=== PATIENT | female | born 1945 | race Caucasian/White ===

== ENCOUNTER → 2016-06-22 | Outpatient (CLI) | payer OTHER ==
[~2016-06-22] MED LIST: AMIT10TA6 PO; ASPCH81X PO; DICY10CA12 PO; FAMO40TA6 PO; GABA1CAP PO; GARL10007 PO; GLUT1POW PO; MISCCAP80 PO
--- NOTE | 2016-06-22 12:32 | DIAGNOSTIC IMAGING REPORT ---
VIDEO SWALLOW STUDY CLINICAL HISTORY: Dysphagia. COMPARISON STUDY: Barium esophagram dated 07/27/2013. Fluoroscopy time: 1.9 minutes. FINDINGS: Fluoroscopic guidance was provided to the Department of speech pathology in performing a video swallow study. The patient consumed barium impregnated pudding, cracker with paste, nectar thick liquid, and thin barium while the swallowing mechanism was observed in real-time. No penetration or aspiration was seen with any of the sampled textures. No significant dysmotility was identified. IMPRESSION: No penetration or aspiration was identified with any of the sampled textures. See dedicated speech pathology report for detailed findings and recommendations. Dictated: 06/22/2016 12:10 PM Transcribed: 06/22/2016 12:32 PM LONNIE_Dieudonne Electronically signed by: Harpreet Bender M.D. 06/22/2016 12:36 PM Dictated Date/Time: 06/22/2016 12:10 PM
--- NOTE | 2016-06-22 15:20 | SWALLOWING EVALUATION ---
HISTORY: This 71 year-old female was referred for a VFSS at [facility] in order to address c/o solid food dysphagia. The patient has a PMH significant for EGD completed in April 2016 that revealed Mckeon's esophagus and a small hiatal hernia. Other PMH: arthritis, asthma, high cholesterol and hypertension. Currently the patient's diet level is regular, but she avoids certain foods (e.g., carrots, chicken). PROCEDURE: The patient was seen in the Radiology Department of [facility] for the VFSS. Cursory examination of the oral cavity revealed adequate dentition. Movement of the articulators was WNL. The patient was seated on a stool and was viewed in both the Anterior-Posterior (A-P) and Lateral planes. Volitional phonation exercises completed in the A-P plane revealed bilateral vocal fold movement and vocal intensity within functional limits, but a hoarse vocal quality. In the lateral plane, the patient was given the following boluses: 1 tsp. thin liquid barium x 2, single swallow thin liquid barium self-presented from a cup, sequential swallows of thin liquid barium self-presented from a cup, 1 tsp. nectar-thick liquid barium, single swallow nectar-thick liquid barium self-presented from a cup, 1 tsp. barium pudding, and 1 club cracker with barium pudding. The patient was then repositioned into the A-P plane and given 1 tsp. barium pudding. RESULTS: Oral Stage: Lip closure, lingual control, bolus preparation, bolus transport were all WNL. No oral residue after the swallow. Initiation of the pharyngeal swallow occurred when the bolus head was at the posterior angle of the ramus. No oral-stage dysphagia. Pharyngeal Stage: Soft palate elevation, laryngeal elevation, anterior hyoid excursion, epiglottic inversion, laryngeal vestibular closure were all completed WNL. Pharyngeal stripping wave, pharyngeal contraction (AP plane), PES opening distention and duration, and tongue base contraction were complete. There were no pharyngeal residuals after the swallow. No penetration or aspiration during this study. Pharyngeal stage of the swallow was WNL. Pt was hesitant to swallow the masticated cracker bolus, but when she swallowed the bolus transitioned to the esophagus as a cohesive unit WNL. Esophageal Stage: Esophageal coating as bolus transited the esophagus, but no bolus retention. SUMMARY/RECOMMENDATIONS: This patient presents with normal oral-pharyngeal swallowing function and no s/s esophageal dysfunction. The following is recommended: 1. Diet as tolerated 2. Compensatory strategies: can alternate solids and liquids during meals if more comfortable for the patient to do so 3. Consideration of f/u with ENT services re: hoarse voice. May also need outpatient TELEHEALTH COORDINATOR treatment for dysphonia. A summary of the results and recommendations was discussed with the patient immediately following the study. She is anticipating f/u with the referring physician. Thank you for referral of this patient. Please contact me at if any additional information is needed.
== END | disposition home or self-care (01) ==
LOC: C.RAD 11:14
PROVIDERS: ATTEND Family Medicine
DX: R13.10 Dysphagia, unspecified (principal)

== ENCOUNTER → 2016-07-06 | Outpatient (CLI) | payer OTHER ==
--- NOTE | 2016-07-06 13:53 | DIAGNOSTIC IMAGING REPORT ---
L-SPINE FLEX/EXT BENDING MIN 6 CLINICAL HISTORY: LOW BACK PAIN pain COMPARISON STUDY: None FINDINGS: Vertebral body stature is normal throughout. Mild degenerative intervertebral disc changes throughout. Minimal degenerative change vertebral endplates. No evidence for compression deformity. IMPRESSION: Mild degenerative change. No acute process. No evidence for subluxation with the patient in flexion or extension Electronically signed by: Jamil Matson M.D. 07/06/2016 1:52 PM Dictated Date/Time: 07/06/2016 1:51 PM
== END | disposition home or self-care (01) ==
LOC: C.RAD 12:52
PROVIDERS: ATTEND Family Medicine
DX: M54.5 Low back pain (principal)

== ENCOUNTER → 2016-07-24 | Outpatient (CLI) | payer OTHER ==
--- NOTE | 2016-07-26 08:05 | PULMONARY FUNCTION TEST ---
INTERPRETATION: The spirometry reveals mild obstruction with no change in the airflow with the use of albuterol. The diffusion capacity when corrected for alveolar volume is slightly increased.
== END | disposition home or self-care (01) ==
LOC: C.RC 12:17
PROVIDERS: ATTEND Family Medicine
DX: R06.02 Shortness of breath (principal); R05 Cough; J45.909 Unspecified asthma, uncomplicated

== ENCOUNTER → 2016-09-25 | Outpatient (CLI) | payer OTHER ==
--- NOTE | 2016-09-25 16:18 | MAMMOGRAPHY REPORT ---
BILATERAL DIGITAL SCREENING MAMMOGRAM WITH CAD: 09/25/2016 CLINICAL HISTORY: Routine screening. Patient has no complaints. TECHNIQUE: Bilateral CC and MLO views were obtained. Current study was also evaluated with a Comput er Aided Detection (CAD) system. COMPARISON: Comparison is made to exams dated: 09/23/2015 mammogram, 09/21/2014 mammogram, 08/12/2013 m ammogram, 08/11/2012 mammogram, 08/09/2011 mammogram, and 08/07/2010 mammogram - [facility]. BREAST COMPOSITION: There are scattered areas of fibroglandular density in both breasts. FINDINGS: There is a 4 mm focal asymmetry in the anterior subareolar left breast, for which additio nal spot compression tomosynthesis views and possibly ultrasound are recommended. No other suspicious mass, architectural distortion or cluster of microcalcifications is seen bilater ally. IMPRESSION: ACR BI-RADS CATEGORY 0: INCOMPLETE EVALUATION: NEED ADDITIONAL IMAGING EVALUATION The 4 mm focal asymmetry in the left subareolar breast needs additional evaluation. The patient will be called to schedule an appointment. Approximately 10% of breast cancers are not detected with mammography. A negative mammographic repor t should not delay biopsy if a clinically suggestive mass is present. Sonia Newsome M.D. ay/:09/25/2016 15:56:25 Assembler Corncob Pipes: Constance [place], [facility] letter sent: Addl Imaging 0 BI-RADS Code: ACR BI-RADS Category 0: Incomplete Evaluation: Need Additional Imaging Evaluation
== END | disposition home or self-care (01) ==
LOC: C.MAMM 13:52
PROVIDERS: ATTEND Family Medicine
DX: Z12.31 Encounter for screening mammogram for malignant neoplasm of breast (principal); R92.8 Other abnormal and inconclusive findings on diagnostic imaging of breast

== ENCOUNTER → 2016-10-01 | Outpatient (CLI) | payer OTHER ==
--- NOTE | 2016-10-02 07:56 | MAMMOGRAPHY REPORT ---
UNILATERAL LEFT DIGITAL DIAGNOSTIC MAMMOGRAM TOMOSYNTHESIS AND TARGETED LEFT ULTRASOUND: 10/01/2016 CLINICAL HISTORY: 71-year-old woman called back from screening mammography for a faint 4 mm focal as ymmetry in the anterior upper inner subareolar left breast. TECHNIQUE: Spot compression left CC and MLO to the digital and tomosynthesis images of the anterior breast were obtained. COMPARISON: Comparison is made to exams dated: 09/25/2016 mammogram, 09/23/2015 mammogram, 09/21/2014 mammogram, 08/12/2013 mammogram, 08/11/2012 mammogram, and 08/09/2011 mammogram - [facility] enter. BREAST COMPOSITION: There are scattered areas of fibroglandular density in the left breast. FINDINGS: There is effacement of the 4 mm nodular focal asymmetry in the anterior upper inner subare olar left breast with the additional supplemental mammographic views including tomosynthesis images. There are 2 benign-appearing calcifications. No suspicious mass, architectural distortion or clus ter of microcalcifications is seen. Targeted ultrasound was performed in the superior, medial and periareolar/retroareolar left breast. In the 2:00 left breast, 1 cm from the nipple, there is a round, circumscribed anechoic benign simp le cyst measuring 3.6 x 2.6 x 3.1 mm. No other suspicious solid or cystic mass is identified in the left breast on ultrasound. IMPRESSION: ACR BI-RADS CATEGORY 2: BENIGN, TARGETED ULTRASOUND ACR BI-RADS CATEGORY 2: BENIGN Effacement of the left breast nodular focal asymmetry, and no suspicious sonographic correlate. A b enign simple cyst was identified in the 2:00 left breast on ultrasound, not definitely the location to correlate with the mammographic asymmetry. Overall, these findings are benign, there is no mammo graphic or targeted sonographic evidence of malignancy, and recommend follow-up at time of next girish al screening mammogram. These results and recommendations were discussed with the patient at the time of the exam. Approximately 10% of breast cancers are not detected with mammography. A negative mammographic repor t should not delay biopsy if a clinically suggestive mass is present. Sonia Newsome M.D. ay/:10/01/2016 14:03:16 Chiropractor Sole Practitioner: Chyna KOENIG(Nithin)([place]), [facility] letter sent: Normal 05/14 BI-RADS Code: ACR BI-RADS Category 2: Benign Ultrasound BI-RADS: ACR BI-RADS Category 2: Benign
== END | disposition home or self-care (01) ==
LOC: C.MAMM 13:21
PROVIDERS: ATTEND Family Medicine
DX: N60.02 Solitary cyst of left breast (principal); R92.8 Other abnormal and inconclusive findings on diagnostic imaging of breast

== ENCOUNTER → 2017-01-29 | Outpatient (CLI) | payer OTHER ==
[2017-01-29 09:29] LABS: BASO % 0.4 %; BASO ABS # 0.02 K/uL (0-0.2); COMPLETE YES; EOS % 7.1 %; HEMATOCRIT 40.2 % (37-47); IG% 0.2 %; LYMPH % 38.5 %; LYMPH ABS # 2.07 K/uL (1.2-3.4); MEAN CELL VOLUME 85.2 fL (80-100); MEAN CORPUSCULAR HEMOGLOBIN 29.9 pg (25-34); MEAN CORPUSCULAR HGB CONC 35.1 g/dl (32-36); MEAN PLATELET VOLUME 10.7 fL (7.4-10.4); MONO % 9.1 %; NEUT % 44.7 %; PLATELET COUNT 228 K/uL (130-400); RED BLOOD COUNT 4.72 M/uL (4.2-5.4); WHITE BLOOD COUNT 5.37 K/uL (4.8-10.8)
[2017-01-29 09:59] LABS: ALT/SGPT 31 U/L (12-78); BLOOD UREA NITROGEN 21 mg/dl (7-18); BUN/CREATININE RATIO 23.1 (10-20); CALCIUM 9.2 mg/dl (8.5-10.1); CARBON DIOXIDE 30 mmol/L (21-32); CHLORIDE 105 mmol/L (98-107); CHOLESTEROL 253 mg/dl (0-200); CREATININE 0.91 mg/dl (0.60-1.20); GLUCOSE 105 mg/dl (70-99); POTASSIUM 3.9 mmol/L (3.5-5.1); SODIUM 140 mmol/L (136-145); TRIGLYCERIDES 176 mg/dl (0-150); VERY LOW DENSITY LIPOPROT CALC 35 mg/dl
[2017-01-29 10:07] LABS: ESTIMATED AVERAGE GLUCOSE 131 mg/dl; HA1C FLAG Normal (Normal)
[2017-01-29 10:09] LABS: ALKALINE PHOSPHATASE 78 U/L (45-117); AST/SGOT 24 U/L (15-37); CHOLESTEROL/HDL RATIO 4.1; HDL CHOLESTEROL 62 mg/dl; LDL CHOLESTEROL CALCULATED 156 mg/dl; TOTAL IRON BINDING CAPACITY 304 mcg/dl (250-450); URIC ACID 5.5 mg/dl (2.6-7.2)
== END | disposition home or self-care (01) ==
LOC: C.LAB 07:50
PROVIDERS: ATTEND Family Medicine
DX: R73.09 Other abnormal glucose (principal); E55.9 Vitamin D deficiency, unspecified; D51.9 Vitamin B12 deficiency anemia, unspecified; E78.9 Disorder of lipoprotein metabolism, unspecified; R53.83 Other fatigue

== ENCOUNTER → 2017-09-26 | Outpatient (CLI) | payer OTHER ==
[~2017-09-26] MED LIST changes: +GABA100C13 PO; -GABA1CAP PO
--- NOTE | 2017-09-26 15:32 | MAMMOGRAPHY REPORT ---
BILATERAL DIGITAL SCREENING MAMMOGRAM TOMOSYNTHESIS WITH CAD: 09/26/2017 CLINICAL HISTORY: Routine screening. Patient has no complaints. TECHNIQUE: Breast tomosynthesis in addition to standard 2D mammography was performed. Current study was also evaluated with a Computer Aided Detection (CAD) system. COMPARISON: Comparison is made to exams dated: 09/25/2016 mammogram, 09/23/2015 mammogram, 09/21/2014 m ammogram, 08/12/2013 mammogram, 08/11/2012 mammogram, and 08/05/2009 mammogram - [facility]. BREAST COMPOSITION: There are scattered areas of fibroglandular density in both breasts. FINDINGS: No suspicious masses, calcifications, or areas of architectural distortion are noted in ei ther breast. There has been no significant interval change compared to prior exams. IMPRESSION: ACR BI-RADS CATEGORY 1: NEGATIVE There is no mammographic evidence of malignancy. A 1 year screening mammogram is recommended. The pa tient will receive written notification of the results. Approximately 10% of breast cancers are not detected with mammography. A negative mammographic report should not delay biopsy if a clinically suggestive mass is present. Cindy Fox M.D. ah/:09/26/2017 13:35:48 Button Tacker: Ashlee KOENIG(Nithin)([place]), [facility] letter sent: Normal 1/2 BI-RADS Code: ACR BI-RADS Category 1: Negative
== END | disposition home or self-care (01) ==
LOC: C.MAMM 12:55
PROVIDERS: ATTEND Family Medicine
DX: Z12.31 Encounter for screening mammogram for malignant neoplasm of breast (principal)

== ENCOUNTER 2018-05-23 01:59 | Observation (INO) ==
[2018-05-23] MEDS ORDERED: diazePAM INJ 5 MG/ML 2 ML CARP IV STA ×2 (02:24→04:53)
[2018-05-23] MEDS ORDERED: ONDANSETRON INJ 2 MG/ML 2 ML VIAL IV STA ×3 (02:24→08:55)
[2018-05-23] MEDS ORDERED: SODIUM CHLORIDE 0.9% 1000ML 1,000 ML IV ONE (02:24)
[2018-05-23 02:41] LABS: Basophils # (auto) 0.03 K/uL (0-0.2); Basophils % (auto) 0.3 %; Eosinophils # (auto) 0.36 K/uL (0-0.5); Eosinophils % (auto) 3.9 %; Hematocrit (blood only) 41.2 % (37-47); Hemoglobin 14.4 g/dL (12.0-16.0); Immature Granulocytes # (auto) 0.01 K/uL (0.00-0.02); Immature Granulocytes % (auto) 0.1 %; Lymphocytes # (auto) 1.78 K/uL (1.2-3.4); Lymphocytes % (auto) 19.1 %; Mean Corpuscular Volume 86.2 fL (80-100); Mean Platelet Volume 10.2 fL (7.4-10.4); Monocytes # (auto) 0.62 K/uL (0.11-0.59); Monocytes % (auto) 6.7 %; Neutrophils # (auto) 6.51 K/uL (1.4-6.5); Neutrophils % (auto) 69.9 %; Platelet Count 229 K/uL (130-400); RDW Coefficient of Variation 12.3 % (11.5-14.5); Red Blood Count 4.78 M/uL (4.2-5.4); White Blood Count 9.31 K/uL (4.8-10.8)
[2018-05-23] MEDS ORDERED: DIAZEPAM 5 MG/ML INJ 10ML VIAL ONE ×2 (02:58→05:15)
[2018-05-23 03:06] LABS: Alanine Aminotransferase 31 U/L (12-78); Albumin Level 3.8 gm/dl (3.4-5.0); Aspartate Aminotransferase 24 U/L (15-37); BUN Creatinine Ratio 20.8 (10-20); Blood Urea Nitrogen 21 mg/dl (7-18); Calcium 9.1 mg/dl (8.5-10.1); Carbon Dioxide 28 mmol/L (21-32); Chloride 105 mmol/L (98-107); Creatinine Clr Calc Pharmacy 49.2 ml/min; Est GFR (African American) 65.6; Est GFR (Non-African American) 56.6; Glucose 122 mg/dl (70-99); Potassium 3.9 mmol/L (3.5-5.1); Sodium 137 mmol/L (136-145)
[2018-05-23 03:28] LABS: Albumin Globulin Ratio 0.9 (0.9-2); Alkaline Phosphatase 85 U/L (45-117); Bilirubin,Total 0.4 mg/dl (0.2-1); Globulin 4.2 gm/dl (2.5-4.0); Troponin I < 0.015 ng/ml (0-0.045)
[2018-05-23] MEDS ORDERED: IOVERSOL 100ml IV PRN (03:51)
[2018-05-23 03:55] LABS: Appearance Urine Clear (Clear); Bilirubin Urine Negative (Negative); Color Urine Yellow; Glucose Urine UA Negative (Negative); Ketones Urine Negative (Negative); Leukocyte Esterase Urine Negative (Negative); Nitrite Urine Negative (Negative); Protein Urine Negative (Negative); Specific Gravity Urine 1.014 (1.000-1.030); Urobilinogen Urine Negative (Negative); pH Urine 7.5 (4.5-7.5)
[2018-05-23] MEDS ORDERED: LABETALOL HCL IV 5 MG/ML 20ML IV STA ×2 (04:02→04:54)
[2018-05-23] MEDS ORDERED: SODIUM CHLORIDE 0.9% 1000ML 1,000 ML IV SCH ×2 (05:00→09:57)
[2018-05-23] MEDS ORDERED: GADOBUTROL 65ML VIAL IV PRN (06:47)
--- NOTE | 2018-05-23 06:56 | CT Scan Report ---
CT angio neck with con HISTORY: Mental status change dizziness, tobin, neck pain TECHNIQUE: Multiaxial CT angiography of the neck was performed IV contrast: 100 cc All measure ments were calculated based on NASCET criteria. Maximum intensity projection images were also obtain ed. A dose lowering technique was utilized adhering to the principles of ALARA. COMPARISON STUDY: 10/12/2011 FINDINGS: The aortic arch and proximal great vessels are widely patent. Complete occlusion origin le ft vertebral artery. Collateral reconstitution although flow appears to be diminished at its mid to d istal aspect. Carotid system shows no significant stenotic process. There is moderate atherosclerotic narrowing of the extracranial carotid arteries bilaterally. Mild plaque formation is noted at the ca rotid bifurcations bilaterally. IMPRESSION: 1. Occlusion origin left vertebral artery with collateral reconstitution at its mid to distal aspect. Flow is diminished. 2. Moderate osteophytic narrowing left external carotid artery. 3. Minimal plaque formation right bifurcation. 4. No significant stenotic process of the carotid systems. The above report was generated using voice recognition software. It may contain grammatical, syntax or spelling errors. Electronically signed by: Jamil Matson M.D. 05/23/2018 6:55 AM
--- NOTE | 2018-05-23 06:57 | CT Scan Report ---
CT OF THE HEAD WITHOUT CONTRAST CLINICAL HISTORY: Headache. Dizziness. COMPARISON STUDY: No previous studies for comparison. TECHNIQUE: Helical axial images of the head were obtained without IV contrast. Automated exposure con trol was utilized for the study. A dose lowering technique was utilized adhering to the principles o f ALARA. FINDINGS: No acute intracranial hemorrhage, midline shift or mass effect is present. Ventricular syst em is normal. Basilar cisterns are patent. There are no extra-axial collections. Resendiz-white different iation is maintained. There are no findings to suggest acute dural sinus thrombosis or acute territor ial infarct. There are no significant calvarial abnormalities. IMPRESSION: No acute intracranial findings. Electronically signed by: Roshan Rashid M.D. 05/23/2018 6:56 AM
--- NOTE | 2018-05-23 07:00 | Magnetic Resonance Report ---
MRI OF THE BRAIN WITHOUT AND WITH IV CONTRAST CLINICAL HISTORY: Dizziness. Vertebral artery occlusion, ?cerebellar infarct COMPARISON STUDY: Head CT and CTA of the head performed earlier today. TECHNIQUE: Utilizing a 1.5 Veronique magnet and dedicated coil, multiplanar, multiecho imaging of the br ain was performed pre and postcontrast administration. IV administration of 6.8 mL of Gadavist contr ast was uneventful. FINDINGS: There are no foci of restricted diffusion to suggest acute infarct. No acute intracranial h emorrhage, midline shift or mass effect is present. Ventricular system is normal. Basilar cisterns ar e patent. There are no extra-axial collections. Flow-voids for the major intracranial vessels are pre sent. No intracranial mass or pathologic enhancement is identified. A few small white matter T2 hyper intense foci suggest minimal small vessel disease. Calvarial signal is maintained. Orbits are unremar kable. IMPRESSION: 1. No acute intracranial findings. 2. No intracranial mass or pathologic enhancement. 3. Minimal small vessel disease. Electronically signed by: Roshan Rashid M.D. 05/23/2018 6:59 AM
--- NOTE | 2018-05-23 07:04 | CT Scan Report ---
CT angio head w con CLINICAL HISTORY: 73 years-old Female with dizziness, tobin. Acute headache with dizziness COMPARISON STUDY: MRI brain of same day, CT head of same day TECHNIQUE: Following the IV administration of 93 cc of Optiray 320, CT angiogram of the brain was per formed from the skull base to the vertex. Images are reviewed in the axial, sagittal, and coronal nata salvatore. 3-D MIPS images are created and assessed. IV contrast was administered without complication. Al l measurements were obtained according to NASCET criteria. A dose lowering technique was utilized adh ering to the principles of ALARA. FINDINGS: CT ANGIOGRAM OF THE BRAIN: The imaged bilateral internal carotid arteries are patent. Mild calcified plaque about the cavernous segments of the ICAs. The bilateral anterior and middle cerebral arteries are also patent. Diminutive left A1 segment, likely developmental. The vertebrobasilar system and posterior cerebral arteries ar e widely patent. There is no aneurysm, high-grade stenosis, or proximal branch occlusion identified. Dural sinuses appear patent. IMPRESSION: Unremarkable CTA of the head without aneurysm, dissection, high-grade stenosis or proxima l branch occlusion. The above report was generated using voice recognition software. It may contain grammatical, syntax o r spelling errors. Electronically signed by: Theo Fontanez M.D. 05/23/2018 7:03 AM
[2018-05-23] MEDS ORDERED: MECLIZINE HCL 25 MG TAB PO ONE (08:57)
[2018-05-23] MEDS ORDERED: MECLIZINE 12.5 MG TAB PO SCH (09:00)
--- NOTE | 2018-05-23 09:07 | History & Physical Report ---
Date of Service May 23, 2018 Assessment & Plan (1) Acute severe vertigo: Patient presenting with the acute onset of severe vertigo with nausea/ emesis starting at midnight tonight. Had transient vertigo in 2018 as well. By history and on exam she has no ataxia, visual field cuts, etc. MRI brain is negative for stroke. I suspect her vertigo is peripheral in origin, perhaps from the right ear. Will place on scheduled antivert q6h. Zofran prn for nausea. Could consider ativan or scopalamine patch, if necessary, for refractory symptoms. PT vestibular evaluation. I have asked Dr. Major from neurology to consult in light of the occluded vertebral artery. However, the artery has collateralization which would suggest it is chronic and probably unrelated to her presentation. Give NS hydration. 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 [id number] will ask neurology to comment on this finding. Check lipids in the AM. Present on Admission?: Yes (3) Asthma: not in exacerbation at this time. albuterol prn. (4) Elevated BP without diagnosis of hypertension: During my visit with her she did not report a personal history of essential HTN. She does not take medication for such. Her BPs have improved during her ER stay but she did receive IV labetalol. I suspect her elevated BPs were due to her feeling very uncomfortable at time of ER presentation. Anxiety could have played a role as well. Plan to simply trend the BPs; hold off on standing medication at this time. (5) Prediabetes: Glucose on BMP in the low 100s. No Rx at this time. (6) Dyspepsia: This is a chronic issue for which she takes H2 bia and intermittent PPI. I suspect she has underlying GERD. (7) DVT prophylaxis: lovenox. admit to observation status. time - 70 minutes. History of Present Illness Chief Complaint: vertigo Primary Care Provider: Charles Chen 73yo female with history of asthma and GERD who presents with the acute onset of vertigo beginning at midnight early this am. She was sleeping and the vertigo woke her from her sleep. The vertigo was initially constant, and now is intermittent, occurring in waves/ attacks. Vertigo is precipitated by sudden movements especially of the head. The episodes now last <1 minute in duration. She has had severe nausea which led to multiple episodes of vomiting in the ER. She was driven to the ER by her and was able to walk into the ER without ataxia. She denies any diplopia, visual field cuts, motor weakness, or paresthesias. No hearing changes or tinnitus. Denies any recent URI or illness. In October 2017 she also had transient vertigo and this was attributed to taking a proton pump inhibitor. When she d/c the medication her vertigo apparently improved. She voices concern that her OTC nexium that she started 2 weeks ago is the culprit for her current symptoms. In addition to the above she reports being diagnosed with migraines (ocular migraines?) by her chemical preparer in the last year. She also reports about 1 year of intermittent right ear pain that would radiate towards the orthodox and the right eye. Saw ENT, Dr. Lopez, and had normal hearing test, normal scope of the sinuses, etc. The pain in this location only occurs seldomly now. She has also had treatment for TMJ syndrome. She reports a considerable amount of stress. Her 47yo son had a stroke in the setting of a cardiomyopathy and he is recovering from such. In the ER she received valium, labetalol, and zofran for her symptoms as well as elevated BP. She felt better with these measures. Allergies Allergy/AdvReac Type Severity Reaction Status Date / Time codeine Allergy Severe TROUBLE Verified 05/23/18 03:19 BREATHING Home Medications Home Medications Medication Instructions Recorded Confirmed Type Ashwagandha 1 tab PO BID 05/23/18 History Estace Cream 0.625 mg VAGINAL DIRECTED 05/23/18 History Magnesium Threonate 500 mg PO HS 05/23/18 History Prelief 1 dose PO DIRECTED 05/23/18 History acetaminophen [Tylenol] 650 mg PO DIRECTED PRN 05/23/18 05/23/18 History albuterol sulfate 2 puff INHALATION BID PRN 05/23/18 05/23/18 History aspirin 81 mg PO DAILY 05/23/18 05/23/18 History cholecalciferol (vitamin D3) 1,000 unit PO DAILY 05/23/18 05/23/18 History [Vitamin D3] dicyclomine 10 mg PO QID PRN 05/23/18 05/23/18 History docusate sodium [Stool Softener] 1 - 2 tab PO DAILY 05/23/18 05/23/18 History esomeprazole magnesium [Nexium] 20 mg PO DAILY 05/23/18 05/23/18 History famotidine 40 mg PO BID 05/23/18 05/23/18 History garlic 1,000 mg PO DAILY 05/23/18 05/23/18 History glutamic acid (bulk) [L-Glutamic 0.5 tsp DIRECTED 05/23/18 05/23/18 History Acid] lactobacillus combination no.4 1 tab PO DIRECTED 05/23/18 05/23/18 History [Probiotic] loratadine [Claritin] 10 mg PO HS PRN 05/23/18 05/23/18 History menthol [Biofreeze (menthol)] 1 applic TOPICAL DIRECTED PRN 05/23/18 History propylene glycol [Systane Balance] 1 - 2 drp OPHTHALMIC (EYE) DAILY 05/23/1803/31 History PRN sodium chloride [Nasal 1 - 2 spray INTRANASAL DAILY PRN 05/23/18 05/23/18 History Moisturizing] zolpidem [Ambien] 5 mg PO HS PRN 05/23/18 05/23/18 History Past Med/Surg History Medical History Asthma (Chronic) HTN (hypertension) Hx of endoscopy Hx of hysterectomy Prediabetes Surgical History History of oophorectomy, unilateral History of total abdominal hysterectomy and additional unilateral oophorectomy Family History Father , age 73 Heart attack Diabetes Mother , 46 Scleroderma Son Heart disease cardiomyopathy Stroke Sister Ovarian cancer Other Cancer Gallbladder disease HTN (hypertension) Social History marital status: Current Living Situation: Spouse Current Living Situation Comment: Carlos Manuel Hyman current occupational status: retired 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 Feels Safe at Home: Yes Safety Concerns: Feels Safe At This Time Smoking Status: Never smoker Do You Dip or Chew Tobacco: No Second Hand Exposure: No Tobacco Cessation Education Requested by Patient: No Hx Alcohol Use: No Hx Substance Use: No Beliefs That Will Affect Care: None Preferred Language: Uzbek Communication Ability: Effective Designer And Patternmaker Required: No Review of Systems Constitutional: + weight loss (10 pounds - due to stress); no fever and no chills Eyes: no blind spots, no diplopia, no loss of peripheral vision and no worsening vision Ear, Nose, Mouth, Throat: + ear pain; no tinnitus, no hearing loss and no nasal congestion Respiratory: no cough and no dyspnea Cardiovascular: no chest pain Gastrointestinal: + nausea, + vomiting and + constipation; no abdominal pain Genitourinary (Female): no dysuria Musculoskeletal: + back pain Integumentary: no rash Neurologic: + unsteadiness and + dizziness; no gait abnormality, no generalized weakness, no paralysis, no numbness, no paresthesia, no lack of coordination, no radiating pain, no tremor(s), no syncope, no headache(s) and no abnormal speech Psychiatric: + anxiety Endocrine: no fatigue Hematologic / Lymphatic: no easy bleeding Physical Exam 2 Vital Signs (Past 24 Hours): Last Vital Signs Temp 36.3 C L 05/23/18 02:03 Pulse 72 05/23/18 06:01 Resp 14 05/23/18 06:01 BP 111/86 05/23/18 06:01 Pulse Ox 98 05/23/18 06:01 Constitutional: well developed, well nourished and average body habitus; no acute distress Eyes: normal visual mendez by confrontation, PERRL and normal accommodation; no eyelid abnormality, no conjunctival abnormality and no scleral abnormality mild horizontal nystagmus towards the right ENMT: external ear and nose normal, oropharynx normal Ears: no EAC abnormality and no TM abnormality Mouth: no oral mucosal abnormality and no tongue abnormality Neck: trachea midline, no thyromegaly Respiratory: normal respiratory effort, lungs clear to auscultation Cardiovascular: RRR, no murmur, no edema Heart Sounds: normal S1 and normal S2 Vessels: posterior tibial pulses present and dorsalis pedis pulses present; no JVD Gastrointestinal (Abdomen): normal bowel sounds, soft, nontender, no hepatosplenomegaly Musculoskeletal: no cyanosis or clubbing, extremities motor strength 5/5 Skin: no rashes, warm and dry Neurologic: patellar DTR's 2+ bilat, sensation intact and PERRL, EOMI, accommodation nl, no face palsy, no dysarthria no focal motor deficits Speech / Cognition: normal speech [id number] maneuver w/o dysmetria; gait not tested due to vertigo Psychiatric: A+Ox3, euthymic affect Lymphatic: no cervical lymphadenopathy Results & Data Laboratory Results Laboratory Results - last 24 hr 05/23/18 05/23/18 05/23/18 02:30 02:30 03:45 WBC 9.31 RBC 4.78 Hgb 14.4 Hct 41.2 MCV 86.2 MCH 30.1 MCHC 35.0 RDW Std Deviation 39.0 RDW Coeff of Marie 12.3 Plt Count 229 MPV 10.2 Immature Gran % (Auto) 0.1 Neut % (Auto) 69.9 Lymph % (Auto) 19.1 Morrow % (Auto) 6.7 Eos % (Auto) 3.9 Baso % (Auto) 0.3 Immature Gran # (Auto) 0.01 Neut # (Auto) 6.51 H Lymph # (Auto) 1.78 Morrow # (Auto) 0.62 H Eos # (Auto) 0.36 Baso # (Auto) 0.03 Sodium 137 Potassium 3.9 Chloride 105 Carbon Dioxide 28 Anion Gap 4.0 BUN 21 H Creatinine 1.00 Est Cr Clr Drug Dosing 49.2 Est GFR ( Amer) 65.6 Est GFR (Non-Af Amer) 56.6 BUN/Creatinine Ratio 20.8 H Glucose 122 H Calcium 9.1 Total Bilirubin 0.4 AST 24 ALT 31 Alkaline Phosphatase 85 Troponin I < 0.015 Total Protein 8.0 Albumin 3.8 Globulin 4.2 H Albumin/Globulin Ratio 0.9 TSH 2.280 Specimen Hemolysis Urine Color Yellow Urine Appearance Clear Urine pH 7.5 Ur Specific Pinson 1.014 Urine Protein Negative Urine Glucose (UA) Negative Urine Ketones Negative Urine Blood Negative Urine Nitrite Negative Urine Bilirubin Negative Urine Urobilinogen Negative Ur Leukocyte Esterase Negative Diagnostic Findings 1. MRI brain negative for acute stroke. 2. CTA head negative for occlusion, aneurysm, etc. 3. CTA neck - IMPRESSION: 1. Occlusion origin left vertebral artery with collateral reconstitution at its mid to distal aspect. Flow is diminished. 2. Moderate osteophytic narrowing left external carotid artery. 3. Minimal plaque formation right bifurcation. 4. No significant stenotic process of the carotid systems. 4. EKG - NSR, no ST changes. Code Status & VTE Plan Code Status level 1 full code VTE Prophylaxis Plan VTE Prophylaxis will be ordered: Yes _ (1) Asthma Asthma severity: mild Asthma persistence: intermittent Asthma complication type: uncomplicated Qualified Code(s): J45.20 - Mild intermittent asthma, uncomplicated
[2018-05-23] MEDS ORDERED: LORATADINE 10 MG TAB PO PRN (09:57)
[2018-05-23] MEDS ORDERED: DICYCLOMINE HCL 10 MG CAP PO PRN (09:57)
[2018-05-23] MEDS ORDERED: ACETAMINOPHEN 325 MG TAB PO PRN (09:57)
[2018-05-23] MEDS ORDERED: ALBUTEROL HFA 8 GM INHALER INH PRN (09:57)
[2018-05-23] MEDS ORDERED: ZOLPIDEM TARTRATE 5 MG TAB PO PRN (09:57)
[2018-05-23] MEDS ORDERED: ONDANSETRON INJ 2 MG/ML 2 ML VIAL IV PRN (09:57)
[2018-05-23 10:49] LABS: Partial Thromboplastin Time 26.3 Seconds (21.0-31.0); Prothrombin Time 10.1 Seconds (9.0-12.0)
[2018-05-23] MEDS: ASPIRIN 81 MG ECTAB PO SCH (11:00)
[2018-05-23] MEDS: CHOLECALCIFEROL 1,000 UNITS TAB PO SCH (11:00)
[2018-05-23] MEDS: FAMOTIDINE 20 MG TAB PO SCH ×2 (11:00→19:58)
[2018-05-23] MEDS: LACTOBACILLUS ACIDOPHILUS (FLORANEX) TAB PO SCH ×2 (11:52→16:53)
--- NOTE | 2018-05-23 11:58 | Neurology Consultation ---
Date of Consultation May 23, 2018 Assessment & Plan (1) Acute severe vertigo: This is a 73-year-old female who presents with acute severe vertigo. No concern for central vertigo and examination is supportive of peripheral vertigo coming from the right ear. Occlusion at the origin of the left vertebral I think is incidental and not giving her any symptoms. No further investigation or intervention is needed for this occlusion. In addition the patient does have some signs of consistent with TMJ of the right jaw (popping, clicking, referred pain to the right ear). Recommendations: No additional neurological investigations needed. Treat symptomatically with medications as you are doing and physical therapy as needed. Thank you for allowing me to participate in this patient's care. If there is any questions or concerns, feel free to call/page me. (2) Occlusion of left vertebral artery: History of Present Illness Reason for Consultation: Acute vertigo and vertebral artery occlusion Attending Physician: Quincy Clinton History of Present Illness This is a 73-year-old female who presents with acute onset of severe vertigo. Reports that she has had a similar but more mild case in October 2017 for about 5 days. Reports that it feels like everything is spinning around her. Appears movement makes it worse. No focal neurological symptoms. No weakness or numbness. No loss of vision. No trouble with speech or swallowing. No chest pain or shortness of breath. No heart palpitations. Patient does have some associated nonspecific headaches since vertigo started which is likely tension headaches. In addition for the last year has had sharp pain intermittently in her ear with a normal ENT examination. She does report intermittent popping and clicking of her right jaw as well as pain in the right cheek. Appears to be consistent with TMJ with referred pain to the ear. MRI of the brain report and images were reviewed by myself and normal. No signs of recent or past strokes. CTA of the head and neck was reviewed and noted to have an occlusion at the origin of the left vertebral with what appears to be good collaterals and reconstitution distally. Past medical history significant for asthma, hypertension, and prediabetes Allergies Allergy/AdvReac Type Severity Reaction Status Date / Time codeine Allergy Severe TROUBLE Verified 05/23/18 03:19 BREATHING Home Medications Home Medications Medication Instructions Recorded Confirmed Type Ashwagandha 1 tab PO BID 05/23/18 History Estace Cream 0.625 mg VAGINAL DIRECTED 05/23/18 History Magnesium Threonate 500 mg PO HS 05/23/18 History Prelief 1 dose PO DIRECTED 05/23/18 History acetaminophen [Tylenol] 650 mg PO DIRECTED PRN 05/23/18 05/23/18 History albuterol sulfate 2 puff INHALATION BID PRN 05/23/18 05/23/18 History aspirin 81 mg PO DAILY 05/23/18 05/23/18 History cholecalciferol (vitamin D3) 1,000 unit PO DAILY 05/23/18 05/23/18 History [Vitamin D3] dicyclomine 10 mg PO QID PRN 05/23/18 05/23/18 History docusate sodium [Stool Softener] 1 - 2 tab PO DAILY 05/23/18 05/23/18 History esomeprazole magnesium [Nexium] 20 mg PO DAILY 05/23/18 05/23/18 History famotidine 40 mg PO BID 05/23/18 05/23/18 History garlic 1,000 mg PO DAILY 05/23/18 05/23/18 History glutamic acid (bulk) [L-Glutamic 0.5 tsp DIRECTED 05/23/18 05/23/18 History Acid] lactobacillus combination no.4 1 tab PO DIRECTED 05/23/18 05/23/18 History [Probiotic] loratadine [Claritin] 10 mg PO HS PRN 05/23/18 05/23/18 History menthol [Biofreeze (menthol)] 1 applic TOPICAL DIRECTED PRN 05/23/18 History propylene glycol [Systane Balance] 1 - 2 drp OPHTHALMIC (EYE) DAILY 05/23/1803/31 History PRN sodium chloride [Nasal 1 - 2 spray INTRANASAL DAILY PRN 05/23/18 05/23/18 History Moisturizing] zolpidem [Ambien] 5 mg PO HS PRN 05/23/18 05/23/18 History Patient History Medical History Asthma (Chronic) HTN (hypertension) Hx of endoscopy Hx of hysterectomy Prediabetes Surgical History History of oophorectomy, unilateral History of total abdominal hysterectomy and additional unilateral oophorectomy Family History Father , age 73 Heart attack Diabetes Mother , 46 Scleroderma Son Heart disease cardiomyopathy Stroke Sister Ovarian cancer Other Cancer Gallbladder disease HTN (hypertension) Social History marital status: Current Living Situation: Spouse Current Living Situation Comment: Carlos Manuel Hyman current occupational status: retired 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 Information That 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 Feels Safe at Home: Yes Safety Concerns: Feels Safe At This Time Smoking Status: Never smoker Do You Dip or Chew Tobacco: No Second Hand Exposure: No Tobacco Cessation Education Requested by Patient: No Hx Alcohol Use: No Hx Substance Use: No Beliefs That Will Affect Care: None Preferred Language: Hebrew Communication Ability: Effective 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 Able to give his own history. Attention concentration normal for the situation. Remote and recent memory intact Speech is fluent without any dysarthria or aphasia noted Cranial nerves: Visual mendez intact. Funduscopic examination was unremarkable with no signs of papilledema. Pupils equally round and reactive to light. Extraocular muscles intact. There is notable nystagmus when looking to the right which would extinguish in about 5 seconds. No facial asymmetry noted. Facial sensation intact. Tongue midline. Good palatal elevation. Good shoulder shrug bilaterally. Hearing grossly intact voice. Strength: 5/5 both proximal and distal in all extremities .Tone is normal. Sensation: Grossly intact to light touch in all extremities Deep tendon reflexes: +1 in bilateral biceps and patellar. Toes are downgoing to plantar stimulation bilaterally Coordination: Patient has good finger to nose without dysmetria. Station within the bed is normal.
[2018-05-23] MEDS ORDERED: ENOXAPARIN INJ 40 MG/0.4 ML SYR SQ SCH (14:00)
[2018-05-23] MEDS: MECLIZINE 12.5 MG TAB PO SCH ×2 (15:01→19:58)
[2018-05-24] MEDS: MECLIZINE 12.5 MG TAB PO SCH ×3 (01:18→14:32)
[2018-05-24 04:56] LABS: Chol HDL Ratio 4; Cholesterol 195 mg/dl (0-200); HDL Cholesterol 50 mg/dl; LDL Cholesterol Calculated 112 mg/dl; Triglycerides 165 mg/dl (0-150); VLDL Cholesterol 33 mg/dl
[2018-05-24] MEDS: CHOLECALCIFEROL 1,000 UNITS TAB PO SCH (08:15)
[2018-05-24] MEDS: LACTOBACILLUS ACIDOPHILUS (FLORANEX) TAB PO SCH ×2 (08:15→11:44)
[2018-05-24] MEDS: ASPIRIN 81 MG ECTAB PO SCH (08:15)
[2018-05-24] MEDS: FAMOTIDINE 20 MG TAB PO SCH (08:15)
[2018-05-24 09:16] LABS: Calcium 8.8 mg/dl (8.5-10.1); Creatinine Clr Calc Pharmacy 45.1 ml/min; Est GFR (African American) 60.5; Est GFR (Non-African American) 52.2; Potassium 3.4 mmol/L (3.5-5.1)
[2018-05-24] MEDS ORDERED: POTASSIUM CHLORIDE 10 MEQ TABCR PO STA (09:53)
--- NOTE | 2018-05-25 22:56 | Emergency Department Note ---
Entered by Migdalia Campbell acting as a scribe for Kirsten Schultz DO History of Present Illness General Chief complaint: Dizziness Stated complaint: DIZZY,NAUSEA Time Seen by Provider: 05/23/18 02:11 Source: patient History of Present Illness Onset (ago): day(s) (yesterday) Location: head Pain Consistency: + constant Maximum Pain Intensity: 3 Quality: + other (dizziness) Relieved By: + movement (of head) and + other (lying flat) Associated symptoms: + denies other symptoms (tinnitus, blurry vision, double vision, palpitations), + fever/chills (Positive chills. Negative fever.), + headaches, + nausea/vomiting (Positive nausea. Negative vomiting. ) and + other (neck pain, increased bowel movements); no chest pain The patient is a 73 year old female who presents to the Emergency Room with complaints of constant dizziness starting yesterday. The patient states that this is the first time she has had dizziness like this. She states that she has had dizziness in the past with a headache, but it was more like she was going to pass out. She states that it was found to be a side effect of her medication she was on and it has since stopped. The patient states that this dizziness feels like she is on a [id number]. She states that it feels like the ceiling is falling on top of her. She reports that it is worse when lying flat and when she moves her head. The patient states that along with the dizziness she is having nausea. She states that she believes it is from a medications as she is on her 15th day of Nexium and has started an increased dose of Premarin. The patient complains of a headache and chills. She notes that she has neck pain and increased bowel movements, but they have been going on for some time. The patient denies tinnitus, blurry vision, double vision, chest pain, palpitations, fever, and vomiting. No recent URI or cold like symptoms. No SOB. Home Medications Home Medications Medication Instructions Recorded Confirmed Type Ashwagandha 1 tab PO BID 05/23/18 History Estace Cream 0.625 mg VAGINAL DIRECTED 05/23/18 History Magnesium Threonate 500 mg PO HS 05/23/18 History Prelief 1 dose PO DIRECTED 05/23/18 History acetaminophen [Tylenol] 650 mg PO DIRECTED PRN 05/23/18 05/23/18 History albuterol sulfate 2 puff INHALATION BID PRN 05/23/18 05/23/18 History aspirin 81 mg PO DAILY 05/23/18 05/23/18 History cholecalciferol (vitamin D3) 1,000 unit PO DAILY 05/23/18 05/23/18 History [Vitamin D3] dicyclomine 10 mg PO QID PRN 05/23/18 05/23/18 History docusate sodium [Stool Softener] 1 - 2 tab PO DAILY 05/23/18 05/23/18 History esomeprazole magnesium [Nexium] 20 mg PO DAILY 05/23/18 05/23/18 History famotidine 40 mg PO BID 05/23/18 05/23/18 History garlic 1,000 mg PO DAILY 05/23/18 05/23/18 History glutamic acid (bulk) [L-Glutamic 0.5 tsp DIRECTED 05/23/18 05/23/18 History Acid] lactobacillus combination no.4 1 tab PO DIRECTED 05/23/18 05/23/18 History [Probiotic] loratadine [Claritin] 10 mg PO HS PRN 05/23/18 05/23/18 History menthol [Biofreeze (menthol)] 1 applic TOPICAL DIRECTED PRN 05/23/18 History propylene glycol [Systane Balance] 1 - 2 drp OPHTHALMIC (EYE) DAILY 05/23/1803/31 History PRN sodium chloride [Nasal 1 - 2 spray INTRANASAL DAILY PRN 05/23/18 05/23/18 History Moisturizing] zolpidem [Ambien] 5 mg PO HS PRN 05/23/18 05/23/18 History meclizine 12.5 mg PO Q6H PRN #30 tab 05/24/18 Rx ondansetron 8 mg PO Q8H PRN #10 tab 05/24/18 Rx Allergies Allergy/AdvReac Type Severity Reaction Status Date / Time codeine Allergy Severe TROUBLE Verified 05/23/18 03:19 BREATHING Past Med/Surg History Medical History Asthma (Chronic) HTN (hypertension) Hx of endoscopy Hx of hysterectomy Prediabetes Surgical History History of oophorectomy, unilateral History of total abdominal hysterectomy and additional unilateral oophorectomy Family History Father , age 73 Heart attack Diabetes Mother , 46 Scleroderma Son Heart disease cardiomyopathy Stroke Sister Ovarian cancer Other Cancer Gallbladder disease HTN (hypertension) Social History marital status: Current Living Situation: Spouse Current Living Situation Comment: Carlos Manuel Hyman current occupational status: retired 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 and A total of 10 systems reviewed and were otherwise negative Physical Exam Vital Signs Vital Signs - 24 hr 05/23/18 02:03 05/23/18 02:27 05/23/18 03:06 Temperature 36.3 C L Temperature Source Oral Sepsis Recent Fever Within 48 Hours No Sepsis New/Unexplained Change in Mental Status No Sepsis Action Taken by Nursing No Action Required Pulse Rate 76 77 73 Pulse Rate [Apical] Pulse Rhythm Regular Pulse Strength Normal Respiratory Rate 20 18 14 Respiratory Effort / Characteristics Non-Labored Spontaneous Respiratory Depth Normal Respiratory Pattern Regular Blood Pressure 200/71 H 221/70 H 194/85 H Blood Pressure [Left Arm] Blood Pressure Mean 114 120 121 Blood Pressure Mean [Left Arm] Blood Pressure Position Sitting Pulse Oximetry 100 97 97 Oxygen Delivery Method Room Air 05/23/18 04:23 05/23/18 04:31 05/23/18 05:01 Temperature Temperature Source Sepsis Recent Fever Within 48 Hours Sepsis New/Unexplained Change in Mental Status Sepsis Action Taken by Nursing Pulse Rate 93 H 74 Pulse Rate [Apical] 70 Pulse Rhythm Pulse Strength Respiratory Rate 14 26 H 17 Respiratory Effort / Characteristics Respiratory Depth Respiratory Pattern Blood Pressure 174/117 H 198/68 H Blood Pressure [Left Arm] 187/88 H Blood Pressure Mean 136 111 Blood Pressure Mean [Left Arm] 121 Blood Pressure Position Pulse Oximetry 99 99 98 Oxygen Delivery Method Room Air 05/23/18 05:16 05/23/18 05:29 05/23/18 05:31 Temperature Temperature Source Sepsis Recent Fever Within 48 Hours Sepsis New/Unexplained Change in Mental Status Sepsis Action Taken by Nursing Pulse Rate 79 75 73 Pulse Rate [Apical] Pulse Rhythm Pulse Strength Respiratory Rate 14 20 14 Respiratory Effort / Characteristics Respiratory Depth Respiratory Pattern Blood Pressure 179/117 H 188/91 H 194/78 H Blood Pressure [Left Arm] Blood Pressure Mean 137 123 116 Blood Pressure Mean [Left Arm] Blood Pressure Position Pulse Oximetry 98 Oxygen Delivery Method 05/23/18 05:46 05/23/18 06:01 Temperature Temperature Source Sepsis Recent Fever Within 48 Hours Sepsis New/Unexplained Change in Mental Status Sepsis Action Taken by Nursing Pulse Rate 72 72 Pulse Rate [Apical] Pulse Rhythm Pulse Strength Respiratory Rate 14 14 Respiratory Effort / Characteristics Respiratory Depth Respiratory Pattern Blood Pressure 151/80 H 111/86 Blood Pressure [Left Arm] Blood Pressure Mean 103 94 Blood Pressure Mean [Left Arm] Blood Pressure Position Pulse Oximetry 96 98 Oxygen Delivery Method Room Air GENERAL: alert, well appearing, well nourished, no distress, non-toxic EYE EXAM: normal conjunctiva, PERRL and EOM's grossly intact, positive horizontal nystagmus with looking to the right. OROPHARYNX: no exudate, no erythema, lips, buccal mucosa, and tongue normal and mucous membranes are moist NECK: supple, no nuchal rigidity, no adenopathy, non-tender LUNGS: Clear to auscultation. Normal chest wall mechanics, no w/r/r HEART: no murmurs, S1 normal and S2 normal ABDOMEN: abdomen soft, non-tender, normo-active bowel sounds, no masses, no rebound or guarding. BACK: Back is symmetrical on inspection and there is no deformity, no midline tenderness, no CVA tenderness. SKIN: no rashes and no bruising UPPER EXTREMITIES: upper extremities are grossly normal. LOWER EXTREMITIES: No pitting edema. NEURO EXAM: Normal sensorium, cranial nerves II-XII intact, normal speech, no weakness of arms, no weakness of legs. No drift. Finger to nose intact. Gross sensation intact. Attempted to complete a HINTS exam. Patient is unable to tolerate head turning due to dizziness and worsening nausea. Course 0213: Past medical records reviewed. The patient was evaluated in room B9, and a complete history and physical examination were performed. 0405: I reevaluated the patient and she is still dizzy. She states that the dizziness was a little better, but she is still nauseated. 0425: I received a call from [facility] at this time. They recommend a MRI of the brain and MRA of the head and neck. 0432: I reevaluated the patient and she is currently vomiting. She is still dizzy. I updated her on her test results at this time. 0501: I discussed the patient's case with Dr. Bobby Eastman. He states that there are no required endovascular interventions necessary at this time. He recommends an MRI and the patient be admitted. 0505: I reevaluated the patient and updated her on the treatment plan. She verbally agrees and understands. 0520: I reviewed the patient's case with Dr. Emilia Silva. He will come see the patient. 0544: I spoke to Dr. Emilia Silva. He would like me consult neurovascular at [facility]. 0616: I discussed the patient's case with Dr. Prasad- Neurovascular Surgeon. He states that there is no indication for neuroendovascular intervention. 0629: I reviewed the patient's case with Dr. Malcolm Silva. He will evaluate the patient for further management. Consultations Consultation #1: I received a call from [facility] at this time. They recommend a MRI of the brain and MRA of the head and neck. Time: 04:25 Consultation #2: I discussed the patient's case with Dr. Bobby Eastman. He states that there are no required endovascular interventions necessary at this time. He recommends an MRI and the patient be admitted. Time: 05:01 Consultation #3: I reviewed the patient's case with Dr. Emilia Silva. He will come see the patient. Time: 05:20 Additional Consultation(s): 0544: I spoke to Dr. Emilia Silva. He would like me consult neurovascular at [facility]. 0616: I discussed the patient's case with Dr. Prasad- Neurovascular Surgeon. He states that there is no indication for neuroendovascular intervention. 0629: I reviewed the patient's case with Dr. Estrada- [facility] He will evaluate the patient for further management. Administered Medications Discontinued Medications Aspirin (Ecotrin Ectab) 81 mg PO DAILY [facility] Stop: 06/22/18 09:56 Last Admin: 05/24/18 08:15 Dose: 81 mg Admin: 05/23/18 11:00 Dose: 81 mg Diazepam (Valium) 2 mg IV NOW STA Stop: 05/23/18 02:25 Last Admin: 05/23/18 03:00 Dose: Not Given Diazepam (Valium) Confirm Administered Dose 5 mg .ROUTE .STK-MED ONE Stop: 05/23/18 02:59 Last Admin: 05/23/18 03:00 Dose: 2 mg Diazepam (Valium) 2 mg IV NOW STA Stop: 05/23/18 04:54 Last Admin: 05/23/18 05:30 Dose: Not Given Diazepam (Valium) Confirm Administered Dose 5 mg .ROUTE .STK-MED ONE Stop: 05/23/18 05:16 Last Admin: 05/23/18 05:29 Dose: 2 mg Enoxaparin Sodium (Lovenox) 40 mg SQ Q24H [facility]IS Stop: 06/22/18 13:59 Last Admin: 05/23/18 15:01 Dose: 40 mg Famotidine (Pepcid) 40 mg PO BID [facility]IS Stop: 06/22/18 09:56 Last Admin: 05/24/18 08:15 Dose: 40 mg Admin: 05/23/18 19:58 Dose: 40 mg Admin: 05/23/18 11:00 Dose: 40 mg Gadobutrol (Gadavist 65ml) 6.8 ml IV ONCE PRN PRN Reason: Interaction Checking Stop: 05/27/18 06:46 Last Admin: 05/23/18 06:37 Dose: 6.8 ml Sodium Chloride (Nss 1000ml) 1,000 mls @ 999 mls/hr IV .Q1H1M ONE Stop: 05/23/18 03:24 Last Infusion: 05/23/18 03:53 Dose: 0 mls/hr Admin: 05/23/18 02:55 Dose: 999 mls/hr Sodium Chloride (Nss 1000ml) 1,000 mls @ 125 mls/hr IV .Q8H [facility]IS Stop: 06/22/18 04:59 Last Infusion: 05/23/18 19:27 Dose: 0 mls/hr Infusion: 05/23/18 17:07 Dose: 0 mls/hr Infusion: 05/23/18 06:32 Dose: 0 mls/hr Admin: 05/23/18 05:30 Dose: 125 mls/hr Sodium Chloride (Nss 1000ml) 1,000 mls @ 100 mls/hr IV .Q10H [facility]ARRIS Stop: 05/23/18 19:56 Last Infusion: 05/23/18 19:21 Dose: 100 mls/hr Admin: 05/23/18 10:22 Dose: 100 mls/hr Ioversol (Optiray 320 100ml) 100 ml IV ONCE PRN PRN Reason: Interaction Checking Stop: 05/27/18 03:50 Last Admin: 05/23/18 03:51 Dose: 93 ml Labetalol HCl (Normodyne) 10 mg IV NOW STA Stop: 05/23/18 04:03 Last Admin: 05/23/18 04:12 Dose: 10 mg Labetalol HCl (Normodyne) 10 mg IV NOW STA Stop: 05/23/18 04:55 Last Admin: 05/23/18 05:29 Dose: 10 mg Lactobacillus Acidophilus (Floranex) 4 tab PO TIDM HARRIS Stop: 06/22/18 11:59 Last Admin: 05/24/18 11:44 Dose: 4 tab Admin: 05/24/18 08:15 Dose: 4 tab Admin: 05/23/18 16:53 Dose: 4 tab Admin: 05/23/18 11:52 Dose: 4 tab Meclizine HCl (Antivert) 12.5 mg PO Q6H HARRIS Stop: 06/22/18 08:59 Last Admin: 05/23/18 09:02 Dose: Not Given Meclizine HCl (Antivert) Confirm Administered Dose 25 mg PO .STK-MED ONE Stop: 05/23/18 08:58 Last Admin: 05/23/18 09:02 Dose: 12.5 mg Meclizine HCl (Antivert) 12.5 mg PO Q6H [facility]IS Stop: 06/22/18 13:59 Last Admin: 05/24/18 14:32 Dose: 12.5 mg Admin: 05/24/18 08:14 Dose: 12.5 mg Admin: 05/24/18 01:18 Dose: 12.5 mg Admin: 05/23/18 19:58 Dose: 12.5 mg Admin: 05/23/18 15:01 Dose: 12.5 mg Ondansetron HCl (Zofran) 4 mg IV NOW STA Stop: 05/23/18 02:25 Last Admin: 05/23/18 02:55 Dose: 4 mg Ondansetron HCl (Zofran) 4 mg IV NOW STA Stop: 05/23/18 04:03 Last Admin: 05/23/18 04:12 Dose: 4 mg Ondansetron HCl (Zofran) 4 mg IV NOW STA Stop: 05/23/18 08:56 Last Admin: 05/23/18 09:02 Dose: 4 mg Potassium Chloride (Klor-Con M10) 30 meq PO NOW STA Stop: 05/24/18 09:54 Last Admin: 05/24/18 11:44 Dose: 30 meq Vitamin D (Vitamin D3) 1,000 units PO DAILY [facility] Stop: 06/22/18 09:56 Last Admin: 05/24/18 08:15 Dose: 1,000 units Admin: 05/23/18 11:00 Dose: 1,000 units Medical Decision Making Differential Diagnosis Differential diagnosis: Etiologies such as benign positional vertigo, labrynthitis, dehydration, hypovolemia, anemia, tumor, infection, hypoglycemia, electrolyte abnormalities, cardiac sources, toxicological sources, central neurologic process, as well as others were entertained. Medical Records Attestation: I reviewed the patient's medical records. Home Medications Current Medication List: was personally reviewed by me Laboratory Data Attestation: I reviewed the patient's lab results. Result diagrams: 05/23/18 02:30 05/24/18 08:32 Lab Results 05/23/18 05/23/18 05/23/18 Range/Units 02:30 02:30 03:45 WBC 9.31 (4.8-10.8) K/uL RBC 4.78 (4.2-5.4) M/uL Hgb 14.4 (12.0-16.0) g/dL Hct 41.2 (37-47) % MCV 86.2 (80-100) fL MCH 30.1 (25-34) pg MCHC 35.0 (32-36) g/dL RDW Std Deviation 39.0 (36.4-46.3) fL RDW Coeff of Marie 12.3 (11.5-14.5) % Plt Count 229 (130-400) K/uL MPV 10.2 (7.4-10.4) fL Immature Gran % (Auto) 0.1 % Neut % (Auto) 69.9 % Lymph % (Auto) 19.1 % [place] % (Auto) 6.7 % Eos % (Auto) 3.9 % Baso % (Auto) 0.3 % Immature Gran # (Auto) 0.01 (0.00-0.02) K/uL Neut # (Auto) 6.51 H (1.4-6.5) K/uL Lymph # (Auto) 1.78 (1.2-3.4) K/uL [place] # (Auto) 0.62 H (0.11-0.59) K/uL Eos # (Auto) 0.36 (0-0.5) K/uL Baso # (Auto) 0.03 (0-0.2) K/uL PT (9.0-12.0) Seconds INR (0.9-1.1) APTT (21.0-31.0) Seconds PTT Ratio Sodium 137 (136-145) mmol/L Potassium 3.9 (3.5-5.1) mmol/L Chloride 105 (98-107) mmol/L Carbon Dioxide 28 (21-32) mmol/L Anion Gap 4.0 (3-11) BUN 21 H (7-18) mg/dl Creatinine 1.00 (0.6-1.2) mg/dl Est Cr Clr Drug Dosing 49.2 ml/min Est GFR ( Amer) 65.6 Est GFR (Non-Af Amer) 56.6 BUN/Creatinine Ratio 20.8 H (10-20) Glucose 122 H (70-99) mg/dl Calcium 9.1 (8.5-10.1) mg/dl Total Bilirubin 0.4 (0.2-1) mg/dl AST 24 (15-37) U/L ALT 31 (12-78) U/L Alkaline Phosphatase 85 (45-117) U/L Troponin I < 0.015 (0-0.045) ng/ml Total Protein 8.0 (6.4-8.2) gm/dl Albumin 3.8 (3.4-5.0) gm/dl Globulin 4.2 H (2.5-4.0) gm/dl Albumin/Globulin Ratio 0.9 (0.9-2) Triglycerides (0-150) mg/dl Cholesterol (0-200) mg/dl LDL Cholesterol, Calc mg/dl VLDL Cholesterol, Calc mg/dl HDL Cholesterol mg/dl Cholesterol/HDL Ratio TSH 2.280 (0.300-4.500) uIu/ml Specimen Hemolysis Urine Color Yellow Urine Appearance Clear (Clear) Urine pH 7.5 (4.5-7.5) Ur Specific [place] 1.014 (1.000-1.030) Urine Protein Negative (Negative) Urine Glucose (UA) Negative (Negative) Urine Ketones Negative (Negative) Urine Blood Negative (Negative) Urine Nitrite Negative (Negative) Urine Bilirubin Negative (Negative) Urine Urobilinogen Negative (Negative) Ur Leukocyte Esterase Negative (Negative) Nasal Screen MRSA (PCR) (Negative) 05/23/18 05/23/18 05/24/18 Range/Units 10:00 10:23 04:10 WBC (4.8-10.8) K/uL RBC (4.2-5.4) M/uL Hgb (12.0-16.0) g/dL Hct (37-47) % MCV (80-100) fL MCH (25-34) pg MCHC (32-36) g/dL RDW Std Deviation (36.4-46.3) fL RDW Coeff of Marie (11.5-14.5) % Plt Count (130-400) K/uL MPV (7.4-10.4) fL Immature Gran % (Auto) % Neut % (Auto) % Lymph % (Auto) % [place] % (Auto) % Eos % (Auto) % Baso % (Auto) % Immature Gran # (Auto) (0.00-0.02) K/uL Neut # (Auto) (1.4-6.5) K/uL Lymph # (Auto) (1.2-3.4) K/uL [place] # (Auto) (0.11-0.59) K/uL Eos # (Auto) (0-0.5) K/uL Baso # (Auto) (0-0.2) K/uL PT 10.1 (9.0-12.0) Seconds INR 1.0 (0.9-1.1) APTT 26.3 (21.0-31.0) Seconds PTT Ratio 1.0 Sodium (136-145) mmol/L Potassium (3.5-5.1) mmol/L Chloride (98-107) mmol/L Carbon Dioxide (21-32) mmol/L Anion Gap (3-11) BUN (7-18) mg/dl Creatinine (0.6-1.2) mg/dl Est Cr Clr Drug Dosing ml/min Est GFR ( Amer) Est GFR (Non-Af Amer) BUN/Creatinine Ratio (10-20) Glucose (70-99) mg/dl Calcium (8.5-10.1) mg/dl Total Bilirubin (0.2-1) mg/dl AST (15-37) U/L ALT (12-78) U/L Alkaline Phosphatase (45-117) U/L Troponin I (0-0.045) ng/ml Total Protein (6.4-8.2) gm/dl Albumin (3.4-5.0) gm/dl Globulin (2.5-4.0) gm/dl Albumin/Globulin Ratio (0.9-2) Triglycerides 165 H (0-150) mg/dl Cholesterol 195 (0-200) mg/dl LDL Cholesterol, Calc 112 mg/dl VLDL Cholesterol, Calc 33 mg/dl HDL Cholesterol 50 mg/dl Cholesterol/HDL Ratio 4 TSH (0.300-4.500) uIu/ml Specimen Hemolysis Urine Color Urine Appearance (Clear) Urine pH (4.5-7.5) Ur Specific [place] (1.000-1.030) Urine Protein (Negative) Urine Glucose (UA) (Negative) Urine Ketones (Negative) Urine Blood (Negative) Urine Nitrite (Negative) Urine Bilirubin (Negative) Urine Urobilinogen (Negative) Ur Leukocyte Esterase (Negative) Nasal Screen MRSA (PCR) Negative (Negative) 05/24/18 Range/Units 08:32 WBC (4.8-10.8) K/uL RBC (4.2-5.4) M/uL Hgb (12.0-16.0) g/dL Hct (37-47) % MCV (80-100) fL MCH (25-34) pg MCHC (32-36) g/dL RDW Std Deviation (36.4-46.3) fL RDW Coeff of Marie (11.5-14.5) % Plt Count (130-400) K/uL MPV (7.4-10.4) fL Immature Gran % (Auto) % Neut % (Auto) % Lymph % (Auto) % [place] % (Auto) % Eos % (Auto) % Baso % (Auto) % Immature Gran # (Auto) (0.00-0.02) K/uL Neut # (Auto) (1.4-6.5) K/uL Lymph # (Auto) (1.2-3.4) K/uL [place] # (Auto) (0.11-0.59) K/uL Eos # (Auto) (0-0.5) K/uL Baso # (Auto) (0-0.2) K/uL PT (9.0-12.0) Seconds INR (0.9-1.1) APTT (21.0-31.0) Seconds PTT Ratio Sodium 142 (136-145) mmol/L Potassium 3.4 L (3.5-5.1) mmol/L Chloride 109 H (98-107) mmol/L Carbon Dioxide 24 (21-32) mmol/L Anion Gap 9.0 (3-11) BUN 14 (7-18) mg/dl Creatinine 1.07 (0.6-1.2) mg/dl Est Cr Clr Drug Dosing 45.1 ml/min Est GFR ( Amer) 60.5 Est GFR (Non-Af Amer) 52.2 BUN/Creatinine Ratio 13.0 (10-20) Glucose 162 H (70-99) mg/dl Calcium 8.8 (8.5-10.1) mg/dl Total Bilirubin (0.2-1) mg/dl AST (15-37) U/L ALT (12-78) U/L Alkaline Phosphatase (45-117) U/L Troponin I (0-0.045) ng/ml Total Protein (6.4-8.2) gm/dl Albumin (3.4-5.0) gm/dl Globulin (2.5-4.0) gm/dl Albumin/Globulin Ratio (0.9-2) Triglycerides (0-150) mg/dl Cholesterol (0-200) mg/dl LDL Cholesterol, Calc mg/dl VLDL Cholesterol, Calc mg/dl HDL Cholesterol mg/dl Cholesterol/HDL Ratio TSH (0.300-4.500) uIu/ml Specimen Hemolysis Urine Color Urine Appearance (Clear) Urine pH (4.5-7.5) Ur Specific [place] (1.000-1.030) Urine Protein (Negative) Urine Glucose (UA) (Negative) Urine Ketones (Negative) Urine Blood (Negative) Urine Nitrite (Negative) Urine Bilirubin (Negative) Urine Urobilinogen (Negative) Ur Leukocyte Esterase (Negative) Nasal Screen MRSA (PCR) (Negative) Imaging Data Radiologist's Impression: Radiology results as stated below per my review and the radiologist's interpretation: CT HEAD: No acute intracranial hemorrhage, midline shift, mass effect, hydrocephalus, or infarct. Bony structures and soft tissues are unremarkable. Radiologist: Penny Dumas MD Study ready at 03:46 and initial results are transmitted at 04:16. CTA HEAD: No evidence of stenosis/occlusion or aneurysm of the intracranial vessels. Radiologist: Penny Dumas MD Study ready at 03:51 and initial results transmitted at 04:24. CTA NECK: There is a short segment of complete occlusion involving the proximal left vertebral artery. The remainder of the vertebral artery is diminutive and decreased in density through the transverse foramen and may be secondary to retrograde collateral flow. The right vertebral artery is patent without stenosis/occlusion or dissection. The bilateral carotid arteries are patent without dissection or stenosis or occlusion. Radiologist: Penny Dumas MD Study ready at 03:47 and initial results transmitted at 04:22. MRI OF THE BRAIN WITHOUT AND WITH IV CONTRAST CLINICAL HISTORY: Dizziness. Vertebral artery occlusion, ?cerebellar infarct COMPARISON STUDY: Head CT and CTA of the head performed earlier today. TECHNIQUE: Utilizing a 1.5 Veronique magnet and dedicated coil, multiplanar, multiecho imaging of the brain was performed pre and postcontrast administration. IV administration of 6.8 mL of Gadavist contrast was uneventful. FINDINGS: There are no foci of restricted diffusion to suggest acute infarct. No acute intracranial hemorrhage, midline shift or mass effect is present. Ventricular system is normal. Basilar cisterns are patent. There are no extra- axial collections. Flow-voids for the major intracranial vessels are present. No intracranial mass or pathologic enhancement is identified. A few small white matter T2 hyperintense foci suggest minimal small vessel disease. Calvarial signal is maintained. Orbits are unremarkable. IMPRESSION: 1. No acute intracranial findings. 2. No intracranial mass or pathologic enhancement. 3. Minimal small vessel disease. Electronically signed by: Roshan Rashid M.D. 05/23/2018 6:59 AM ECG Data Attestation: I personally reviewed and interpreted this ECG as follows: Indication: other (dizziness) Rate (beats per minute): 74 Rhythm: sinus rhythm Findings: + other (normal axis, normal intervals); no PAC, no PVC, no ST depression and no ST elevation Blood Pressure Blood Pressure Findings: Elevated blood pressure Blood Pressure Disposition: further management by hospitalist MDM Narrative Pt presented with vertiginous symptoms worse than prior episodes. Due to being unable to r/o central causes with HINTS exam as pt unable to tolerate it due to symptoms, pt sent for neuroimaging. Given finding on CTA neck, I discussed the case with Dr Thompson. He stated pt should be admitted, have MRI w/wo of the brain, but that there was no indication for neuroendovascular intervention at this time and thus no need for transfer. Case discussed with hospitalist who requested I discuss the case with a neuroendovascular specialist at a tertiary care facility which I did, who stated there was no indication for any neuroendovascular intervention. Agreed with admission for additional evaluation and symptomatic control, however did not feel pt should be urgently transferred but stated he would be happy to provide support for our team here taking care of her if there were any additional questions. Pt was made aware of all results. Pt's BP high and this was felt most likely secondary to her symptoms, but given findings, I did begin giving the pt IV labetolol to help better control this. Pt does already take asa 81 mg daily. No hyperlipidemia she is aware of. Pt was in agreement with the plan and was kept updated. Impression & Plan Dizziness, Vomiting, Occlusion of left vertebral artery, HTN (hypertension) Discharge Plan Visit Data *Final* Discharge Date/Time: 05/23/18 09:29 Chief Complaint: Dizziness Stated Complaint: DIZZY,NAUSEA ED Provider: Kirsten Schultz Discharge Problem: Dizziness, Vomiting, Occlusion of left vertebral artery, HTN (hypertension) Patient Disposition: Admitted As Inpatient Discharge Instructions Interventions: ED Discharge Assessment Last Done: 05/23/18 09:29 The scribe's documentation has been prepared under my direction and personally reviewed by me in its entirety. I confirm that the note above accurately reflects all work, treatment, procedures, and medical decision making performed by me.
--- NOTE | 2018-05-29 23:27 | Discharge Summary ---
Date of Service date of admission - May 23, 2018 date of discharge - May 24, 2018 Admission HPI Per Admitting Provider 73yo female with history of asthma and GERD who presents with the acute onset of vertigo beginning at midnight early this am. She was sleeping and the vertigo woke her from her sleep. The vertigo was initially constant, and now is intermittent, occurring in waves/ attacks. Vertigo is precipitated by sudden movements especially of the head. The episodes now last <1 minute in duration. She has had severe nausea which led to multiple episodes of vomiting in the ER. She was driven to the ER by her and was able to walk into the ER without ataxia. She denies any diplopia, visual field cuts, motor weakness, or paresthesias. No hearing changes or tinnitus. Denies any recent URI or illness. In October 2017 she also had transient vertigo and this was attributed to taking a proton pump inhibitor. When she d/c the medication her vertigo apparently improved. She voices concern that her OTC nexium that she started 2 weeks ago is the culprit for her current symptoms. 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 She also reports about 1 year of intermittent right ear pain that would radiate towards the buddhism and the right eye. Saw ENT, Dr. Lopez, and had normal hearing test, normal scope of the sinuses, etc. The pain in this location only occurs seldomly now. She has also had treatment for TMJ syndrome. She reports a considerable amount of stress. Her 47yo son had a stroke in the setting of a cardiomyopathy and he is recovering from such. In the ER she received valium, labetalol, and zofran for her symptoms as well as elevated BP. She felt better with these measures. Principal Diagnosis acute peripheral vertigo - likely BPV Discharge Exam Constitutional well developed, well nourished and average body habitus; no acute distress Eyes PERRL and normal accommodation; no eyelid abnormality, no conjunctival abnormality and no scleral abnormality ENMT external ear and nose normal, oropharynx normal Mouth: no oral mucosal abnormality and no tongue abnormality Neck trachea midline, no thyromegaly Respiratory normal respiratory effort, lungs clear to auscultation Cardiovascular RRR, no murmur, no edema Heart Sounds: normal S1 and normal S2 Vessels: posterior tibial pulses present and dorsalis pedis pulses present; no JVD Gastrointestinal (Abdomen) normal bowel sounds, soft, nontender, no hepatosplenomegaly Musculoskeletal no cyanosis or clubbing, extremities motor strength 5/5 Skin no rashes, warm and dry Neurologic PERRL, EOMI, accommodation nl, no face palsy, no dysarthria Speech / Cognition: normal speech Psychiatric A+Ox3, euthymic affect Discharge Data Allergies Allergy/AdvReac Type Severity Reaction Status Date / Time codeine Allergy Severe TROUBLE Verified 05/23/18 03:19 BREATHING Consultations neurology PT Ordered Studies 1. CT head - normal, no acute findings. 2. MRI brain - no acute stroke. 3. CTA head - normal, no aneurysm/occlusion/dissection. 4. CTA neck - IMPRESSION: 1. Occlusion origin left vertebral artery with collateral reconstitution at its mid to distal aspect. Flow is diminished. 2. Moderate osteophytic narrowing left external carotid artery. 3. Minimal plaque formation right bifurcation. 4. No significant stenotic process of the carotid systems. Hospital Course (1) Acute severe vertigo: History and exam along with normal MRI brain was highly suggestive of acute peripheral vertigo. It was suspected she had BPV, likely from the right inner ear. She was treated with scheduled antivert and other supportive care measures. Her symptoms improved within 6-12 hours of admission. She was seen in consult by neurology as well as physical therapy. Neurology felt that the left vertebral artery occlusion was an incidental finding and unrelated to her presenting vertigo. When she was seen by physical therapy she underwent a vestibular evaluation. Marjorie maneuver was instructed to the patient in the event of recurrent symptoms at home. She will continue on antivert at home following discharge. Follow-up with her PCP was advised to ensure ongoing improvement. 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 Neurology felt it was unrelated to her presenting vertigo. Lipids were checked and LDL was found to be about 110. Attempts at dietary control of her mildly elevated lipids was recommended. Daily aspirin, however, was advised (81mg daily). (3) Asthma: not in exacerbation during this visit. albuterol prn. (4) Elevated BP without diagnosis of hypertension: The patient had markedly elevated BP at time of ER presentation with systolic BP of 200+. She received IV labetalol in our ER but did not have any additional treatment for the remainder of her 24 hour stay. A review of previous visits to [facility] demonstrated mildly elevated BPs. She could have white coat HTN. I elected NOT to place her on standing BP medication. SBP just prior to discharge was in the 130s. She was counseled to try and check her BPs at home and report these to her PCP. (5) Prediabetes: Controlled during her stay. (6) Dyspepsia: This is a chronic issue for which she takes H2 bia and intermittent PPI. I suspect she has underlying GERD. Total Time Total Time Spent Total Time Spent (In Minutes): 35 Total Time Includes: Examination of the Patient, Discharge Planning, Medication Reconciliation and Communication With Other Providers Discharge Plan Discharge Items Patient Disposition: Home - Self-Care Reason For Visit: ACUTE VERTIGO Discharge Diagnosis: vertigo, likely due to "BPV" (benign positional vertigo) from your right ear Discharge Goals: Diagnostic testing and Therapeutic intervention Activity: As commented below Activity Comment: no strenuous activities/heavy lifting until vertigo is completely resolved Driving/Machine Use Comment: no driving until vertigo is resolved & you are not taking meclizine Non-emergency contact: Primary Care Provider Call non-emergency contact if: you have any medication questions and your symptoms worsen Follow-up/Referrals: Charles Chen [Primary Care Provider] - (within 1 week ) Diet: Regular Addtl Provider Instructions: From Quincy Clinton - Hospitalist: You were admitted for severe, acute vertigo. Your MRI of the brain did NOT show a stroke as the cause of your symptoms. It was felt that your vertigo was coming from your right inner ear. You likely have a condition called "BPV" (benign positional vertigo). Another possibility is that you had a viral infection of the inner ear. Either way the treatment is a medication called meclizine. The meclizine will help the vertigo as well as the nausea. You can also perform the "marjorie maneuver" at home to break the a cycle of vertigo, if necessary. At this time you please do the following - 1. take meclizine 12.5mg every 6 hours scheduled for the next 24 hours. Then, just use the meclizine as needed thereafter. 2. take ondansetron 8mg every 8 hours as needed for nausea. 3. marjorie maneuver as needed. With respect to the blocked artery at the back of the neck --- there is nothing to do for this at this time. This was an incidental finding and not a contributor to your vertigo. Please continue your aspirin as previous. Consider taking a fiber supplement for your cholesterol. Your LDL (Bad cholesterol) was 110. Follow-up - See Dr. Chen within 1 week. Return to [facility] if - * your vertigo returns and it is not responding to the meclizine or the marjorie maneuver * you have uncontrolled vomiting * you have weakness or numbness in any limb * you have difficulty with speech or swallowing * any other concerns Prescriptions: New meclizine 12.5 mg Tablet 12.5 mg PO Q6H PRN (Reason: Vertigo) Qty: 30 RF: 0 ondansetron 8 mg tablet,disintegrating 8 mg PO Q8H PRN (Reason: nausea and vomiting) Qty: 10 RF: 0 Continue famotidine 40 mg Tablet 40 mg PO BID RF: 0 Ashwagandha 1 tab PO BID RF: 0 albuterol sulfate 90 mcg/actuation Hfa Aerosol Inhaler 2 puff INHALATION BID PRN (Reason: sob) RF: 0 glutamic acid (bulk) [L-Glutamic Acid] Powder 0.5 tsp DIRECTED RF: 0 garlic 500 mg Tablet 1,000 mg PO DAILY RF: 0 lactobacillus combination no.4 [Probiotic] 3 billion cell Capsule 1 tab PO DIRECTED RF: 0 aspirin 81 mg Tablet,Delayed Release (Dr/Ec) 81 mg PO DAILY RF: 0 dicyclomine 10 mg Capsule 10 mg PO QID PRN (Reason: Pain) RF: 0 cholecalciferol (vitamin D3) [Vitamin D3] 1,000 unit Capsule 1,000 unit PO DAILY RF: 0 Magnesium Threonate 500 mg PO HS RF: 0 Estace Cream 0.625 mg Vaginal DIRECTED RF: 0 docusate sodium [Stool Softener] 100 mg Capsule 1 - 2 tab PO DAILY RF: 0 Prelief 1 dose PO DIRECTED RF: 0 loratadine [Claritin] 10 mg Tablet 10 mg PO HS PRN (Reason: allergies) RF: 0 menthol [Biofreeze (menthol)] 4 % Gel 1 applic topical DIRECTED PRN (Reason: Pain) RF: 0 acetaminophen [Tylenol] 325 mg Tablet 650 mg PO DIRECTED PRN (Reason: pain/fever) RF: 0 propylene glycol [Systane Balance] 0.6 % Drops 1 - 2 drp OPHTHALMIC (EYE) DAILY PRN (Reason: Dry Eyes) RF: 0 sodium chloride [Nasal Moisturizing] 0.65 % Aerosol,[place] 1 - 2 spray INTRANASAL DAILY PRN (Reason: dryness) RF: 0 zolpidem [Ambien] 5 mg Tablet 5 mg PO HS PRN (Reason: Sleep) RF: 0 esomeprazole magnesium [Nexium] 20 mg Capsule,Delayed Release(Dr/Ec) 20 mg PO DAILY RF: 0 Stand-Alone Forms: [facility] Discharge Orders: Discharge Order (Routine); Ordered 05/24/18 Ordered By: Quincy Clinton Admission Data Admit Date/Time: 05/23/18 08:49 Attending Provider: Quincy Clinton Admit Provider: Quincy Clinton Primary Care Provider: Charles Chen Other Providers: Houston Das ; S[facility] Major Service: Telemetry Other Interventions: Discharge Summary Assessment (RN) Last Done: 05/24/18 14:39 Pending Studies at Discharge: No DC Date/Time DO NOT enter until pt leaves facility: 05/24/18 15:16
== END 2018-05-24 15:16 | disposition home or self-care (01) ==
LOC: ED 01:59 → 1E 01:59

== ENCOUNTER 2021-03-06 16:03 | Inpatient (IN) ==
--- NOTE | 2021-03-06 17:21 | XRay Report ---
XR chest 1V portable CLINICAL HISTORY: Atypical chest pain. COMPARISON STUDY: Chest CT November 19, 2019. Chest radiograph November 18, 2019. FINDINGS: Lung volumes are normal. Lungs are clear. There is no pneumothorax or pleural effusion. Car diac size is normal. Mediastinal contours are normal. There is no evidence for pulmonary edema. IMPRESSION: No acute cardiopulmonary findings. ACT 112: Negative or not required by law. Electronically signed by: Roshan Rashid M.D. 03/06/2021 5:19 PM
[2021-03-06 17:37] LABS: Basophils # (auto) 0.01 K/uL (0-0.2); Basophils % (auto) 0.1 %; Eosinophils # (auto) 0.13 K/uL (0-0.5); Eosinophils % (auto) 1.8 %; Hematocrit (blood only) 40.9 % (37-47); Hemoglobin 14.2 g/dL (12.0-16.0); Immature Granulocytes # (auto) 0.01 K/uL (0.00-0.02); Immature Granulocytes % (auto) 0.1 %; Lymphocytes # (auto) 2.16 K/uL (1.2-3.4); Lymphocytes % (auto) 30.5 %; Mean Corpuscular Hemoglobin 29.8 pg (25-34); Mean Corpuscular Hgb Conc 34.7 g/dL (32-36); Mean Corpuscular Volume 85.7 fL (80-100); Mean Platelet Volume 10.8 fL (7.4-10.4); Monocytes # (auto) 0.65 K/uL (0.11-0.59); Monocytes % (auto) 9.2 %; Neutrophils # (auto) 4.13 K/uL (1.4-6.5); Neutrophils % (auto) 58.3 %; Platelet Count 229 K/uL (130-400); RDW Coefficient of Variation 12.8 % (11.5-14.5); RDW Standard Deviation 40.6 fL (36.4-46.3); Red Blood Count 4.77 M/uL (4.2-5.4); White Blood Count 7.09 K/uL (4.8-10.8)
[2021-03-06 17:55] LABS: D Dimer 580 ug/L FEU (0-500)
[2021-03-06 17:56] LABS: Alanine Aminotransferase 50 U/L (12-78); Albumin Level 3.8 gm/dl (3.4-5.0); Aspartate Aminotransferase 31 U/L (15-37); BUN Creatinine Ratio 17.9 (10-20); Blood Urea Nitrogen 16 mg/dl (7-18); Calcium 9.4 mg/dl (8.5-10.1); Carbon Dioxide 27 mmol/L (21-32); Chloride 106 mmol/L (98-107); Est GFR (African American) 76.6 ml/min; Est GFR (Non-African American) 66.1 ml/min; Glucose 98 mg/dl (70-99); Lipase 102 U/L (73-393); Sodium 139 mmol/L (136-145)
[2021-03-06 18:00] LABS: Albumin Globulin Ratio 0.9 (0.9-2); Alkaline Phosphatase 85 U/L (45-117); Bilirubin,Total 0.3 mg/dl (0.2-1); Total Protein 7.8 gm/dl (6.4-8.2); Troponin I < 0.015 ng/ml (0-0.045)
--- NOTE | 2021-03-06 18:21 | Emergency Department Note ---
Impression & Plan Chest pain, exertional, Exertional shortness of breath ED Provider Note NAME: NICOLAS HEAD AGE: 75 SEX: F : 1945 ARRIVES VIA: Walk-In INFORMANT: Patient ED PROVIDER(S): Daron Ram DO CHIEF COMPLAINT: Shortness of breath and chest pain with exertion HPI: Patient is a 75-year-old female who presents to the ER for chest pain and shortness of breath. The symptoms have been worsening since early to mid January. She has really noticed it in February. Now if she spends 1 minutes on the bike she starts getting short of breath and having chest pain. Chest pain is a burning pain throughout her entire chest. No arm or jaw pain. No belly pain, nausea, vomiting, or diarrhea. She saw Dr. Kessler office who obtained blood work as well as a D-dimer and referred her in here. Denies any dysuria, urgency, or frequency. No other exacerbating or remitting factors. She admits that she has no cardiac history but was recently diagnosed with hypertension as well as diabetes and placed on Metformin. Patient did have exertional chest pain prior to presenting to the PCPs office today as well. ROS: See above HPI for pertinent positives & negatives. A total of 10 systems reviewed and were otherwise negative. PAST MEDICAL HISTORY:See Below PAST SURGICAL HISTORY:See Below FAMILY HISTORY:See Below SOCIAL HISTORY:See Below HOME MEDICATIONS:See Below ALLERGIES:See Below VITALS:See Below PHYSICAL EXAMINATION: GENERAL: Sitting up in bed, alert, well appearing, well nourished, no distress, non-toxic EYE EXAM: normal conjunctiva. OROPHARYNX: no exudate, no erythema, lips, buccal mucosa, and tongue normal and mucous membranes are moist NECK: supple, no nuchal rigidity, no adenopathy, non-tender LUNGS: Clear to auscultation. Normal chest wall mechanics HEART: no murmurs, S1 normal and S2 normal ABDOMEN: abdomen soft, non-tender, normo-active bowel sounds, no masses, no rebound or guarding. UPPER EXTREMITIES: upper extremities are grossly normal. LOWER EXTREMITIES: No pitting edema. Calves are equal bilateral NEURO EXAM: Normal sensorium, cranial nerves II-XII grossly intact, normal speech, no gross weakness of arms, no gross weakness of legs. MEDICAL DECISION MAKING: Patient is a 75-year-old female who presents ER for exertional chest pain shortness of breath which has been present for the past month getting significantly worse. IV was established blood was obtained. Labs show no significant leukocytosis or anemia. D-dimer was slightly elevated and consequently CT angio was obtained which was clean. BMP along with LFTs bilirubin and lipase is unremarkable. Troponin was negative. EKG was non diagnostic. Chest x-ray was unremarkable. Patient was updated bedside. Patient was given aspirin. Discussed the hospitalist for further evaluation due to the exertional symptoms with a negative D-dimer. Triage Nursing notes reviewed. Limited review of prior medical records performed Vital Signs: reviewed and remarkable for HTN Differential diagnosis: Differential diagnoses includes but is not limited to acute coronary syndrome, myocardial infarction, pericarditis, pulmonary embolus, aortic dissection, pneumonia, pneumothorax, musculoskeletal, shingles, esophageal. ER treatment provided: See below Diagnostics interpreted by me: ECG: Sinus rhythm rate of 74 Normal axis No PVCs QTC 450 Cardiac Monitoring: An order was placed for continuous cardiac monitoring. The monitor shows a rate of 70 with sinus rhythm. Laboratory studies: As stated above and show below. Imaging studies: CT angio of the chest shows no PEs Consultation(s): Discussed with hospitalist for further evaluation Procedures: none Critical Care: None Past Med/Surg History Medical History (Updated 03/06/21 @ 22:37 by Daron Ram DO) Acute severe vertigo Chronic back pain Chronic pelvic pain in female Dizziness Lower esophageal ring Occlusion of left vertebral artery Vomiting Surgical History History of colonoscopy History of dilatation and curettage x2 History of esophagogastroduodenoscopy (EGD) (04/2016) History of oophorectomy, unilateral History of root canal procedure History of total abdominal hysterectomy and additional unilateral oophorectomy History of wisdom tooth extraction Family History Father , age 73 Family history of diabetes mellitus Myocardial infarction Mother , 46 Scleroderma Son Heart disease cardiomyopathy Stroke Family history of diabetes mellitus Sister Ovarian cancer Family history of diabetes mellitus Brother Family history of diabetes mellitus Other No family history of adverse response to anesthesia Social History Smoking Status: Never smoker Second Hand Exposure: Yes (father smoked); Hx Alcohol Use: Yes Alcohol type: wine Hx Substance Use: No Preferred Language: Kiswahili Communication Ability: Effective Pl Sql Programmer Required: No Beliefs That Will Affect Care: None marital status: Current Living Situation: Spouse Current Living Situation Comment: Carlos Manuel Hyman 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 Feels Safe at Home: Yes Assistive Devices: Glasses Allergies Allergies Allergy/AdvReac Type Severity Reaction Status Date / Time codeine Allergy Severe TROUBLE Verified 03/06/21 19:19 BREATHING Home Meds Home Medications Medication Instructions Recorded Confirmed albuterol sulfate 90 mcg/actuation 2 puff INHALATION BID PRN 05/23/18 03/06/21 aerosol inhaler aspirin 81 mg tablet,delayed 81 mg PO QDD 05/23/18 03/06/21 release cholecalciferol (vitamin D3) 25 1,000 unit PO QDD 05/23/18 03/06/21 mcg (1,000 unit) capsule (Vitamin D3) docusate sodium 100 mg capsule 1 tab PO QDD 05/23/18 03/06/21 (Stool Softener) loratadine 10 mg tablet (Claritin) 10 mg PO QAM 05/23/18 03/06/21 propylene glycol 0.6 % eye drops 1 - 2 drp OPHTHALMIC (EYE) BID 05/23/18 03/06/21 (Systane Balance) sodium chloride 0.65 % nasal spray 1 - 2 spray INTRANASAL DAILY PRN 05/23/18 03/06/21 aerosol (Nasal Moisturizing) conjugated estrogens 0.625 mg/gram 0.625 mg PV HS gm 01/20/19 03/06/21 vaginal cream trolamine salicylate 10 % topical 1 applic TOPICAL BID PRN 03/23/19 03/06/21 cream (Arthricream) vitamin K2 40 mcg tablet 100 mcg PO QDD tab 04/21/19 03/06/21 famotidine 20 mg tablet (Acid 20 mg PO QAM 11/10/19 03/06/21 Dinkey Motor Operator (famotidine)) Lactobacillus rhamnosus GG 10 1 cap PO QDD 11/19/19 03/06/21 billion cell capsule (Culturelle) acetaminophen 650 mg 650 mg PO Q12H PRN 11/19/19 03/06/21 tablet,extended release (Tylenol Arthritis Pain) melatonin 5 mg tablet 5 mg PO HS PRN 11/19/19 03/06/21 cyanocobalamin (vitamin B-12) 0 mcg PO DAILY 03/06/21 03/06/21 1,000 mcg tablet (Vitamin B-12) omeprazole 40 mg capsule,delayed 40 mg PO HS 03/06/21 03/06/21 release Results & Data (ED) Vital Signs Vital Signs - 24 hr 03/06/21 16:35 03/06/21 20:37 03/06/21 20:38 Temperature 36.5 C Temperature Source Oral Pulse Rate 81 82 Pulse Rate [Radial] 82 Pulse Rate from SpO2 Sensor Respiratory Rate 20 18 18 Blood Pressure 202/77 H Blood Pressure [Left Arm] 200/93 H Blood Pressure Mean 118 Blood Pressure Mean [Left Arm] 128 Blood Pressure Position Sitting Pulse Oximetry 99 100 99 Oxygen Delivery Method Room Air Room Air Sepsis Recent Fever Within 48 Hours No Sepsis New/Unexplained Change in Mental Status N/A Sepsis Action Taken by Nursing No Action Required 03/06/21 21:00 03/06/21 21:15 03/06/21 21:30 Temperature Temperature Source Pulse Rate 82 80 76 Pulse Rate [Radial] Pulse Rate from SpO2 Sensor 84 76 Respiratory Rate 18 20 20 Blood Pressure 186/89 H 186/76 H 163/74 H Blood Pressure [Left Arm] Blood Pressure Mean 121 112 103 Blood Pressure Mean [Left Arm] Blood Pressure Position Pulse Oximetry 99 99 97 Oxygen Delivery Method Room Air Room Air Room Air Sepsis Recent Fever Within 48 Hours Sepsis New/Unexplained Change in Mental Status Sepsis Action Taken by Nursing 03/06/21 22:00 03/06/21 22:30 Temperature Temperature Source Pulse Rate 71 72 Pulse Rate [Radial] Pulse Rate from SpO2 Sensor 71 74 Respiratory Rate 17 17 Blood Pressure 154/65 H 155/62 H Blood Pressure [Left Arm] Blood Pressure Mean 94 93 Blood Pressure Mean [Left Arm] Blood Pressure Position Pulse Oximetry 96 95 Oxygen Delivery Method Room Air Room Air Sepsis Recent Fever Within 48 Hours Sepsis New/Unexplained Change in Mental Status Sepsis Action Taken by Nursing Laboratory Data Result diagrams: 03/06/21 17:20 03/06/21 17:35 Lab Results 03/06/21 03/06/21 03/06/21 Range/Units 17:20 17:20 17:35 WBC 7.09 (4.8-10.8) K/uL RBC 4.77 (4.2-5.4) M/uL Hgb 14.2 (12.0-16.0) g/dL Hct 40.9 (37-47) % MCV 85.7 (80-100) fL MCH 29.8 (25-34) pg MCHC 34.7 (32-36) g/dL RDW Std Deviation 40.6 (36.4-46.3) fL RDW Coeff of Marie 12.8 (11.5-14.5) % Plt Count 229 (130-400) K/uL MPV 10.8 H (7.4-10.4) fL Immature Gran % (Auto) 0.1 % Neut % (Auto) 58.3 % Lymph % (Auto) 30.5 % Pepin % (Auto) 9.2 % Eos % (Auto) 1.8 % Baso % (Auto) 0.1 % Neut # (Auto) 4.13 (1.4-6.5) K/uL Lymph # (Auto) 2.16 (1.2-3.4) K/uL Pepin # (Auto) 0.65 H (0.11-0.59) K/uL Eos # (Auto) 0.13 (0-0.5) K/uL Baso # (Auto) 0.01 (0-0.2) K/uL Immature Gran # (Auto) 0.01 (0.00-0.02) K/uL D-Dimer 580 H* (0-500) ug/L FEU Sodium 139 (136-145) mmol/L Potassium 4.0 (3.5-5.1) mmol/L Chloride 106 (98-107) mmol/L Carbon Dioxide 27 (21-32) mmol/L Anion Gap 6.0 (3-11) BUN 16 (7-18) mg/dl Creatinine 0.87 (0.6-1.2) mg/dl Est Cr Clr Drug Dosing 54.0 ml/min Est GFR ( Amer) 76.6 ml/min Est GFR (Non-Af Amer) 66.1 ml/min BUN/Creatinine Ratio 17.9 (10-20) Glucose 98 (70-99) mg/dl Calcium 9.4 (8.5-10.1) mg/dl Total Bilirubin 0.3 (0.2-1) mg/dl AST 31 (15-37) U/L ALT 50 (12-78) U/L Alkaline Phosphatase 85 (45-117) U/L Troponin I < 0.015 (0-0.045) ng/ml Total Protein 7.8 (6.4-8.2) gm/dl Albumin 3.8 (3.4-5.0) gm/dl Globulin 4.0 (2.5-4.0) gm/dl Albumin/Globulin Ratio 0.9 (0.9-2) Lipase 102 (73-393) U/L Specimen Hemolysis COVID-19 Eval Order SARS-CoV-2 (PCR) (Negative) 03/06/21 03/06/21 Range/Units 20:33 20:33 WBC (4.8-10.8) K/uL RBC (4.2-5.4) M/uL Hgb (12.0-16.0) g/dL Hct (37-47) % MCV (80-100) fL MCH (25-34) pg MCHC (32-36) g/dL RDW Std Deviation (36.4-46.3) fL RDW Coeff of Marie (11.5-14.5) % Plt Count (130-400) K/uL MPV (7.4-10.4) fL Immature Gran % (Auto) % Neut % (Auto) % Lymph % (Auto) % Pepin % (Auto) % Eos % (Auto) % Baso % (Auto) % Neut # (Auto) (1.4-6.5) K/uL Lymph # (Auto) (1.2-3.4) K/uL Pepin # (Auto) (0.11-0.59) K/uL Eos # (Auto) (0-0.5) K/uL Baso # (Auto) (0-0.2) K/uL Immature Gran # (Auto) (0.00-0.02) K/uL D-Dimer (0-500) ug/L FEU Sodium (136-145) mmol/L Potassium (3.5-5.1) mmol/L Chloride (98-107) mmol/L Carbon Dioxide (21-32) mmol/L Anion Gap (3-11) BUN (7-18) mg/dl Creatinine (0.6-1.2) mg/dl Est Cr Clr Drug Dosing ml/min Est GFR ( Amer) ml/min Est GFR (Non-Af Amer) ml/min BUN/Creatinine Ratio (10-20) Glucose (70-99) mg/dl Calcium (8.5-10.1) mg/dl Total Bilirubin (0.2-1) mg/dl AST (15-37) U/L ALT (12-78) U/L Alkaline Phosphatase (45-117) U/L Troponin I (0-0.045) ng/ml Total Protein (6.4-8.2) gm/dl Albumin (3.4-5.0) gm/dl Globulin (2.5-4.0) gm/dl Albumin/Globulin Ratio (0.9-2) Lipase (73-393) U/L Specimen Hemolysis COVID-19 Eval Order Covid19 at [facility] SARS-CoV-2 (PCR) NEGATIVE (Negative) Administered Medications Discontinued Medications Al Hydrox/Mg Hydrox/Simethicone (Aluminum/Magnesium Susp 30 Ml Udc) 15 ml PO NO W STA Stop: 03/06/21 22:14 Last Admin: 03/06/21 22:32 Dose: 15 ml Documented by: [id number] Ioversol (Optiray 320 125ml) 120 ml IV ONCE ONE Stop: 03/06/21 18:54 Last Admin: 03/06/21 18:54 Dose: 120 ml Documented by: [id number] Labetalol HCl (Labetalol Hcl Iv 5 Mg/Ml 20ml) 10 mg IV NOW STA Stop: 03/06/21 20:47 Last Admin: 03/06/21 21:00 Dose: 10 mg Documented by: [id number] Cosigned by: [id number] Lidocaine HCl (Lidocaine Viscous 2% 15 Ml Udc) 15 ml MT NOW STA Stop: 03/06/21 22:19 Last Admin: 03/06/21 22:32 Dose: 15 ml Documented by: [id number] Imaging Data Radiologist's Impression: Chest X-Ray 03/06/21 16:40 XR chest 1V portable CLINICAL HISTORY: Atypical chest pain. COMPARISON STUDY: Chest CT November 19, 2019. Chest radiograph November 18, 2019. FINDINGS: Lung volumes are normal. Lungs are clear. There is no pneumothorax or pleural effusion. Cardiac size is normal. Mediastinal contours are normal. There is no evidence for pulmonary edema. IMPRESSION: No acute cardiopulmonary findings. ACT 112: Negative or not required by law. Electronically signed by: Roshan Rashid M.D. 03/06/2021 5:19 PM Chest CTA 03/06/21 18:10 CT ANGIOGRAPHY OF THE CHEST, PULMONARY EMBOLUS PROTOCOL CLINICAL HISTORY: Shortness of breath, chest pain and elevated d-dimer. Evaluate for pulmonary embolus. COMPARISON STUDY: Chest CT November 19, 2019. Chest radiograph performed earlier today. TECHNIQUE: Following IV administration of 120 mL of Optiray, helical axial images of the chest were obtained utilizing the pulmonary embolus protocol. Maximal intensity projections and sagittal and coronal reformats were viewed on an independent 3D workstation. IV contrast was administered without complication. Automated exposure control was utilized for the study. A dose lowering technique was utilized adhering to the principles of ALARA. CT DOSE: 292.74 mGy.cm FINDINGS: No pulmonary emboli are identified. There is no thoracic aortic dissection. The size of the heart is normal. No enlarged axillary, mediastinal or hilar lymph nodes are present. Central airways are patent. No consolidation to suggest pneumonia. A 3 mm subpleural right lower lobe nodule on image 73 of [address] of November 19, 2019. This is benign. There are no new nodules. There is no pneumothorax or pleural effusion. The central airways are patent. A few calcified granulomas are present. No acute fracture or suspicious lesion is identified within visualized portions of the bony thorax. An 8 mm right hepatic lobe cyst is unchanged. IMPRESSION: 1. No pulmonary emboli identified. 2. No acute process within the chest. ACT 112: Negative or not required by law. Electronically signed by: Roshan Rashid M.D. 03/06/2021 7:11 PM Discharge Plan Visit Data Chief Complaint: Referred by Doctor Stated Complaint: blood clot in lungs, sent by dr malave ED Provider: Daron Ram Discharge Problem: Chest pain, exertional, Exertional shortness of breath Forms Stand Alone Forms: [employer] Prescriptions Prescriptions: No Action conjugated estrogens 0.625 mg/gram cream 0.625 mg PV HS RF: 0 famotidine [Acid Dinkey Motor Operator (famotidine)] 20 mg tablet 20 mg PO QAM RF: 0 albuterol sulfate 90 mcg/actuation Hfa Aerosol Inhaler 2 puff INHALATION BID PRN (Reason: sob) RF: 0 aspirin 81 mg Tablet,Delayed Release (Dr/Ec) 81 mg PO QDD RF: 0 cholecalciferol (vitamin D3) [Vitamin D3] 1,000 unit Capsule 1,000 unit PO QDD RF: 0 docusate sodium [Stool Softener] 100 mg Capsule 1 tab PO QDD RF: 0 loratadine [Claritin] 10 mg Tablet 10 mg PO QAM RF: 0 Systane Balance 0.6 % Drops 1 - 2 drp OPHTHALMIC (EYE) BID RF: 0 sodium chloride [Nasal Moisturizing] 0.65 % Aerosol,Kimberly 1 - 2 spray INTRANASAL DAILY PRN (Reason: dryness) RF: 0 trolamine salicylate [Arthricream] 10 % Cream 1 applic TOPICAL BID PRN (Reason: Pain) RF: 0 vitamin K2 40 mcg tablet 100 mcg PO QDD RF: 0 acetaminophen [Tylenol Arthritis Pain] 650 mg Tablet Extended Release 650 mg PO Q12H PRN (Reason: Pain) RF: 0 Culturelle 10 billion cell Capsule 1 cap PO QDD RF: 0 melatonin 5 mg Tablet 5 mg PO HS PRN (Reason: Sleep) RF: 0 cyanocobalamin (vitamin B-12) [Vitamin B-12] 1,000 mcg Tablet 0 mcg PO DAILY RF: 0 omeprazole 40 mg capsule,delayed release(DR/EC) 40 mg PO HS RF: 0 Referrals Referrals: Charles Malave MD [Primary Care Provider] -
[2021-03-06] MEDS ORDERED: OPTIRAY 320 125ml IV ONE (18:53)
--- NOTE | 2021-03-06 19:12 | CT Scan Report ---
CT ANGIOGRAPHY OF THE CHEST, PULMONARY EMBOLUS PROTOCOL CLINICAL HISTORY: Shortness of breath, chest pain and elevated d-dimer. Evaluate for pulmonary embolu s. COMPARISON STUDY: Chest CT November 19, 2019. Chest radiograph performed earlier today. TECHNIQUE: Following IV administration of 120 mL of Optiray, helical axial images of the chest were o btained utilizing the pulmonary embolus protocol. Maximal intensity projections and sagittal and cor onal reformats were viewed on an independent 3D workstation. IV contrast was administered without co mplication. Automated exposure control was utilized for the study. A dose lowering technique was ut ilized adhering to the principles of ALARA. CT DOSE: 292.74 mGy.cm FINDINGS: No pulmonary emboli are identified. There is no thoracic aortic dissection. The size of th e heart is normal. No enlarged axillary, mediastinal or hilar lymph nodes are present. Central airway s are patent. No consolidation to suggest pneumonia. A 3 mm subpleural right lower lobe nodule on petey ge 73 of [address] of November 19, 2019. This is benign. There are no new nodules. There i s no pneumothorax or pleural effusion. The central airways are patent. A few calcified granulomas are present. No acute fracture or suspicious lesion is identified within visualized portions of the bony thorax. An 8 mm right hepatic lobe cyst is unchanged. IMPRESSION: 1. No pulmonary emboli identified. 2. No acute process within the chest. ACT 112: Negative or not required by law. Electronically signed by: Roshan Rashid M.D. 03/06/2021 7:11 PM
[2021-03-06] MEDS ORDERED: LABETALOL HCL IV 5 MG/ML 20ML IV STA (20:46)
--- NOTE | 2021-03-06 21:01 | History & Physical Report ---
Date of Service March 06, 2021 Assessment & Plan (1) Burning chest pain: Plan: 75 y/o F w/ GERD, IBS, Mejia's esophagus, and hiatal hernia who presents w/ a month of bilateral upper chest burning discomfort exacerbated by eating and exertion. Stable Patient's main symptom complaint appears to be GI related. Considered PUD vs gastritis given chronic nsaid + famotidine use in combination. Considered but lower suspicion for asthma exacerbation and angina as she does not have cardiac hx/risk factors and her respiratory status is at baseline. Lower suspicion for myocarditis (had Anaplasma that was treated last year). After HPI clarification, patient's symptoms are less less consistent w/ dyspnea on exertion. CTA neg for PE. - GI cocktail; Maalox and viscous lidocaine ordered - outpatient ecg (placed in chart to be scanned) looks markedly different from e cg obtained in ED. Outpatient ecg (03/06/21) has QRS axis of -101 w/ multiple ST-T abnormalities; suspect lead misplacement. ECG at [facility] (03/06/21) showing NSR w/ QRS axis of [address]-T changes. Repeat ecg in AM - trop neg x2; trend 3rd troponin - consider echo. consider outpatient treadmill stress test to complete cardiac workup (2) GERD (gastroesophageal reflux disease): Plan: - w/ hx of mejia's. - chronic PPI use - outpatient GI f/u (3) Asthma: Plan: - satting well on room air, no resp distress; lungs clear - albuterol neb PRN only (4) HTN (hypertension): Plan: Patient not on PO antihypertensives as outpt, though her PCP is considering starting one. - defer additional antihypertensive given current BPs 150s-160s systolic while I was in room - update: BP 178/82, amlodipine 5mg PO ordered, reassess in AM (5) Diabetes mellitus: Plan: - PCP precently prescribed metformin for outpatient A1C of 6.7 on 02/22/21, previously was not on medication - defer medication at this time. check glucometer qhs (6) Hiatal hernia: Plan: - chronic, may be contributing to GERD (7) Irritable bowel syndrome with diarrhea: Plan: - chronic, stable (8) Mejia's esophagus determined by endoscopy: Plan: - chronic Plan: FEN/GI: DM2 diet. No IVF. ppx: Lovenox SQ code: full dispo: med/surg History of Present Illness Chief Complaint: burning sensation of chest Primary Care Provider: Charles Chen MD Aleja Avina is a 75 y/o female w/ PMHx of SIBO, GERD, hiatal hernia, allergic rhinitis, Mejia's esophagus, IBS, HTN, DM, asthma, seasonal allergies who presents w/ a month of upper chest burning sensation. It seems to be brought on w/ eating and w/ exertion. There is a pressure sensation that builds up from her abdomen that goes up her chest. She feels that her symptoms are not consistent with dyspnea. She was sent to ED by PCP today for elevated D dimer and concerning ecg. No prior cardiac history. She has been fairly active and going to gym+exercise classes; denies decrease in activity level / metabolic equivalents. She feels that her lungs have burning sensation similar when she hiked up a steep mountain in past. The chest pressure sensation is relieved w/ belching. The chest burning is worse after eating. No weird taste in mouth. Severity of burning sensation unchanged past month. The belching only occurs after eating or after the chest burning sensation. Denies diaphoresis, fevers, chills, wt loss. No melena or hematemesis, hemoptysis, or bloody stool. Never smoker. No etoh or illicit substances. No risk factors for vte other than topical estrogen. Normal home BPs 140s-150s. Denies regular/prolonged nsaid use.Immunized against influenza and covid (Pfizer x2) ED course: labetalol 10 mg IV x 1 for BP of 202/77.CTA neg for PE.CXR w/o acute findings. Ecg NSR w/o ST-T changes. Allergies Allergy/AdvReac Type Severity Reaction Status Date / Time codeine Allergy Severe TROUBLE Verified 03/06/21 19:19 BREATHING Home Medications Medication Instructions Recorded Confirmed Type albuterol sulfate 90 mcg/actuation 2 puff INHALATION BID PRN 05/23/18 03/06/21 History aerosol inhaler aspirin 81 mg tablet,delayed 81 mg PO QDD 05/23/18 03/06/21 History release cholecalciferol (vitamin D3) 25 1,000 unit PO QDD 05/23/18 03/06/21 History mcg (1,000 unit) capsule (Vitamin D3) docusate sodium 100 mg capsule 1 tab PO QDD 05/23/18 03/06/21 History (Stool Softener) loratadine 10 mg tablet (Claritin) 10 mg PO QAM 05/23/18 03/06/21 History propylene glycol 0.6 % eye drops 1 - 2 drp OPHTHALMIC (EYE) BID 05/23/18 03/06/21 History (Systane Balance) sodium chloride 0.65 % nasal spray 1 - 2 spray INTRANASAL DAILY PRN 05/23/18 03/06/21 History aerosol (Nasal Moisturizing) conjugated estrogens 0.625 mg/gram 0.625 mg PV HS gm 01/20/19 03/06/21 History vaginal cream trolamine salicylate 10 % topical 1 applic TOPICAL BID PRN 03/23/19 03/06/21 History cream (Arthricream) vitamin K2 40 mcg tablet 100 mcg PO QDD tab 04/21/19 03/06/21 History famotidine 20 mg tablet (Acid 20 mg PO QAM 11/10/19 03/06/21 History Clean Room Assembler (famotidine)) Lactobacillus rhamnosus GG 10 1 cap PO QDD 11/19/19 03/06/21 History billion cell capsule (Culturelle) acetaminophen 650 mg 650 mg PO Q12H PRN 11/19/19 03/06/21 History tablet,extended release (Tylenol Arthritis Pain) melatonin 5 mg tablet 5 mg PO HS PRN 11/19/19 03/06/21 History cyanocobalamin (vitamin B-12) 0 mcg PO DAILY 03/06/21 03/06/21 History 1,000 mcg tablet (Vitamin B-12) omeprazole 40 mg capsule,delayed 40 mg PO HS 03/06/21 03/06/21 History release Past Med/Surg History Medical History Acute severe vertigo Mejia's esophagus determined by endoscopy Chronic back pain Chronic pelvic pain in female Dyslipidemia GERD (gastroesophageal reflux disease) HTN (hypertension) Lower esophageal ring Occlusion of left vertebral artery Prediabetes Surgical History History of colonoscopy History of dilatation and curettage x2 History of esophagogastroduodenoscopy (EGD) (04/2016) History of oophorectomy, unilateral History of root canal procedure History of total abdominal hysterectomy and additional unilateral oophorectomy History of wisdom tooth extraction Family History Father , age 73 Family history of diabetes mellitus Myocardial infarction Mother , 46 Scleroderma Son Heart disease cardiomyopathy Stroke Family history of diabetes mellitus Sister Ovarian cancer Family history of diabetes mellitus Brother Family history of diabetes mellitus Other No family history of adverse response to anesthesia Social History Smoking Status: Never smoker Second Hand Exposure: Yes (father smoked); Hx Alcohol Use: Yes Alcohol type: wine Hx Substance Use: No Preferred Language: Dutch Communication Ability: Effective [employer] Salesperson Required: No Beliefs That Will Affect Care: None marital status: Current Living Situation: Spouse Current Living Situation Comment: Carlos Manuel Hyman 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 She has had some upper airway congestion and able to to bring up white/clear mucus. Gastrointestinal: Denies abdominal pain, nausea, vomiting, constipation. Intermittent loose stools. Genitourinary: Denies dysuria. Urgency not new, followed by urology. Musculoskeletal: Denies weakness. + upper chest burning sensation intermittently, none currently Neurological: Denies headache, numbness, tingling, focal weakness Psych: + increased life stressors in past year. Physical Exam Physical Exam: General: Grossly A&O. NAD. Cooperative. HEENT: Atraumatic, normocephalic. EOMI Pulm: CTAB. -wheezes, -rales, -rhonchi. No respiratory distress. Cardiac: RRR, -mrg. Radial pulses intact and symmetrical. No LE edema. Abdominal: Nontender, nondistended, soft. No epigastric TTP. Msk: No spinal or paraspinal ttp. No reproducible chest wall tenderness. Neuro: CN II-XII intact. Normal strength and sensation of extremities. Results & Data Results & Data ([facility]) Vital Signs (Past 12 Hours) Vital Signs Temp Pulse Pulse Resp BP BP Pulse Ox 03/06/21 20:38 82 18 200/93 H 99 03/06/21 20:37 82 18 100 03/06/21 16:35 36.5 C 81 20 202/77 H 99 Laboratory Results No leukocytosis. hb stable 14.2 Sevier elev 0.65. d dimer 580. Electrolytes wnl. Cr stable 0.87. 02/22/21 a1c 6.7. liver panel wnl. trop neg x2. 02/22/21 TG 165 chol 235. lipase 102. TSH 1.73 02/22/21. 03/06/21 17:20 03/06/21 17:35 Cardiac Enzymes 03/06/21 Range/Units 17:35 AST 31 (15-37) U/L Troponin I < 0.015 (0-0.045) ng/ml CBC 03/06/21 Range/Units 17:20 WBC 7.09 (4.8-10.8) K/uL RBC 4.77 (4.2-5.4) M/uL Hgb 14.2 (12.0-16.0) g/dL Hct 40.9 (37-47) % Plt Count 229 (130-400) K/uL Neut # (Auto) 4.13 (1.4-6.5) K/uL Lymph # (Auto) 2.16 (1.2-3.4) K/uL Sevier # (Auto) 0.65 H (0.11-0.59) K/uL Eos # (Auto) 0.13 (0-0.5) K/uL Baso # (Auto) 0.01 (0-0.2) K/uL Comprehensive Metabolic Panel 03/06/21 Range/Units 17:35 Sodium 139 (136-145) mmol/L Potassium 4.0 (3.5-5.1) mmol/L Chloride 106 (98-107) mmol/L Carbon Dioxide 27 (21-32) mmol/L BUN 16 (7-18) mg/dl Creatinine 0.87 (0.6-1.2) mg/dl Glucose 98 (70-99) mg/dl Calcium 9.4 (8.5-10.1) mg/dl AST 31 (15-37) U/L ALT 50 (12-78) U/L Alkaline Phosphatase 85 (45-117) U/L Total Protein 7.8 (6.4-8.2) gm/dl Albumin 3.8 (3.4-5.0) gm/dl Intake and Output 03/06/21 03/06/21 03/07/21 14:59 22:59 06:59 Other: Weight 66.4 kg Weight Measurement Method Chair Scale Patient Weight 03/07/21 06:59 Weight 66.4 kg Diagnostic Findings Chest X-Ray 03/06/21 16:40 XR chest 1V portable CLINICAL HISTORY: Atypical chest pain. COMPARISON STUDY: Chest CT November 19, 2019. Chest radiograph November 18, 2019. FINDINGS: Lung volumes are normal. Lungs are clear. There is no pneumothorax or pleural effusion. Cardiac size is normal. Mediastinal contours are normal. There is no evidence for pulmonary edema. IMPRESSION: No acute cardiopulmonary findings. ACT 112: Negative or not required by law. Electronically signed by: Roshan Rashid M.D. 03/06/2021 5:19 PM Chest CTA 03/06/21 18:10 CT ANGIOGRAPHY OF THE CHEST, PULMONARY EMBOLUS PROTOCOL CLINICAL HISTORY: Shortness of breath, chest pain and elevated d-dimer. Evaluate for pulmonary embolus. COMPARISON STUDY: Chest CT November 19, 2019. Chest radiograph performed earlier today. TECHNIQUE: Following IV administration of 120 mL of Optiray, helical axial images of the chest were obtained utilizing the pulmonary embolus protocol. Max imal intensity projections and sagittal and coronal reformats were viewed on an independent 3D workstation. IV contrast was administered without complication. Automated exposure control was utilized for the study. A dose lowering technique was utilized adhering to the principles of ALARA. CT DOSE: 292.74 mGy.cm FINDINGS: No pulmonary emboli are identified. There is no thoracic aortic d issection. The size of the heart is normal. No enlarged axillary, mediastinal or hilar lymph nodes are present. Central airways are patent. No consolidation to suggest pneumonia. A 3 mm subpleural right lower lobe nodule on image 73 of [address] of November 19, 2019. This is benign. There are no new nodules. There is no pneumothorax or pleural effusion. The central airways are patent. A few calcified granulomas are present. No acute fracture or suspicious lesion is identified within visualized portions of the bony thorax. An 8 mm right hepatic lobe cyst is unchanged. IMPRESSION: 1. No pulmonary emboli identified. 2. No acute process within the chest. ACT 112: Negative or not required by law. Electronically signed by: Roshan Rashid M.D. 03/06/2021 7:11 PM ECG Additional Comments: Interpreted by me> NSR 74. No st-t changes. Normal axis and intervals. Code Status & VTE Plan Code Status full VTE Prophylaxis Plan VTE Prophylaxis will be ordered: Yes Supervising Physician Co-Signing Physician Notes Attending addendum: I have physically seen this patient, have supervised the medical residents activities, and agree with the H&P unless as otherwise noted. Assessment and Plan: Chest pain- The patient will be admitted to telemetry for serial cardiac enzymes, serial E KG's, cardiac rhythm monitoring and a 2-D echocardiogram with Dopplers. Outpatient EKG likely with lead placement issues GERD/Mejia's/hiatal hernia- Continue pantoprazole Hypertension- Starting amlodipine as noted Diabetes mellitus- Hold Metformin while in hospital Placed on Accu-Cheks before meals and at bedtime with NovoLog coverage Remaining orders and notations as noted Resident Activity Tracking Resident Involvement: Resident Care Provided Care Provided: Adult Hospital Medicine (1) HTN (hypertension) Hypertension type: unspecified Qualified Code(s): I10 - Essential (primary) hypertension (2) Asthma Asthma complication type: uncomplicated Asthma persistence: intermittent Asthma severity: mild Qualified Code(s): J45.20 - Mild intermittent asthma, uncomplicated
[2021-03-06] MEDS ORDERED: ALUMINUM/MAGNESIUM SUSP 30 ML UDC PO STA (22:13)
[2021-03-06] MEDS ORDERED: LIDOCAINE VISCOUS 2% 15 ML UDC MT STA (22:18)
[2021-03-06] MEDS ORDERED: ASPIRIN CHEW 324 MG PO STA (22:38)
[2021-03-06] MEDS ORDERED: POLYETHYLENE (MIRALAX) 17 GM PACK PO PRN (23:23)
[2021-03-06] MEDS ORDERED: ALBUT/IPRATROP 3MG/0.5MG NEB 3 ML VIAL NEB PRN (23:23)
[2021-03-06] MEDS ORDERED: ALUMINUM/MAGNESIUM SUSP 30 ML UDC PO PRN (23:23)
[2021-03-06] MEDS ORDERED: ONDANSETRON INJ 2 MG/ML 2 ML VIAL IV PRN (23:23)
[2021-03-07] MEDS ORDERED: amLODIPine BESYLATE 5 MG TAB PO STA (00:01)
[2021-03-07 05:41] LABS: Basophils # (auto) 0.01 K/uL (0-0.2); Basophils % (auto) 0.2 %; Eosinophils # (auto) 0.14 K/uL (0-0.5); Eosinophils % (auto) 2.1 %; Hematocrit (blood only) 39.2 % (37-47); Hemoglobin 13.4 g/dL (12.0-16.0); Immature Granulocytes # (auto) 0.01 K/uL (0.00-0.02); Immature Granulocytes % (auto) 0.2 %; Lymphocytes # (auto) 2.36 K/uL (1.2-3.4); Lymphocytes % (auto) 35.7 %; Mean Corpuscular Hemoglobin 28.9 pg (25-34); Mean Corpuscular Hgb Conc 34.2 g/dL (32-36); Mean Corpuscular Volume 84.5 fL (80-100); Mean Platelet Volume 10.8 fL (7.4-10.4); Monocytes % (auto) 10.6 %; Neutrophils # (auto) 3.39 K/uL (1.4-6.5); Neutrophils % (auto) 51.2 %; Platelet Count 253 K/uL (130-400); RDW Coefficient of Variation 13.2 % (11.5-14.5); RDW Standard Deviation 40.2 fL (36.4-46.3); Red Blood Count 4.64 M/uL (4.2-5.4); White Blood Count 6.61 K/uL (4.8-10.8)
[2021-03-07 06:01] LABS: Albumin Level 3.2 gm/dl (3.4-5.0); BUN Creatinine Ratio 16.1 (10-20); Calcium 8.8 mg/dl (8.5-10.1); Creatinine Clr Calc Pharmacy 47.9 ml/min; Est GFR (African American) 66.3 ml/min; Est GFR (Non-African American) 57.2 ml/min; Potassium 3.8 mmol/L (3.5-5.1)
[2021-03-07 06:04] LABS: Albumin Globulin Ratio 0.8 (0.9-2); Bilirubin,Total 0.6 mg/dl (0.2-1); Globulin 3.8 gm/dl (2.5-4.0)
[2021-03-07] MEDS: ENOXAPARIN INJ 40 MG/0.4 ML SYR SQ SCH (09:29)
[2021-03-07] MEDS ORDERED: NITROGLYCERIN SL 0.4 MG/TAB TAB SL PRN (11:08)
[2021-03-07] MEDS ORDERED: NITROGLYCERIN/D5W 100MCG/ML 20ML SYR ONE (13:22)
[2021-03-07] MEDS ORDERED: niCARdipine HCL INJ 2.5 MG/ML 10 ML AMP ONE (13:22)
[2021-03-07] MEDS ORDERED: HEPARIN (PORCINE) 1000 UNIT/ML 10 ML (CATH LAB USE ONLY) ONE (13:22)
[2021-03-07] MEDS ORDERED: fentaNYL citrate 100 MCG/2 ML VIAL ONE (13:22)
[2021-03-07] MEDS ORDERED: MIDAZOLAM HCL 1 MG/ML 2ML VIAL ONE ×2 (13:22→13:58)
--- NOTE | 2021-03-07 13:39 | Pre Anesthesia Assessment ---
Date of Service March 07, 2021 Pre Sedation Assessment Vital Signs Temp Pulse Pulse Pulse Resp BP BP 03/07/21 10:30 36.7 C 80 18 126/72 03/06/21 23:23 36.6 C 74 18 178/82 H 03/06/21 22:30 72 17 155/62 H 03/06/21 22:00 71 17 154/65 H 03/06/21 21:30 76 20 163/74 H 03/06/21 21:15 80 20 186/76 H 03/06/21 21:00 82 18 186/89 H 03/06/21 20:38 82 18 200/93 H 03/06/21 20:37 82 18 03/06/21 16:35 36.5 C 81 20 202/77 H Pulse Ox 03/07/21 10:30 98 03/06/21 23:23 97 03/06/21 22:30 95 03/06/21 22:00 96 03/06/21 21:30 97 03/06/21 21:15 99 03/06/21 21:00 99 03/06/21 20:38 99 03/06/21 20:37 100 03/06/21 16:35 99 Cardiovascular RRR, no murmur, no edema Respiratory normal respiratory effort, lungs clear to auscultation Pre-Sedation Airway Assessment Smoking Status: Never smoker Mallampati Class: III ASA: ASA3 NPO Status Date of Last Intake of Fluids: 03/07/21 Time of Last Intake of Fluids: 08:00 Date of Last Intake of Solid Food: 03/07/21 Time of Last Intake of Solid Foods: 08:00 Procedure Planning Contraindications for Sedation: none Current Medications Reviewed: Yes Notes The planned sedation has been discussed with the patient. Informed Consent was obtained. I have identified the patient, determined the appropriateness of sedation and have assessed the patient immediately prior to the procedure. All medicine(s) and interventions are by my order.
[2021-03-07] MEDS ORDERED: CLOPIDOGREL BISULFATE 300 MG TAB ONE (14:35)
[2021-03-07] MEDS ORDERED: ASPIRIN 81 MG CHEW ONE (14:37)
--- NOTE | 2021-03-07 14:52 | Cardiac Catheterization ---
[facility] Data: Screen Tender Cardiac Status Clinical evaluation leading to the procedure CAD Presenation: Positive Stress Test and Stable angina Anginal Classification: CCS III Heart Failure: No Cardiogenic Shock within 24 Hours: No Cardiac Arrest within 24 Hours: No Imaging Studies Past 6 Months: Yes Stress Studies Past 6 Months: Yes Standard Exercise Test: Yes - Indeterminant Stress Echocardiogram: Yes - Positive and Risk/Extent of Ischemia (Intermediate) Stress Testing w/SPECT MPI: No Cardiac CTA: No Coronary Anatomy Dominant: Right Diagnostic Physicians Name: Rachid Roque MD Status: Elective Closure Device Percutaneous Entry Location: Radial Closure Device: Radial Band Recommendations: PCI without planned CABG Cardiac Cath Procedure Full Procedure Date March 07, 2021 Pre-Procedure Diagnosis Pre-Procedure Diagnosis: Angina and Positive Stress Test AUC Score AUC Score: 8 Post-Procedure Diagnosis Post-Procedure Diagnosis: Severe CAD and Normal Intracardiac Pressures Procedure(s) Performed Procedure(s) Performed: Coronary Angiography, Left Heart Cath and Ultrasound Guided Vascular Access Larriman Helper Rachid Roque MD Computer Clerk(s) Ophelia Estimated Blood Loss Estimated Blood Loss: < 25 ml Medication(s) Medication(s): Fentanyl, Lidocaine 1%, Nicardipine and Versed Summary of Findings Procedures: 1. Coronary angiography 2. Left heart catheterization 3. Moderate sedation 4. Ultrasound for arterial guidance Indication: 75-year-old female with multiple risk factors for CAD who presented with exertional anginal symptoms and abnormal stress echo suggesting LAD territory ischemia. Coronary angiography: 1. Left main: No significant CAD. 2. Left anterior descending: Ostial LAD 30%. Mid LAD 95 to 98%. Distal LAD 20% smooth narrowing. NASEEM II flow. Diagonal without significant CAD. 3. Circumflex: No significant CAD within the circumflex. Large OM1 with proximal 20% stenosis. 4. Right coronary artery: Large and dominant. Mid RCA diffuse 10 to 20%. PDA and PL without significant CAD. Left heart catheterization: 1. Left ventriculography was not performed. 2. No aortic stenosis. 3. Normal LVEDP; 8 mmHg. Ultrasound guidance: 1. Ultrasound was used for right femoral arterial access. The needle was passed into the right femoral artery without complication, on the first stick. Moderate sedation: 1. Sedation start time: 1:51 PM 2. Sedation end time: 2:35 PM Procedural notes: 1. Initially, right radial artery was accessed and wire was easily advanced however 5 [place] JR4 diagnostic catheter was unable to be sufficiently advanced due to suspected spasm. Nicardipine and sublingual nitroglycerin was administered. After waiting several minutes, J-wire was unable to be advanced, once again due to suspected spasm. A Glidewire was advanced but a 4 [place] JR4 diagnostic catheter was unable to be advanced into the central circulation. The decision was made to perform diagnostic angiography via the right femoral artery. Impression: 1. Severe mid LAD CAD. 2. Otherwise nonobstructive CAD. 3. Normal left-sided filling pressure. 4. No aortic stenosis. Plan: 1. Dr. Wise, cable installation manager, was asked to review images for consideration of LAD PCI. He plans on performing PCI of the LAD. 2. Risk factor modification. Hemodynamics Rest Ao:: 96/50 Final Ao: 113/55 LV: 119/1/8 Recommendations Recommendations: PCI without planned CABG Specimens Specimens: None Radiation Exposure (mGy) 379 mGy. Fluoro time 7.5 min. Contrast (mls) 20 ml Procedural Complication(s) None Disposition remains in medical laboratory technicians for PCI I attest to the content of the Intraoperative Record and any orders documented therein. Any exceptions are noted below. [id number] Card Cath Procedure Codes Cardiac Catheterization Procedure 1: Cardiovascular Cath Procedures: 24569 Coronaries and LHC (+/-LV) Therapeutic Services & Ancillary Proc Procedure 1: Cardiovascular Tx and Anc Procedures: 59160 Ultrasonic Guidance Vascular Access Moderate Sedation Procedure 1: Sedation/Anesthesia: 21780 Mod Sedation by the same physician;Init15 Min Child Age 5 & Up Procedure 2: Sedation/Anesthesia: 92561 Mod Sedation by the same physician; Ea [id number] Minutes Procedure 3: Sedation/Anesthesia: 20826 Mod Sedation by the same physician; Ea [id number] Minutes PG Care Time/CCT Total # of Minutes Spent Total Time Spent with Patient: Total time spent is greater than 50% in coordination of care (as documented) at patient's floor/unit and/or counseling patient:
--- NOTE | 2021-03-07 14:58 | Cardiac Catheterization ---
[facility] Data: Statistician Cardiac Status Clinical evaluation leading to the procedure CAD Presenation: Positive Stress Test and Unstable angina Anginal Classification: CCS IV Imaging Studies Past 6 Months: Yes Coronary Anatomy LAD (% Stenosis): Mid (90) Diagnostic Physicians Name: Puma Wise MD Closure Device Recommendations: PCI without planned CABG Lesion Culprit Artery: Yes Stenosis Prior to Rx (%): 90 reduced to 0 with 3.0x18 MIGDALIA Pre-Procedure NASEEM Flow: 3 Previously Treated Lesion: No Lesion Complexity: Non-High/Non-C Lesion Length (mm): 12 Thrombus Present: No Bifurcation Lesion: No Guidewire Across Lesion: Yes Cardiac Cath Procedure Full Procedure Date March 07, 2021 Pre-Procedure Diagnosis Pre-Procedure Diagnosis: Acute Coronary Syndrome AUC Score AUC Score: 0.8 Post-Procedure Diagnosis Post-Procedure Diagnosis: Successful PCI Procedure(s) Performed Procedure(s) Performed: Drug Eluting Stent Ammonium Nitrate Crystallizer Puma Wise MD Estimated Blood Loss Estimated Blood Loss: None Summary of Findings Single vessel disease (90% mid LAD ) identified by diagnostic cath performed by Dr Roque Hemodynamics Rest Ao:: 100/60 Final Ao: 100/60 LV: 100/2 Recommendations Recommendations: PCI without planned CABG Radiation Exposure (mGy) 58.49 Contrast (mls) 30 Procedural Complication(s) None I attest to the content of the Intraoperative Record and any orders documented therein. Any exceptions are noted below. PG Care Time/CCT Total # of Minutes Spent Total Time Spent with Patient: Total time spent is greater than 50% in coordination of care (as documented) at patient's floor/unit and/or counseling patient:
--- NOTE | 2021-03-07 15:15 | Cardiology Consultation ---
Date of Consultation March 07, 2021 Assessment & Plan (1) Exertional angina: (2) Abnormal stress echo: (3) HTN (hypertension): (4) Dyslipidemia: ASSESSMENT/PLAN: 1. Exertional angina: Symptoms are consistent with crescendo angina. She has since been found to have abnormal stress echo. Results of stress echo discussed with her. Recommend cardiac catheterization. Risks and benefits were discussed with her in detail. She was made aware that CT surgery is not available at this facility. She has received full-dose aspirin. Consider beta-bia. 2. Abnormal stress Echo: Concerning for LAD ischemia. Cardiac catheterization as above. 3. Hypertension: Blood pressure has been elevated throughout most of her hospital stay. Recommend beta-bia given concern for CAD. Consider JULES- inhibitor as well. 4. Dyslipidemia: High-intensity statin therapy recommended. 5. Disposition: Cardiac catheterization was recommended and arranged. Her daughter was updated as per her request via telephone. Primary hospitalist service, Dipti Maza, was personally called and patient care was discussed. Addendum: Cardiac catheterization demonstrated severe mid LAD CAD. She underwent PCI with 3 x 18 mm MIGDALIA. Recommend aspirin 81 mg daily indefinitely. Recommend Plavix 75 mg daily for at least 6 months, but preferably a year or longer. Recommend that she remain hospitalized overnight as she underwent procedure via right femoral artery due to right radial arterial spasm. Highly complex medical issues. Thank you for allowing me to participate in the care of your patient. Please call for any other questions or concerns. Sincerely, Jerry Roque M.D. History of Present Illness Reason for Consultation: Angina and abnormal stress echo Requesting Physician: Bro Hernandez DO Attending Physician: Bro Hernandez DO History of Present Illness Mrs. Avina is a very pleasant 75-year-old female with a history significant for hypertension, dyslipidemia, pre diabetes, and strong family history of CAD. She was admitted on 03/06/2021 with exertional chest discomfort. Her troponins were negative. Presenting ECG was unremarkable. A stress echo was ordered by the primary hospitalist service and abnormal, suggesting LAD ischemia (distal inferior wall and apex). She described her chest discomfort is a burning sensation across her chest. It has been present for the past 1-2 months and has been worsening. It is taking less and less exertion to bring about her symptoms. She denies any rest symptoms. There is associated mild dyspnea but no diaphoresis or radiation of the pain. Her exercise tolerance has decreased. Her chest discomfort is not triggered by food, but she admits that she often would walk after eating and would experience the chest discomfort during her exertion. Symptoms improved with belching and rest, within minutes. She recently underwent evaluation by her PCP and was found to have heme-negative stool on screening. Following stress echo, cardiology consultation was requested. She was chest pain-free. She denies chest discomfort while walking on the treadmill. Exercise was terminated due to severe hypertension. Her resting EF was normal and there were no significant valvular abnormalities noted on preliminary review. She denies syncope, near-syncope, palpitations, edema, or bleeding. Review of systems: As above. Review of systems otherwise negative/unremarkable. Family history: Father at 73 with ND. Brother at 60 with ND. Sister had CABG near 65 years of age. Daughter has elevated lipids. Son with CHF with severe LV systolic dysfunction diagnosed at the age of 50. He also had strokes. Grandchild with cancer. Social history: She denies tobacco or drug abuse. Rare alcohol. She lives at home with her . Two children (son and daughter). She has grandchildren. She is retired. She was unaccompanied during today's visit but requested that discuss her care with her daughter, Fiorella Beckford, via telephone. Allergies Allergy/AdvReac Type Severity Reaction Status Date / Time codeine Allergy Severe TROUBLE Verified 03/06/21 19:19 BREATHING Home Medications Medication Instructions Recorded Confirmed Type albuterol sulfate 90 mcg/actuation 2 puff INHALATION BID PRN 05/23/18 03/06/21 History aerosol inhaler aspirin 81 mg tablet,delayed 81 mg PO QDD 05/23/18 03/06/21 History release cholecalciferol (vitamin D3) 25 1,000 unit PO QDD 05/23/18 03/06/21 History mcg (1,000 unit) capsule (Vitamin D3) docusate sodium 100 mg capsule 1 tab PO QDD 05/23/18 03/06/21 History (Stool Softener) loratadine 10 mg tablet (Claritin) 10 mg PO QAM 05/23/18 03/06/21 History propylene glycol 0.6 % eye drops 1 - 2 drp OPHTHALMIC (EYE) BID 05/23/18 03/06/21 History (Systane Balance) sodium chloride 0.65 % nasal spray 1 - 2 spray INTRANASAL DAILY PRN 05/23/18 03/06/21 History aerosol (Nasal Moisturizing) conjugated estrogens 0.625 mg/gram 0.625 mg PV HS gm 01/20/19 03/06/21 History vaginal cream trolamine salicylate 10 % topical 1 applic TOPICAL BID PRN 03/23/19 03/06/21 History cream (Arthricream) vitamin K2 40 mcg tablet 100 mcg PO QDD tab 04/21/19 03/06/21 History famotidine 20 mg tablet (Acid 20 mg PO QAM 11/10/19 03/06/21 History Tanning Drum Operator (famotidine)) Lactobacillus rhamnosus GG 10 1 cap PO QDD 11/19/19 03/06/21 History billion cell capsule (Culturelle) acetaminophen 650 mg 650 mg PO Q12H PRN 11/19/19 03/06/21 History tablet,extended release (Tylenol Arthritis Pain) melatonin 5 mg tablet 5 mg PO HS PRN 11/19/19 03/06/21 History cyanocobalamin (vitamin B-12) 0 mcg PO DAILY 03/06/21 03/06/21 History 1,000 mcg tablet (Vitamin B-12) omeprazole 40 mg capsule,delayed 40 mg PO HS 03/06/21 03/06/21 History release Patient History Medical History Acute severe vertigo Mckeon's esophagus determined by endoscopy Chronic back pain Chronic pelvic pain in female Dyslipidemia GERD (gastroesophageal reflux disease) HTN (hypertension) Lower esophageal ring Occlusion of left vertebral artery Prediabetes Surgical History History of colonoscopy History of dilatation and curettage x2 History of esophagogastroduodenoscopy (EGD) (04/2016) History of oophorectomy, unilateral History of root canal procedure History of total abdominal hysterectomy and additional unilateral oophorectomy History of wisdom tooth extraction Family History Father , age 73 Family history of diabetes mellitus Myocardial infarction Mother , 46 Scleroderma Son Heart disease cardiomyopathy Stroke Family history of diabetes mellitus Sister Ovarian cancer Family history of diabetes mellitus Brother Family history of diabetes mellitus Other No family history of adverse response to anesthesia Social History Smoking Status: Never smoker Second Hand Exposure: Yes (father smoked); Hx Alcohol Use: Yes Alcohol type: wine Hx Substance Use: No Preferred Language: Canadian Communication Ability: Effective Fur Machine Operator Required: No Beliefs That Will Affect Care: None marital status: Current Living Situation: Spouse Current Living Situation Comment: Carlos Manuel Hyman 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 Alert and oriented. HEENT: Anicteric sclera. Neck: No JVD. No bruits. Normal carotid upstrokes bilaterally. Cardiac: PMI was nondisplaced. No ventricular heave. Regular. Normal S1-S2. No murmurs, rubs, or gallops. Pulmonary: Clear to auscultation bilaterally without wheezes, rales, or rhonchi. Abdomen: Soft, nontender, nondistended, with normoactive bowel sounds. No bruits noted. Extremities: 2+ radial pulses bilaterally. 2+ posterior tibialis pulses bilaterally. No edema or cyanosis. Psychiatric: Affect appears appropriate. Results & Data ([facility]) Vital Signs (Past 12 Hours) Vital Signs Temp Pulse Resp BP Pulse Ox 03/07/21 10:30 36.7 C 80 18 126/72 98 03/06/21 23:23 36.6 C 74 18 178/82 H 97 Laboratory Results Laboratory Results - last 24 hr 03/06/21 03/06/21 03/06/21 17:20 17:20 17:35 WBC 7.09 RBC 4.77 Hgb 14.2 Hct 40.9 MCV 85.7 MCH 29.8 MCHC 34.7 RDW Std Deviation 40.6 RDW Coeff of Marie 12.8 Plt Count 229 MPV 10.8 H Immature Gran % (Auto) 0.1 Neut % (Auto) 58.3 Lymph % (Auto) 30.5 Edmunds % (Auto) 9.2 Eos % (Auto) 1.8 Baso % (Auto) 0.1 Neut # (Auto) 4.13 Lymph # (Auto) 2.16 Edmunds # (Auto) 0.65 H Eos # (Auto) 0.13 Baso # (Auto) 0.01 Immature Gran # (Auto) 0.01 Activ Coag Time Kaolin D-Dimer 580 H* Sodium 139 Potassium 4.0 Chloride 106 Carbon Dioxide 27 Anion Gap 6.0 BUN 16 Creatinine 0.87 Est Cr Clr Drug Dosing 54.0 Est GFR ( Amer) 76.6 Est GFR (Non-Af Amer) 66.1 BUN/Creatinine Ratio 17.9 Glucose 98 Calcium 9.4 Total Bilirubin 0.3 AST 31 ALT 50 Alkaline Phosphatase 85 Troponin I < 0.015 Total Protein 7.8 Albumin 3.8 Globulin 4.0 Albumin/Globulin Ratio 0.9 Lipase 102 Specimen Hemolysis COVID-19 Eval Order SARS-CoV-2 (PCR) 03/06/21 03/06/21 03/07/21 20:33 20:33 05:22 WBC 6.61 RBC 4.64 Hgb 13.4 Hct 39.2 MCV 84.5 MCH 28.9 MCHC 34.2 RDW Std Deviation 40.2 RDW Coeff of Marie 13.2 Plt Count 253 MPV 10.8 H Immature Gran % (Auto) 0.2 Neut % (Auto) 51.2 Lymph % (Auto) 35.7 Edmunds % (Auto) 10.6 Eos % (Auto) 2.1 Baso % (Auto) 0.2 Neut # (Auto) 3.39 Lymph # (Auto) 2.36 Edmunds # (Auto) 0.70 H Eos # (Auto) 0.14 Baso # (Auto) 0.01 Immature Gran # (Auto) 0.01 Activ Coag Time Kaolin D-Dimer Sodium Potassium Chloride Carbon Dioxide Anion Gap BUN Creatinine Est Cr Clr Drug Dosing Est GFR ( Amer) Est GFR (Non-Af Amer) BUN/Creatinine Ratio Glucose Calcium Total Bilirubin AST ALT Alkaline Phosphatase Troponin I Total Protein Albumin Globulin Albumin/Globulin Ratio Lipase Specimen Hemolysis COVID-19 Eval Order Covid19 at [facility] SARS-CoV-2 (PCR) NEGATIVE 03/07/21 03/07/21 03/07/21 05:22 05:22 14:48 WBC RBC Hgb Hct MCV MCH MCHC RDW Std Deviation RDW Coeff of Marie Plt Count MPV Immature Gran % (Auto) Neut % (Auto) Lymph % (Auto) Edmunds % (Auto) Eos % (Auto) Baso % (Auto) Neut # (Auto) Lymph # (Auto) Edmunds # (Auto) Eos # (Auto) Baso # (Auto) Immature Gran # (Auto) Activ Coag Time Kaolin 257 H D-Dimer Sodium 140 Potassium 3.8 Chloride 109 H Carbon Dioxide 28 Anion Gap 3.0 BUN 16 Creatinine 0.98 Est Cr Clr Drug Dosing 47.9 Est GFR ( Amer) 66.3 Est GFR (Non-Af Amer) 57.2 BUN/Creatinine Ratio 16.1 Glucose 114 H Calcium 8.8 Total Bilirubin 0.6 AST 24 ALT 42 Alkaline Phosphatase 77 Troponin I < 0.015 Total Protein 7.0 Albumin 3.2 L Globulin 3.8 Albumin/Globulin Ratio 0.8 L Lipase Specimen Hemolysis COVID-19 Eval Order SARS-CoV-2 (PCR) Diagnostic Findings Stress echo 03/07/2021 reviewed preliminarily as noted above in HPI. ECG 03/06/2021: Sinus rhythm 74 beats per minute. CTA chest 03/06/2021: No PE. No acute process per Radiology. Medications Administered Current Inpatient Medications Acetaminophen (Acetaminophen 325 Mg Tab) 650 mg PO Q4H PRN PRN Reason: pain/fever Stop: 04/05/21 23:22 Al Hydrox/Mg Hydrox/Simethicone (Aluminum/Magnesium Susp 30 Ml Udc) 30 ml PO Q6H PRN PRN Reason: Dyspepsia Stop: 04/05/21 23:22 Albuterol (Albut/Ipratrop 3mg/0.5mg Neb 3 Ml Vial) 3 ml NEB Q6H PRN PRN Reason: Dyspnea Stop: 04/05/21 23:22 Aspirin (Aspirin 81 Mg Ectab) 81 mg PO QAM [facility] Stop: 04/07/21 08:59 Atorvastatin Calcium (Atorvastatin 40 Mg Tab) 80 mg PO QAM [facility] Stop: 04/06/21 15:14 Clopidogrel Bisulfate (Clopidogrel [facility]ulfate 75 Mg Tab) [facility]: 04/07/21 08:59 Enoxaparin Sodium (Enoxaparin Inj 40 Mg/0.4 Ml Syr) 40 mg SQ Q24H [facility] Stop: 04/06/21 08:59 Last Admin: 03/07/21 09:29 Dose: Not Given Documented by: Nitroglycerin (Nitroglycerin Sl 0.4 Mg/Tab Tab) 0.4 mg SL UD PRN PRN Reason: Chest Pain Stop: 04/06/21 11:07 Ondansetron HCl (Ondansetron Inj 2 Mg/Ml 2 Ml Vial) 4 mg IV Q6H PRN PRN Reason: Nausea Stop: 04/05/21 23:22 Polyethylene Glycol (Polyethylene (Miralax) 17 Gm Pack) 17 gm PO DAILY PRN PRN Reason: Constipation Stop: 04/05/21 23:22 PG Care Time/CCT Total # of Minutes Spent Total Time Spent with Patient: Total time spent is greater than 50% in coordination of care (as documented) at patient's floor/unit and/or counseling patient: Coding Level of Care Code 72434 Initial Inpt Care Lvl 3 Diagnoses Exertional angina I20.8 Abnormal stress echo R94.39 HTN (hypertension) I10 Hypertension type: unspecified Dyslipidemia E78.5 (1) HTN (hypertension) Hypertension type: unspecified Qualified Code(s): I10 - Essential (primary) hypertension
[2021-03-07] MEDS: ACETAMINOPHEN 325 MG TAB PO PRN (15:44)
[2021-03-07] MEDS ORDERED: amLODIPine BESYLATE 5 MG TAB PO ONE (15:59)
[2021-03-07] MEDS ORDERED: METOPROLOL TARTRATE 25 MG TAB PO STA (15:59)
--- NOTE | 2021-03-07 16:25 | XCELERA ---
[id number]
[2021-03-07] MEDS ORDERED: Nursing to Pharmacy Communication SCH (16:45)
[2021-03-07] MEDS: ATORVASTATIN 40 MG TAB PO SCH (17:29)
--- NOTE | 2021-03-07 18:59 | Hospitalist Progress Note ---
Date of Service March 07, 2021 Assessment & Plan (1) CAD (coronary artery disease): Plan: - Pt presented with exertional angina; maybe a mixed picture with her GERD symptoms but given her limitations with activity it is concerning for angina as she is normally quite active - Troponins negative x 3 - Stress testing concerning for LAD ischemia and now is S/P PCI with stenting to LAD -- Access through R femoral artery due to R radial spasm - Continue ASA 81 mg daily and Plavix 75 mg x 6-12 months; will add Metoprolol 12.5 mg BID for BP control and heart protection in setting of CAD - Atorvastatin 80 mg daily - Nitro PRN - Cardiology following - discussed with Dr. Roque - plan as written above (2) HTN (hypertension): Plan: - Has had long standing issues with BP. States her PCP was planning for Amlodipine to initiate - Will utilize Metoprolol for BP control in favor of heart protection and BP control and could titrate up as needed; Could consider ACEI as well or add in the future pending BP control (3) Diabetes mellitus: Plan: - A1c 6.7 - States she was started on Metformin - can continue this as outpatient to help reduce further cardiac risk (4) GERD (gastroesophageal reflux disease): Plan: - Can continue her home regimen Plan: Monitor overnight given femoral access site for cath; likely can D/C tomorrow depending on assessment Admission and Anticipated Discharge Date Admission Date: March 07, 2021 Subjective Pt seen pre and post cath. Had no chest pain today. She did have an abnormal stress test and it was stopped due to hypertension. She did undergo heart catheterization and had stent placed in LAD. She is doing well post-cath, a bit tired but no pain. Did have to have femoral access due to R radial spasm. Review of Systems Review of Systems: REVIEW OF SYSTEMS General/Constitutional: Denies fever/chills ENT: sore throat, trouble swallowing Cardiovascular: Denies chest pain, palpitations, edema Respiratory: Denies cough, SOB, wheezing, orthopnea GI: Denies nausea, vomiting, abdominal pain, constipation, diarrhea : Denies dysuria Musculoskeletal: Denies joint/muscle aches Neurologic: Denies dizziness/lightheadedness Physical Exam Physical Exam: PHYSICAL EXAM General Appearance: WDWN in NAD who is A&O x 3 HEENT: Head is normocephalic/atraumatic; Hearing grossly intact; Mucous membranes moist Neck: Supple; Trachea midline; Neg JVD Heart: RRR with no M/G/R Lungs: CTA in all lung mendez bilaterally; Respirations unlabored; Neg accessory muscle use Abdomen: Soft, non-tender, non-distended; Positive BS x 4 quadrants Extremities: Neg cyanosis or edema Neurological: Speech clear; Gross motor/sensory function intact; Neg focal neurologic deficits Psychiatric: Appropriate mood/affect Skin: Normal Color; Warm/Dry Results & Data Results & Data ([facility]) Vital Signs (Past 12 Hours) Vital Signs Temp Pulse Resp BP Pulse Ox Pulse Ox 03/07/21 17:59 66 18 133/77 98 03/07/21 16:52 75 20 131/71 98 03/07/21 16:30 74 18 155/74 H 100 03/07/21 16:10 71 16 133/76 98 03/07/21 15:57 74 20 171/84 H 97 03/07/21 15:15 71 16 186/78 H 98 03/07/21 15:00 36.8 C 73 18 175/84 H 98 03/07/21 11:08 95 03/07/21 10:30 36.7 C 80 18 126/72 98 PG Care Time/CCT Total # of Minutes Spent Total Time Spent with Patient: Total time spent is greater than 50% in coordination of care (as documented) at patient's floor/unit and/or counseling patient: Coding Level of Care Code 42640 Subseq Hosp Care Lvl 3 Diagnoses CAD (coronary artery disease) I25.10 HTN (hypertension) I10 Hypertension type: unspecified Diabetes mellitus E11.9 GERD (gastroesophageal reflux disease) K21.9 (1) HTN (hypertension) Hypertension type: unspecified Qualified Code(s): I10 - Essential (primary) hypertension
[2021-03-07] MEDS ORDERED: MELATONIN 3 MG TAB PO PRN (19:11)
--- NOTE | 2021-03-07 19:35 | Billing Data ---
Date of Service March 07, 2021 Coding Level of Care Code 50281 Initial Inpt Care Lvl 3
--- NOTE | 2021-03-07 19:36 | Billing Data ---
Date of Service March 07, 2021 Coding Level of Care Code 23192 Initial Inpt Care Lvl 3
[2021-03-07] MEDS ORDERED: PANTOprazole 40 MG TAB PO SCH (21:00)
[2021-03-07] MEDS ORDERED: PREMARIN VAG CRM 14 APPLN/30 GM TUBE PV SCH (21:00)
[2021-03-08] MEDS: ACETAMINOPHEN 325 MG TAB PO PRN ×2 (02:57→09:56)
--- NOTE | 2021-03-08 04:46 | Electrocardiogram Report ---
Test Reason : Blood Pressure : / mmHG Vent. Rate : 074 BPM Atrial Rate : 074 BPM P-R Int : 146 ms QRS Dur : 076 ms QT Int : 406 ms P-R-T Axes : 069 038 029 degrees QTc Int : 450 ms Normal sinus rhythm Possible Left atrial enlargement Nonspecific ST abnormality When compared with ECG of 19-NOV-2019 11:23, No significant change was found Confirmed by Rachid Roque ([id number]) on 03/08/2021 4:46:38 AM Referred By: Charles Chen Confirmed By:Rachid Roque
--- NOTE | 2021-03-08 05:31 | Electrocardiogram Report ---
Test Reason : Blood Pressure : / mmHG Vent. Rate : 070 BPM Atrial Rate : 070 BPM P-R Int : 148 ms QRS Dur : 074 ms QT Int : 416 ms P-R-T Axes : 057 030 023 degrees QTc Int : 449 ms Normal sinus rhythm Possible Left atrial enlargement Possible Septal infarct , age undetermined Nonspecific ST abnormality Abnormal ECG When compared with ECG of 06-MAR-2021 17:15, No significant change was found Confirmed by Rachid Roque ([id number]) on 03/08/2021 5:30:27 AM Referred By: Charles Chen Confirmed By:Rachid Roque
[2021-03-08] MEDS: ATORVASTATIN 40 MG TAB PO SCH (07:53)
[2021-03-08 08:19] LABS: Hematocrit (blood only) 42.1 % (37-47); Hemoglobin 14.3 g/dL (12.0-16.0); Mean Corpuscular Hemoglobin 29.2 pg (25-34); Mean Corpuscular Volume 86.1 fL (80-100); Mean Platelet Volume 10.6 fL (7.4-10.4); Platelet Count 253 K/uL (130-400); RDW Coefficient of Variation 12.9 % (11.5-14.5); RDW Standard Deviation 41.2 fL (36.4-46.3); Red Blood Count 4.89 M/uL (4.2-5.4); White Blood Count 7.74 K/uL (4.8-10.8)
[2021-03-08 08:38] LABS: BUN Creatinine Ratio 19.8 (10-20); Calcium 9.2 mg/dl (8.5-10.1); Est GFR (African American) 63.2 ml/min; Est GFR (Non-African American) 54.5 ml/min; Potassium 3.9 mmol/L (3.5-5.1)
[2021-03-08] MEDS: ENOXAPARIN INJ 40 MG/0.4 ML SYR SQ SCH (08:49)
[2021-03-08] MEDS ORDERED: FAMOTIDINE 20 MG TAB PO SCH (09:00)
[2021-03-08] MEDS ORDERED: METOPROLOL TARTRATE 25 MG TAB PO SCH (09:00)
[2021-03-08] MEDS ORDERED: LORATADINE 10 MG TAB PO SCH (09:00)
[2021-03-08] MEDS ORDERED: CLOPIDOGREL BISULFATE 75 MG TAB PO SCH (09:00)
[2021-03-08] MEDS ORDERED: ASPIRIN 81 MG ECTAB PO SCH (09:00)
--- NOTE | 2021-03-08 12:59 | Cardiology Progress Note ---
Date of Service March 08, 2021 Assessment & Plan (1) CAD (coronary artery disease): (2) S/P coronary artery stent placement: (3) Exertional angina: (4) Abnormal stress echo: (5) HTN (hypertension): (6) Dyslipidemia: Plan: ASSESSMENT/PLAN: 1. CAD s/p LAD PCI: No further angina. Continue aspirin 81 mg daily indefinitely. Continue Plavix 75 mg for at least 6 months, preferably a year. Anti-platelet therapy was discussed with her. Continue beta-bia and high- intensity statin therapy. Recommend nitroglycerin p.r.n. on discharge. We discussed cardiac rehab and she will think it over. 2. Exertional angina: No further angina following PCI of her LAD. 3. Hypertension: Blood pressure better controlled today and currently normal. Continue beta-bia. 4. Dyslipidemia: Continue high-intensity statin therapy on discharge. 5. Disposition: Okay for discharge from a Cardiology perspective. Recommend follow-up in the office in approximately 1 week. Patient care communicated with the primary hospitalist service, Dipti Maza. Admission and Anticipated Discharge Date Admission Date: March 07, 2021 Subjective She denied angina, shortness of breath, syncope, near-syncope, palpitations, edema, or bleeding. She was able to ambulate in the hallway without angina or dyspnea. She has had some chest and back discomfort, different than her presenting angina. This occurred after eating and laying supine in bed. She was completely chest pain-free during our visit today. She was alone in her hospital room. Review of systems: As above. Physical Exam Physical Exam: Gen.: No acute distress. Alert and oriented. HEENT: Anicteric sclera. Neck: No JVD. Cardiac: No ventricular heave. Regular. Normal S1-S2. No murmurs, rubs, or gallops. Pulmonary: Clear to auscultation bilaterally without wheezes, rales, or rhonchi. Abdomen: Soft, nontender, nondistended, with normoactive bowel sounds. No bruits noted. Extremities: 2+ radial pulses bilaterally. Right radial cath site is clean, dry, and intact without erythema or discharge. Right femoral catheterization site was without hematoma. 2+ right femoral pulse. 2+ posterior tibialis pulses bilaterally. No edema or cyanosis. Psychiatric: Affect appears appropriate. Results & Data ([facility]) Vital Signs (Past 12 Hours) Vital Signs Temp Pulse Pulse Resp BP Pulse Ox 03/08/21 10:45 36.5 C 67 16 115/57 L 98 03/08/21 08:00 64 03/08/21 06:37 36.6 C 69 17 116/72 97 03/08/21 03:21 36.7 C 57 L 17 144/75 H 97 Laboratory Results Laboratory Results - last 24 hr 03/07/21 03/08/21 03/08/21 14:48 08:06 08:06 WBC 7.74 RBC 4.89 Hgb 14.3 Hct 42.1 MCV 86.1 MCH 29.2 MCHC 34.0 RDW Std Deviation 41.2 RDW Coeff of Marie 12.9 Plt Count 253 MPV 10.6 H Activ Coag Time Kaolin 257 H Sodium 138 Potassium 3.9 Chloride 109 H Carbon Dioxide 22 Anion Gap 7.0 BUN 20 H Creatinine 1.02 Est Cr Clr Drug Dosing 46.0 Est GFR ( Amer) 63.2 Est GFR (Non-Af Amer) 54.5 BUN/Creatinine Ratio 19.8 Glucose 195 H Calcium 9.2 Diagnostic Findings Telemetry personally reviewed: No arrhythmia. Medications Administered Current Inpatient Medications Acetaminophen (Acetaminophen 325 Mg Tab) 650 mg PO Q4H PRN PRN Reason: pain/fever Stop: 04/05/21 23:22 Last Admin: 03/08/21 09:56 Dose: 650 mg Documented by: Al Hydrox/Mg Hydrox/Simethicone (Aluminum/Magnesium Susp 30 Ml Udc) 30 ml PO Q6H PRN PRN Reason: Dyspepsia Stop: 04/05/21 23:22 Albuterol (Albut/Ipratrop 3mg/0.5mg Neb 3 Ml Vial) 3 ml NEB Q6H PRN PRN Reason: Dyspnea Stop: 04/05/21 23:22 Aspirin (Aspirin 81 Mg Ectab) 81 mg PO [facility] Stop: 04/07/21 08:59 Last Admin: 03/08/21 07:53 Dose: 81 mg Documented by: Atorvastatin Calcium (Atorvastatin 40 Mg Tab) 80 mg PO [facility] Stop: 04/06/21 15:14 Last Admin: 03/08/21 07:53 Dose: 80 mg Documented by: Clopidogrel Bisulfate (Clopidogrel Bisulfate 75 Mg Tab) 75 mg PO [facility] Stop: 04/07/21 08:59 Last Admin: 03/08/21 07:53 Dose: 75 mg Documented by: Enoxaparin Sodium (Enoxaparin Inj 40 Mg/0.4 Ml Syr) 40 mg SQ Q24H [facility] Stop: 04/06/21 08:59 Last Admin: 03/08/21 08:49 Dose: 40 mg Documented by: Estrogens Conjugated (Premarin Vag Crm 14 Appln/30 Gm Tube) 1 appln PV [facility] Stop: 04/06/21 20:59 Last Admin: 03/07/21 20:00 Dose: Not Given Documented by: Famotidine (Famotidine 20 Mg Tab) 20 mg PO [facility] Stop: 04/07/21 08:59 Last Admin: 03/08/21 07:53 Dose: 20 mg Documented by: Loratadine (Loratadine 10 Mg Tab) 10 mg PO [facility] Stop: 04/07/21 08:59 Last Admin: 03/08/21 07:53 Dose: 10 mg Documented by: Melatonin (Melatonin 3 Mg Tab) 6 mg PO HS PRN PRN Reason: Sleep Stop: 04/06/21 19:10 Metoprolol Tartrate (Metoprolol Tartrate 25 Mg Tab) 12.5 mg PO BID [facility] Stop: 04/07/21 08:59 Last Admin: 03/08/21 07:54 Dose: 12.5 mg Documented by: Nitroglycerin (Nitroglycerin Sl 0.4 Mg/Tab Tab) 0.4 mg SL UD PRN PRN Reason: Chest Pain Stop: 04/06/21 11:07 Ondansetron HCl (Ondansetron Inj 2 Mg/Ml 2 Ml Vial) 4 mg IV Q6H PRN PRN Reason: Nausea Stop: 04/05/21 23:22 Pantoprazole Sodium (Pantoprazole 40 Mg Tab) 40 mg PO [facility]; Protocol Stop: 04/06/21 20:59 Last Admin: 03/07/21 19:59 Dose: 40 mg Documented by: Polyethylene Glycol (Polyethylene (Miralax) 17 Gm Pack) 17 gm PO DAILY PRN PRN Reason: Constipation Stop: 04/05/21 23:22 PG Care Time/CCT Total # of Minutes Spent Total Time Spent with Patient: Total time spent is greater than 50% in coordination of care (as documented) at patient's floor/unit and/or counseling patient: Coding Level of Care Code 52385 Subseq Hosp Care Lvl 3 Diagnoses Exertional angina I20.8 Abnormal stress echo R94.39 HTN (hypertension) I10 Hypertension type: unspecified Dyslipidemia E78.5 CAD (coronary artery disease) I25.10 S/P coronary artery stent placement Z95.5 (1) HTN (hypertension) Hypertension type: unspecified Qualified Code(s): I10 - Essential (primary) hypertension
--- NOTE | 2021-03-08 15:06 | Discharge Summary ---
Date of Service March 08, 2021 Admission HPI Per Admitting Provider Aleja Avina is a 75 y/o female w/ PMHx of SIBO, GERD, hiatal hernia, allergic rhinitis, Mckeon's esophagus, IBS, HTN, DM, asthma, seasonal allergies who presents w/ a month of upper chest burning sensation. It seems to be brought on w/ eating and w/ exertion. There is a pressure sensation that builds up from her abdomen that goes up her chest. She feels that her symptoms are not consistent with dyspnea. She was sent to ED by PCP today for elevated D dimer and concerning ecg. No prior cardiac history. She has been fairly active and going to gym+exercise classes; denies decrease in activity level / metabolic equivalents. She feels that her lungs have burning sensation similar when she hiked up a steep mountain in past. The chest pressure sensation is relieved w/ belching. The chest burning is worse after eating. No weird taste in mouth. Severity of burning sensation unchanged past month. The belching only occurs after eating or after the chest burning sensation. Denies diaphoresis, fevers, chills, wt loss. No melena or hematemesis, hemoptysis, or bloody stool. Never smoker. No etoh or illicit substances. No risk factors for vte other than topical estrogen. Normal home BPs 140s-150s. Denies regular/prolonged nsaid use.Immunized against influenza and covid (Pfizer x2) ED course: labetalol 10 mg IV x 1 for BP of 202/77.CTA neg for PE.CXR w/o acute findings. Ecg NSR w/o ST-T changes. Principal Diagnosis Coronary Artery Disease with Stent Placement Discharge Exam PHYSICAL EXAM General Appearance: WDWN in NAD who is A&O x 3 HEENT: Head is normocephalic/atraumatic; Hearing grossly intact; Mucous membranes moist Neck: Supple; Trachea midline; Neg JVD Heart: RRR with no M/G/R Lungs: CTA in all lung mendez bilaterally; Respirations unlabored; Neg accessory muscle use Abdomen: Soft, non-tender, non-distended; Positive BS x 4 quadrants Extremities: Neg cyanosis or edema; R radial and R femoral puncture sites with dressings applied. No signs of bleeding Neurological: Speech clear; Gross motor/sensory function intact; Neg focal neurologic deficits Psychiatric: Appropriate mood/affect Skin: Normal Color; Warm/Dry Discharge Data Allergies Allergy/AdvReac Type Severity Reaction Status Date / Time codeine Allergy Severe TROUBLE Verified 03/06/21 19:19 BREATHING Consultations 03/06/21 20:20 ED Decision to Admit Stat 03/07/21 11:07 Consult Cardiology Routine 03/07/21 15:06 Consult Cardiac Rehabilitation Routine Procedures Performed Operation Date: 03/07/21 14:00 Actual Procedures p Drug Eluting Stent SGl Vessel - Puma Wise MD s Cineradiography w/Routine Exam - Rachid Roque MD s Ultrasound Vascular Access - Rachid Roque MD s Cath, Left with Cors and Vent - Rachid Roque MD Ordered Studies Chest X-Ray 03/06/21 16:40 XR chest 1V portable CLINICAL HISTORY: Atypical chest pain. COMPARISON STUDY: Chest CT November 19, 2019. Chest radiograph November 18, 2019. FINDINGS: Lung volumes are normal. Lungs are clear. There is no pneumothorax or pleural effusion. Cardiac size is normal. Mediastinal contours are normal. There is no evidence for pulmonary edema. IMPRESSION: No acute cardiopulmonary findings. ACT 112: Negative or not required by law. Electronically signed by: Roshan Rashid M.D. 03/06/2021 5:19 PM Chest CTA 03/06/21 18:10 CT ANGIOGRAPHY OF THE CHEST, PULMONARY EMBOLUS PROTOCOL CLINICAL HISTORY: Shortness of breath, chest pain and elevated d-dimer. Evaluate for pulmonary embolus. COMPARISON STUDY: Chest CT November 19, 2019. Chest radiograph performed earlier today. TECHNIQUE: Following IV administration of 120 mL of Optiray, helical axial images of the chest were obtained utilizing the pulmonary embolus protocol. Maximal intensity projections and sagittal and coronal reformats were viewed on an independent 3D workstation. IV contrast was administered without complication. Automated exposure control was utilized for the study. A dose lowering technique was utilized adhering to the principles of ALARA. CT DOSE: 292.74 mGy.cm FINDINGS: No pulmonary emboli are identified. There is no thoracic aortic dissection. The size of the heart is normal. No enlarged axillary, mediastinal or hilar lymph nodes are present. Central airways are patent. No consolidation to suggest pneumonia. A 3 mm subpleural right lower lobe nodule on image 73 of [address] of November 19, 2019. This is benign. There are no new nodules. There is no pneumothorax or pleural effusion. The central airways are patent. A few calcified granulomas are present. No acute fracture or suspicious lesion is identified within visualized portions of the bony thorax. An 8 mm right hepatic lobe cyst is unchanged. IMPRESSION: 1. No pulmonary emboli identified. 2. No acute process within the chest. ACT 112: Negative or not required by law. Electronically signed by: Roshan Rashid M.D. 03/06/2021 7:11 PM Hospital Course (1) CAD (coronary artery disease): - Pt presented with exertional angina; maybe a mixed picture with her GERD symptoms but given her limitations with activity it is concerning for angina as she is normally quite active - Troponins negative x 3 - Stress testing concerning for LAD ischemia and now is S/P PCI with stenting to LAD on 03/07 -- Access through R femoral artery due to R radial artery spasm and inability to fully thread cath - Continue ASA 81 mg daily and add Plavix 75 mg x 6-12 months (preferably 12 months or longer); added Toprol XL 25 mg daily for BP control and heart protection in setting of CAD - Atorvastatin 80 mg daily - Nitro PRN should she develop future angina - Activity restrictions given post-cath - Cardiology followed - discussed with Dr. Roque - plan as written above -- He plans to follow-up in one week in his office and his office to arrange follow-up (2) HTN (hypertension): - Has had long standing issues with BP. States her PCP was planning for Amlodipine to initiate - Will utilize Metoprolol for BP control in favor of heart protection and BP con trol and could titrate up as needed; Could consider ACEI as well or add in the future pending BP control (3) Diabetes mellitus: - A1c 6.7 - States she was considering restarting Metformin. - She also feels she could work on her diet some more which could ultimately improve her A1c (4) GERD (gastroesophageal reflux disease): - Changed omeprazole to pantoprazole due to effects on Plavix efficacy - Cardiology follow-up next week Total Time Total Time Spent Total Time Spent (In Minutes): Spent greater than 30 minutes preparing patient for discharge. This includes discussion with patient/family, assessment, intervention, medication reconciliation, and coordination of care. Discharge Plan Discharge Items Patient Disposition: Home - Self-Care Reason For Visit: blood clot in lungs, sent by dr malave Discharge Diagnosis: Coronary Artery Disease with Stent Placement Activity: Per Instructions section Non-emergency contact: Primary Care Provider and Investor Call non-emergency contact if: you have any medication questions, your symptoms worsen and you have a fever Follow-up/Referrals: Charles Malave MD [Primary Care Provider] - 03/29/21 3:45 pm Diet: Carb Consistent or DM2 and Heart Healthy Addtl Attending Provider Instructions: Coronary Artery Disease: - You were admitted due to chest pain that was consistent with exertional angina or chest pain with exertion. - Thankfully, your cardiac markers were normal on admission. This is a blood test to see if there was any damage to the heart caused by lack of blood flow. Again these were normal. - However, your stress test was abnormal and suggesting that with exertion your heart was not able to get good blood flow. - Cardiac catheterization showed that you had blockages requiring a stent being placed into your LAD vessel of the heart. - Please follow the activity recommendations/restrictions below. - You will continue your aspirin 81 mg daily and will add Plavix 75 mg daily for at least 6 months but it is recommended up to 1 year post-stent if able to tolerate it - You will also be started on a cholesterol medication. This is called Atorvastatin. If you develop muscle aches please call your talent sourcer or family doctor. Some people do have muscle aches from this medication - We will send you with nitroglycerin. This is meant only if needed for chest pain. Please see the attached information in this regards. Again this is only to be taken if you get chest pain and you may not really need it - Dr. Roque is with the [facility] Cardiology team and would like to see you in about one week and his office will arrange and call you High Blood Pressure: - We have started Metoprolol 25 mg daily. This is a blood pressure medication in a class called beta blockers. It also has benefits to allow the heart to not work as hard to do what it needs to do but also controls blood pressure. Heart Burn: - You had Omeprazole on your medication list. This medication can reduce the effectiveness of Plavix so the best option is to change to a medication that is still in that medication class but is called pantoprazole which does not interact. Diabetes: - Your A1c is 6.7. This is a blood test that gives us an idea of how your sugars average over a 3 month period. We like to see this number around 6.5. - Continue to discuss with your doctor on the best treatment approach. A lot of times, this can be managed by diet modification alone. Being mindful of your carbohydrate intake can drastically improve your sugars - Sugar control is very important in regards to heart health. Diabetes does increase your risk of heart disease over time. - A low dose of Metformin may be able to get adequate control without causing low sugars like it did in the past. ACTIVITY RECOMMENDATIONS: It is common to feel weak and fatigue for a few days. * Do not drive or operate any motorized equipment for the next three days. * Limit stair usage (2 or 3 trips a day only) for the next three days. * Do not lift anything heavier than 10 pounds for the next three days. * Do not engage in vigorous exercise or any sports for the next five days. * You may shower the day after your procedure, but do not immerse the area for three days. Cleanse the site gently with soap and water. SPECIAL CARE INSTRUCTIONS: * You may replace the pressure dressing or band-aid the morning after the procedure. * After your procedure, it is normal to have a small bruise or small lump at the site. Examine your site daily for any change in the bruise or lump, redness, swelling, drainage or numbness. Notify your doctor if any change. BLEEDING: * If there is a small amount of bleeding at the site, lie down and apply firm pressure with a clean cloth for ten minutes. When the bleeding stops, lie quietly keeping the procedure limb straight for six hours. Notify your doctor as soon as possible. * If the bleeding does not stop after ten minutes or if there is a large amount of bleeding or spurting, call 911 immediately. Continue to lie down and hold firm pressure until help arrives. SKIN IRRITATION: * You may experience some redness and/or swelling in the area where radiation was administered. If any skin irritation occurs, please contact your family physician. FOLLOW UP VISIT: 1. Follow up in Dr. Roque's office in approx 1 week. 2. Keep any scheduled doctor appointments. Pending Studies at Discharge: No Stand-Alone Forms: My [facility], Smoking Cessation Medications and DC Order Prescriptions: New clopidogrel 75 mg Tablet 75 mg PO QAM 30 Days Qty: 30 RF: 0 atorvastatin 80 mg tablet 80 mg PO DAILY 30 Days Qty: 30 RF: 0 metoprolol succinate [Toprol XL] 25 mg tablet extended release 24 hr 25 mg PO DAILY 30 Days Qty: 30 RF: 0 pantoprazole 40 mg Tablet,Delayed Release (Dr/Ec) 40 mg PO HS 30 Days Qty: 30 RF: 0 nitroglycerin 0.4 mg tablet, sublingual 0.4 mg sublingual Q5M PRN (Reason: chest pain) Qty: 5 RF: 0 Continued conjugated estrogens 0.625 mg/gram cream 0.625 mg PV HS RF: 0 famotidine [Acid Card Cutter (famotidine)] 20 mg tablet 20 mg PO QAM RF: 0 albuterol sulfate 90 mcg/actuation Hfa Aerosol Inhaler 2 puff INHALATION BID PRN (Reason: sob) RF: 0 aspirin 81 mg Tablet,Delayed Release (Dr/Ec) 81 mg PO QDD RF: 0 cholecalciferol (vitamin D3) [Vitamin D3] 1,000 unit Capsule 1,000 unit PO QDD RF: 0 docusate sodium [Stool Softener] 100 mg Capsule 1 tab PO QDD RF: 0 loratadine [Claritin] 10 mg Tablet 10 mg PO QAM RF: 0 Systane Balance 0.6 % Drops 1 - 2 drp OPHTHALMIC (EYE) BID RF: 0 sodium chloride [Nasal Moisturizing] 0.65 % Aerosol,[place] 1 - 2 spray INTRANASAL DAILY PRN (Reason: dryness) RF: 0 trolamine salicylate [Arthricream] 10 % Cream 1 applic TOPICAL BID PRN (Reason: Pain) RF: 0 vitamin K2 40 mcg tablet 100 mcg PO QDD RF: 0 acetaminophen [Tylenol Arthritis Pain] 650 mg Tablet Extended Release 650 mg PO Q12H PRN (Reason: Pain) RF: 0 Culturelle 10 billion cell Capsule 1 cap PO QDD RF: 0 melatonin 5 mg Tablet 5 mg PO HS PRN (Reason: Sleep) RF: 0 cyanocobalamin (vitamin B-12) [Vitamin B-12] 1,000 mcg Tablet 0 mcg PO DAILY RF: 0 Discontinued omeprazole 40 mg capsule,delayed release(DR/EC) 40 mg PO HS RF: 0 Discharge Orders: Discharge Order (Routine); Ordered 03/08/21 Ordered By: Dipti Carrillo/Other Patient Handouts: Coronary Stents, Nitroglycerin Fast Acting Dc Admission Data Admit Date/Time: 03/07/21 11:39 Attending Provider: Bro Hernandez Admit Provider: Hima Kapoor Primary Care Provider: Charles Malave Other Providers: Houston Das ; Rachid Roque. Other Interventions: Discharge Summary Assessment (RN) Last Done: 03/08/21 14:50 Coding Level of Care Code D/C DAY MANAGEMENT >30 MINS Diagnoses CAD (coronary artery disease) I25.10 HTN (hypertension) I10 Hypertension type: unspecified Diabetes mellitus E11.9 GERD (gastroesophageal reflux disease) K21.9
--- NOTE | 2021-03-16 09:30 | Coding Query ---
CODING QUERY To promote full compliance with coding requirements relating to patient care, provider participation is requested in all cases of hospital coder uncertainty. Please assist us with the question(s) below: Coding Question(s): Angina is documented in the record. The Cardiology Consultation documents, "Exertional angina: Symptoms are consistent with crescendo angina" and that would code to unstable angina, then the Cardiac Catheterization with LHC and angiography documents stable angina, and the Cardiac Catheterization with MIGDALIA documents Unstable Angina. Please Specify below in your clinical opinion, due to conflicting documentation. ( x ) Unstable or Crescendo Angina ( ) Stable Angina ( ) Other Angina: Please Specify Physician's Response(s): Thank you Nisha Babin Principal Diagnosis: "that condition established after study, to be chiefly responsible for occasioning the admission of the patient to the hospital for care." Co-Existing Principal Diagnosis: "when two or more diagnoses equally meet the criteria for principal diagnosis as determined by the circumstances of admission, diagnostic work up, and/or therapy provided, and the Alphabetic Index, Tabular List, or another coding guideline does not provide sequencing direction, any one of the diagnoses may be sequenced first." "When the physician has documented what appears to be a current diagnosis in the body of the record, but has not included the diagnosis in the final diagnostic statement, the physician should be asked whether the diagnosis should be added." (Source Coding [facility] 2 QTR90. p3-4) RICH
== END 2021-03-08 15:20 | disposition home or self-care (01) | DRG 247 ==
LOC: EDINP 16:03 → ED 16:03 → SUATTDRO 22:13 → EDINP 23:34 → 2S 03-07 15:20

== ENCOUNTER 2021-10-15 12:20 | Observation (INO) ==
[2021-10-15] MEDS ORDERED: NITROGLYCERIN 2% OINTMENT 30GM TUBE EXT STA (12:41)
--- NOTE | 2021-10-15 12:52 | Emergency Department Note ---
Impression & Plan Chest pain, Hypertension ED Provider Note NAME: NICOLAS HEAD AGE: 76 SEX: F : 1945 ARRIVES VIA: Walk-In INFORMANT: Patient ED PROVIDER(S): Daron aRm DO CHIEF COMPLAINT: chest pressure HPI: Patient is a 76-year-old female with a past medical history of CAD status post stent placement this past February, hypertension, hyperlipidemia who presents the ER for chest pressure which has been going on since earlier in September. Describes as a tightness. Does go to scapula. Admits to mild shortness of breath. No arm or jaw pain. No dysuria urgency or frequency. No other exacerbating or remitting factors. Notes it has been becoming longer in duration and worse. Pain is currently a 0 out of 10. ROS: See above HPI for pertinent positives & negatives. A total of 10 systems reviewed and were otherwise negative. PAST MEDICAL HISTORY:See Below PAST SURGICAL HISTORY:See Below FAMILY HISTORY:See Below SOCIAL HISTORY:See Below HOME MEDICATIONS:See Below ALLERGIES:See Below VITALS:See Below PHYSICAL EXAMINATION: GENERAL: Sitting up in bed, alert, well appearing, well nourished, no distress, non-toxic EYE EXAM: normal conjunctiva. OROPHARYNX: no exudate, no erythema, lips, buccal mucosa, and tongue normal and mucous membranes are moist NECK: supple, no nuchal rigidity, no adenopathy, non-tender LUNGS: Clear to auscultation. Normal chest wall mechanics HEART: no murmurs, S1 normal and S2 normal ABDOMEN: abdomen soft, non-tender, normo-active bowel sounds, no masses, no rebound or guarding. UPPER EXTREMITIES: upper extremities are grossly normal. LOWER EXTREMITIES: No pitting edema. Calves equal bilateral NEURO EXAM: Normal sensorium, cranial nerves II-XII grossly intact, normal speech, no gross weakness of arms, no gross weakness of legs. MEDICAL DECISION MAKING: Patient is a 76-year-old female who presents ER for the above-stated complaint of chest pressure. Pain is currently 0 out of 10. She is hypertensive with systolics in the 200s. History of CAD admits that this feels similar. Last stent was in February. IV was established blood was obtained. Labs show no significant leukocytosis or anemia. BMP along with LFTs bilirubin and troponin was negative. Lipase was unremarkable. COVID was negative. She took aspirin prior to arrival. Chest x-ray was clean. EKG was nondiagnostic. She was placed on Nitropaste due to the elevated blood pressures of 180s. This trended down to 150s. She was updated bedside discussed with Corine Hussein for further evaluation. Patient resting comfortably in the ER without any chest pain. Triage Nursing notes reviewed. Limited review of prior medical records performed Vital Signs: reviewed and remarkable for HTN Differential diagnosis: Differential diagnoses includes but is not limited to acute coronary syndrome, myocardial infarction, pericarditis, pulmonary embolus, aortic dissection, pne umonia, pneumothorax, musculoskeletal, shingles, esophageal. ER treatment provided: See below Diagnostics interpreted by me: ECG:normal sinus rhythm 79 normal axis no PVS OTC 438 Cardiac Monitoring: An order was placed for continuous cardiac monitoring. The monitor shows a rate of 80 with sinus rhythm. Laboratory studies: As stated above and show below. Imaging studies: Portable AP upright 1 view of the chest was unremarkable Consultation(s): Discussed with hospitalist for further evaluation Procedures: none Critical Care: None Past Med/Surg History Medical History Acute severe vertigo Allergic rhinitis Asthma inhaler prn Mckeon's esophagus determined by endoscopy CAD (coronary artery disease) Chronic back pain Chronic pelvic pain in female Diabetes mellitus Dyslipidemia GERD (gastroesophageal reflux disease) Hiatal hernia HTN (hypertension) Irritable bowel syndrome with diarrhea Lower esophageal ring Occlusion of left vertebral artery Osteoarthritis Small intestinal bacterial overgrowth Urgency incontinence Surgical History History of colonoscopy History of dilatation and curettage x2 History of esophagogastroduodenoscopy (EGD) (04/2016) History of oophorectomy, unilateral History of root canal procedure History of total abdominal hysterectomy and additional unilateral oophorectomy History of wisdom tooth extraction S/P coronary artery stent placement Family History Father , age 73 Family history of diabetes mellitus Myocardial infarction Mother , 46 Scleroderma Son Heart disease cardiomyopathy Stroke Family history of diabetes mellitus Sister Ovarian cancer Family history of diabetes mellitus Brother Family history of diabetes mellitus Other No family history of adverse response to anesthesia Social History Smoking Status: Never smoker Second Hand Exposure: Yes (father smoked); Hx Alcohol Use: No Hx Substance Use: No Preferred Language: [place] Communication Ability: Effective [employer] Account Assistant Required: No Beliefs That Will Affect Care: None marital status: Current Living Situation: Spouse Current Living Situation Comment: Carlos Manuel Hyman current occupational status: retired 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 Feels Safe at Home: Yes Assistive Devices: None Allergies Allergies Allergy/AdvReac Type Severity Reaction Status Date / Time codeine Allergy Severe TROUBLE Verified 10/15/21 12:56 BREATHING Home Meds Home Medications Medication Instructions Recorded Confirmed albuterol sulfate 90 mcg/actuation 2 puff INHALATION BID PRN 05/23/18 10/15/21 aerosol inhaler aspirin 81 mg tablet,delayed 81 mg PO QAM 05/23/18 10/15/21 release cholecalciferol (vitamin D3) 25 5,000 unit PO QPM 05/23/18 10/15/21 mcg (1,000 unit) capsule (Vitamin D3) docusate sodium 100 mg capsule 1 tab PO BID 05/23/18 10/15/21 (Stool Softener) loratadine 10 mg tablet (Claritin) 10 mg PO QAM PRN 05/23/18 10/15/21 propylene glycol 0.6 % eye drops 1 - 2 drp OPHTHALMIC (EYE) BID 05/23/18 10/15/21 (Systane Balance) sodium chloride 0.65 % nasal spray 1 - 2 spray INTRANASAL DAILY PRN 05/23/18 aerosol (Nasal Moisturizing) conjugated estrogens 0.625 mg/gram 0.625 mg PV 2XWK gm 01/20/19 10/15/21 vaginal cream trolamine salicylate 10 % topical 1 applic TOPICAL BID PRN 03/23/19 10/15/21 cream (Arthricream) vitamin K2 40 mcg tablet 100 mcg PO QAM tab 04/21/19 10/15/21 cyanocobalamin (vitamin B-12) 1,000 mcg PO DAILY 03/06/21 10/15/21 1,000 mcg tablet (Vitamin B-12) acetaminophen 325 mg capsule 325 mg PO QID PRN 07/17/21 10/15/21 (Tylenol) ascorbate calcium (vitamin C) 500 500 mg PO BID 07/17/21 10/15/21 mg tablet glutamine 500 mg capsule 500 mg PO DAILY 07/17/21 10/15/21 simethicone 180 mg capsule 180 mg PO BID PRN 07/17/21 10/15/21 (Phazyme) coenzyme Q10 100 mg capsule 200 mg PO BID cap 09/13/21 10/15/21 (CoQ-10) zinc gluconate 30 mg tablet 30 mg PO DAILY 09/13/21 10/15/21 famotidine 40 mg tablet 40 mg PO HS 10/13/21 10/15/21 rosuvastatin 10 mg tablet (Crestor) 10 mg PO HS 10/15/21 10/15/21 Previous Rx's Medication Instructions Recorded clopidogrel 75 mg tablet 75 mg PO QAM #90 tab 03/13/21 metoprolol succinate 25 mg 25 mg PO DAILY #90 tab 03/13/21 tablet,extended release 24 hr (Toprol XL) nitroglycerin 0.4 mg sublingual 0.4 mg SUBLINGUAL Q5M PRN #25 tab 05/22/21 tablet pantoprazole 40 mg tablet,delayed 40 mg PO BID #60 tab 10/13/21 release Results & Data (ED) Vital Signs Vital Signs - 24 hr 10/15/21 12:25 10/15/21 12:35 10/15/21 12:38 Temperature 36.7 C Temperature Source Oral Pulse Rate 80 81 78 Pulse Rate [Apical] Pulse Rate from SpO2 Sensor 78 Respiratory Rate 18 18 21 Blood Pressure 209/86 H 186/132 H Blood Pressure [Left Arm] Blood Pressure Mean 127 150 Blood Pressure Mean [Left Arm] Pulse Oximetry 99 98 Oxygen Delivery Method Room Air Room Air Room Air Sepsis Recent Fever Within 48 Hours No Sepsis New/Unexplained Change in Mental Status No Sepsis Action Taken by Nursing No Action Required 10/15/21 12:40 10/15/21 12:50 10/15/21 13:03 Temperature Temperature Source Pulse Rate 74 76 Pulse Rate [Apical] Pulse Rate from SpO2 Sensor 74 75 Respiratory Rate 22 27 H Blood Pressure Blood Pressure [Left Arm] Blood Pressure Mean Blood Pressure Mean [Left Arm] Pulse Oximetry 99 98 Oxygen Delivery Method Room Air Room Air Room Air Sepsis Recent Fever Within 48 Hours Sepsis New/Unexplained Change in Mental Status Sepsis Action Taken by Nursing 10/15/21 13:10 10/15/21 13:17 10/15/21 13:20 Temperature Temperature Source Pulse Rate 67 68 75 Pulse Rate [Apical] Pulse Rate from SpO2 Sensor 68 74 Respiratory Rate 18 14 18 Blood Pressure 149/63 H Blood Pressure [Left Arm] Blood Pressure Mean 91 Blood Pressure Mean [Left Arm] Pulse Oximetry 99 95 Oxygen Delivery Method Room Air Room Air Room Air Sepsis Recent Fever Within 48 Hours Sepsis New/Unexplained Change in Mental Status Sepsis Action Taken by Nursing 10/15/21 13:30 10/15/21 13:40 10/15/21 13:50 Temperature Temperature Source Pulse Rate 71 70 75 Pulse Rate [Apical] Pulse Rate from SpO2 Sensor 71 70 73 Respiratory Rate 13 16 22 Blood Pressure 158/80 H Blood Pressure [Left Arm] Blood Pressure Mean 106 Blood Pressure Mean [Left Arm] Pulse Oximetry 97 98 98 Oxygen Delivery Method Room Air Room Air Room Air Sepsis Recent Fever Within 48 Hours Sepsis New/Unexplained Change in Mental Status Sepsis Action Taken by Nursing 10/15/21 14:57 10/15/21 16:00 Temperature Temperature Source Pulse Rate Pulse Rate [Apical] 76 73 Pulse Rate from SpO2 Sensor Respiratory Rate 18 18 Blood Pressure Blood Pressure [Left Arm] 161/76 H 161/90 H Blood Pressure Mean Blood Pressure Mean [Left Arm] 104 113 Pulse Oximetry 96 97 Oxygen Delivery Method Room Air Room Air Sepsis Recent Fever Within 48 Hours Sepsis New/Unexplained Change in Mental Status Sepsis Action Taken by Nursing Laboratory Data Result diagrams: 10/15/21 12:35 10/15/21 12:35 Lab Results 10/15/21 10/15/21 10/15/21 Range/Units 12:35 12:35 12:50 WBC 7.41 (4.8-10.8) K/uL RBC 4.82 (4.2-5.4) M/uL Hgb 13.7 (12.0-16.0) g/dL Hct 41.4 (37-47) % MCV 85.9 (80-100) fL MCH 28.4 (25-34) pg MCHC 33.1 (32-36) g/dL RDW Std Deviation 38.9 (36.4-46.3) fL RDW Coeff of Marie 12.4 (11.5-14.5) % Plt Count 230 (130-400) K/uL MPV 10.7 H (7.4-10.4) fL Immature Gran % (Auto) 0.0 % Neut % (Auto) 70.0 % Lymph % (Auto) 19.4 % [place] % (Auto) 8.5 % Eos % (Auto) 2.0 % Baso % (Auto) 0.1 % Neut # (Auto) 5.18 (1.4-6.5) K/uL Lymph # (Auto) 1.44 (1.2-3.4) K/uL [place] # (Auto) 0.63 H (0.11-0.59) K/uL Eos # (Auto) 0.15 (0-0.5) K/uL Baso # (Auto) 0.01 (0-0.2) K/uL Immature Gran # (Auto) 0.00 (0.00-0.02) K/uL Sodium 139 (136-145) mmol/L Potassium 3.9 (3.5-5.1) mmol/L Chloride 105 (98-107) mmol/L Carbon Dioxide 29 (21-32) mmol/L Anion Gap 5 (3-11) BUN 18 (6-23) mg/dl Creatinine 0.94 (0.6-1.2) mg/dl Est Cr Clr Drug Dosing 50.8 ml/min Est GFR ( Amer) 69.3 ml/min Est GFR (Non-Af Amer) 59.8 ml/min BUN/Creatinine Ratio 19.1 (10-20) Glucose 164 H (70-99(Fasting)) mg/dl Calcium 9.3 (8.5-10.1) mg/dl Total Bilirubin 0.5 (0.2-1.0) mg/dl AST 19 (13-39) U/L ALT 16 (7-52) U/L Alkaline Phosphatase 71 (34-104) U/L Troponin I High Sens 3.5 (0-14) pg/ml Total Protein 7.4 (6.0-8.3) gm/dl Albumin 4.3 (3.4-5.0) gm/dl Globulin 3.1 (2.5-4.0) gm/dl Albumin/Globulin Ratio 1.4 (0.9-2) Lipase 22 (11-82) U/L SARS-CoV-2, RNA, NAAT NEGATIVE (NEGATIVE) Administered Medications Discontinued Medications Nitroglycerin (Nitroglycerin 2% Ointment 30gm Tube) 1 inch EXT NOW STA Stop: 10/15/21 12:42 Last Admin: 10/15/21 12:49 Dose: 1 inch Documented by: [id number] Imaging Data Radiologist's Impression: Chest X-Ray 10/15/21 12:41 SINGLE VIEW CHEST CLINICAL HISTORY: Atypical chest pain FINDINGS: An AP, portable, upright chest radiograph is compared to chest x-ray and chest CT dated 03/06/2021. The cardiomediastinal silhouette is unremarkable noting atherosclerotic calcification of the thoracic aorta. There are scattered calcified granulomas. The lungs and pleural spaces are otherwise clear. No pneumothorax is seen. The skeletal structures are osteopenic. The bony thorax is grossly intact. IMPRESSION: No active disease in the chest. ACT 112: Negative or not required by law. Electronically signed by: Harpreet Bender M.D. 10/15/2021 1:24 PM Discharge Plan Visit Data Chief Complaint: Cardiac Assessment Stated Complaint: CHEST PRESSURE ED Provider: Daron Ram Discharge Problem: Chest pain, Hypertension Forms Stand Alone Forms: [facility] Prescriptions Prescriptions: No Action nitroglycerin 0.4 mg tablet, sublingual 0.4 mg sublingual Q5M PRN (Reason: chest pain) Qty: 25 RF: 6 conjugated estrogens 0.625 mg/gram cream 0.625 mg PV 2XWK RF: 0 clopidogrel 75 mg tablet 75 mg PO QAM Qty: 90 RF: 3 metoprolol succinate [Toprol XL] 25 mg tablet extended release 24 hr 25 mg PO DAILY Qty: 90 RF: 3 zinc gluconate 30 mg tablet 30 mg PO DAILY RF: 0 glutamine 500 mg capsule 500 mg PO DAILY RF: 0 ascorbate calcium (vitamin C) 500 mg tablet 500 mg PO BID RF: 0 acetaminophen [Tylenol] 325 mg capsule 325 mg PO QID PRN (Reason: Pain) RF: 0 simethicone [Phazyme] 180 mg capsule 180 mg PO BID PRN (Reason: Gastric Reflux) RF: 0 coenzyme Q10 [CoQ-10] 100 mg capsule 200 mg PO BID RF: 0 famotidine 40 mg tablet 40 mg PO HS RF: 0 pantoprazole 40 mg tablet,delayed release (DR/EC) 40 mg PO BID Qty: 60 RF: 2 albuterol sulfate 90 mcg/actuation Hfa Aerosol Inhaler 2 puff INHALATION BID PRN (Reason: sob) RF: 0 aspirin 81 mg Tablet,Delayed Release (Dr/Ec) 81 mg PO QAM RF: 0 cholecalciferol (vitamin D3) [Vitamin D3] 1,000 unit Capsule 5,000 unit PO QPM RF: 0 docusate sodium [Stool Softener] 100 mg Capsule 1 tab PO BID RF: 0 loratadine [Claritin] 10 mg Tablet 10 mg PO QAM PRN (Reason: allergies) RF: 0 Systane Balance 0.6 % Drops 1 - 2 drp OPHTHALMIC (EYE) BID RF: 0 Nasal Moisturizing 0.65 % Aerosol,[place] 1 - 2 spray INTRANASAL DAILY PRN (Reason: dryness) RF: 0 trolamine salicylate [Arthricream] 10 % Cream 1 applic TOPICAL BID PRN (Reason: Pain) RF: 0 vitamin K2 40 mcg tablet 100 mcg PO QAM RF: 0 rosuvastatin [Crestor] 10 mg tablet 10 mg PO HS RF: 0 cyanocobalamin (vitamin B-12) [Vitamin B-12] 1,000 mcg Tablet 1,000 mcg PO DAILY RF: 0 Referrals Referrals: Charles Chen MD [Primary Care Provider] - Discharge Problem: Chest pain Qualifiers: Chest pain type: unspecified Qualified Code(s): R07.9 - Chest pain, unspecified Hypertension Qualifiers: Hypertension type: unspecified Qualified Code(s): I10 - Essential (primary) hypertension
[2021-10-15 12:59] LABS: Basophils # (auto) 0.01 K/uL (0-0.2); Basophils % (auto) 0.1 %; Eosinophils # (auto) 0.15 K/uL (0-0.5); Hematocrit (blood only) 41.4 % (37-47); Hemoglobin 13.7 g/dL (12.0-16.0); Lymphocytes # (auto) 1.44 K/uL (1.2-3.4); Lymphocytes % (auto) 19.4 %; Mean Corpuscular Hemoglobin 28.4 pg (25-34); Mean Corpuscular Hgb Conc 33.1 g/dL (32-36); Mean Corpuscular Volume 85.9 fL (80-100); Mean Platelet Volume 10.7 fL (7.4-10.4); Monocytes # (auto) 0.63 K/uL (0.11-0.59); Monocytes % (auto) 8.5 %; Neutrophils # (auto) 5.18 K/uL (1.4-6.5); Platelet Count 230 K/uL (130-400); RDW Coefficient of Variation 12.4 % (11.5-14.5); RDW Standard Deviation 38.9 fL (36.4-46.3); Red Blood Count 4.82 M/uL (4.2-5.4); White Blood Count 7.41 K/uL (4.8-10.8)
--- NOTE | 2021-10-15 13:26 | XRay Report ---
SINGLE VIEW CHEST CLINICAL HISTORY: Atypical chest pain FINDINGS: An AP, portable, upright chest radiograph is compared to chest x-ray and chest CT dated . The cardiomediastinal silhouette is unremarkable noting atherosclerotic calcification of the thoracic aorta. There are scattered calcified granulomas. The lungs and pleural spaces are otherwise clear. No pneumothorax is seen. The skeletal structures are osteopenic. The bony thorax is grossly i ntact. IMPRESSION: No active disease in the chest. ACT 112: Negative or not required by law. Electronically signed by: Harpreet Bender M.D. 10/15/2021 1:24 PM
[2021-10-15 13:34] LABS: Albumin Globulin Ratio 1.4 (0.9-2); Albumin Level 4.3 gm/dl (3.4-5.0); BUN Creatinine Ratio 19.1 (10-20); Bilirubin,Total 0.5 mg/dl (0.2-1.0); Calcium 9.3 mg/dl (8.5-10.1); Creatinine Clr Calc Pharmacy 50.8 ml/min; Est GFR (African American) 69.3 ml/min; Est GFR (Non-African American) 59.8 ml/min; Globulin 3.1 gm/dl (2.5-4.0); Potassium 3.9 mmol/L (3.5-5.1); Total Protein 7.4 gm/dl (6.0-8.3)
[2021-10-15 13:37] LABS: Troponin I High Sensitivity 3.5 pg/ml (0-14)
--- NOTE | 2021-10-15 14:24 | History & Physical Report ---
Date of Service October 15, 2021 Assessment & Plan (1) Exertional angina: Plan: Patient with known history of CAD with MIGDALIA to the LAD in 02/2021 Presents with 3 to 4 weeks of increasing frequency and length of chest pains mostly with exertion but sometimes at rest including the day of presentation. Some of the components of her description are a bit atypical. Initial troponin is normal at 3.5, and ECG without ischemic changes. Chest pain resolved on its own. She has tried increasing her Protonix to twice daily for the last 2 days without relief. -Admit to PCU for telemetry monitoring -Trend serial troponin, ECGs -Check echocardiogram -Consult her collateral clerk-determine if needs repeat cardiac catheterization versus stress test-keep n.p.o. after midnight just in case -Continue home aspirin, Plavix, Crestor, metoprolol -Continue Protonix twice daily and Pepcid in case of GI cause -Control blood pressures-apparently well controlled at home but labile here- suspect white coat hypertension-will add on ARB as she believes she had cough with JULES inhibitor in the past-start losartan 50 mg daily (2) CAD (coronary artery disease): Plan: History of stent to the LAD in 02/2021 Follows with [facility] Continue home medications and add losartan She is on moderate intensity Crestor but reports a history of significant myalgias with statins and takes [id number] Crestor 10 mg daily for now (3) HTN (hypertension): Plan: Labile blood pressures in the hospital/doctor setting Blood pressures at home controlled as per patient Continue metoprolol succinate 25 mg daily for now and consider increasing dose -adding on ARB as above (4) Diabetes mellitus: Plan: Hemoglobin A1c 6.7% in 07/2021 Not on home medications ADA diet Accu-Cheks NovoLog sliding scale with correction factor only for now Consider adding metformin as an outpatient (5) Asthma: Plan: No acute issues, albuterol as needed (6) Occlusion of left vertebral artery: Plan: Continue antiplatelets and statin (7) GERD (gastroesophageal reflux disease): Plan: Continue Pepcid and Protonix Has a history of Mckeon's esophagus, receives surveillance EGDs with [facility] (8) Barretts esophagus: Plan: Continue surveillance EGDs (9) Dyslipidemia: Plan: Statin as above Plan: DVT prophylaxis-Lovenox SQ, SCDs Disposition-bring in on observation to telemetry unit Full code History of Present Illness Chief Complaint: Chest pain Primary Care Provider: Charles Chen MD Pt is a 76-year-old female with a h/o CAD s/p LAD PCI, hypertension, dyslipidemia, DM 2, chronic occlusion of left vertebral artery, GERD, SIBO, DM2, IBS, asthma, and urinary incontinence, who presents to the hospital with chest pressure coming and going for the last several weeks. It is described as a tightness all across the chest that sometimes radiates around to the left scapula. The pain comes on with exertion and at rest at times. Sometimes it comes on with walking, but then at other times she is able to do all of her exercises including rowing and does not have any chest pressure. It has been coming on more frequent and lasting longer lately despite increasing her PPI to twice daily as per her GI provider. She reports today the chest pressure came on while she was just sitting at [employer] and lasted approximately an hour. She reports some associated nausea but no diaphoresis or shortness of breath. She does have a mild headache now but this started after the Nitropaste was placed in the ER. There was outpatient planning for stress echocardiogram as per patient. She presented to the ER for further evaluation. Her initial troponin was negative, her ECG was without ischemic changes. Labs were otherwise u nremarkable, chest x-ray negative. She was quite hypertensive initially but reports that she often has high blood pressures around doctors but that her blood pressures at home are consistently in the 120s over 80s. She will be admitted for cardiac evaluation with underlying known history of CAD. Allergies Allergy/AdvReac Type Severity Reaction Status Date / Time codeine Allergy Severe TROUBLE Verified 10/15/21 12:56 BREATHING Home Medications Medication Instructions Recorded Confirmed Type albuterol sulfate 90 mcg/actuation 2 puff INHALATION BID PRN 05/23/18 10/15/21 History aerosol inhaler aspirin 81 mg tablet,delayed 81 mg PO QAM 05/23/18 10/15/21 History release cholecalciferol (vitamin D3) 25 5,000 unit PO QPM 05/23/18 10/15/21 History mcg (1,000 unit) capsule (Vitamin D3) docusate sodium 100 mg capsule 1 tab PO BID 05/23/18 10/15/21 History (Stool Softener) loratadine 10 mg tablet (Claritin) 10 mg PO QAM PRN 05/23/18 10/15/21 History propylene glycol 0.6 % eye drops 1 - 2 drp OPHTHALMIC (EYE) BID 05/23/18 10/15/21 History (Systane Balance) sodium chloride 0.65 % nasal spray 1 - 2 spray INTRANASAL DAILY PRN 05/23/18 10/15/21 History aerosol (Nasal Moisturizing) conjugated estrogens 0.625 mg/gram 0.625 mg PV 2XWK gm 01/20/19 10/15/21 History vaginal cream trolamine salicylate 10 % topical 1 applic TOPICAL BID PRN 03/23/19 10/15/21 History cream (Arthricream) vitamin K2 40 mcg tablet 100 mcg PO QAM tab 04/21/19 10/15/21 History cyanocobalamin (vitamin B-12) 1,000 mcg PO DAILY 03/06/21 10/15/21 History 1,000 mcg tablet (Vitamin B-12) clopidogrel 75 mg tablet 75 mg PO QAM #90 tab 03/13/21 10/15/21 Rx metoprolol succinate 25 mg 25 mg PO DAILY #90 tab 03/13/21 10/15/21 Rx tablet,extended release 24 hr (Toprol XL) nitroglycerin 0.4 mg sublingual 0.4 mg SUBLINGUAL Q5M PRN #25 tab 05/22/21 10/15/21 Rx tablet acetaminophen 325 mg capsule 325 mg PO QID PRN 07/17/21 10/15/21 History (Tylenol) ascorbate calcium (vitamin C) 500 500 mg PO BID 07/17/21 10/15/21 History mg tablet glutamine 500 mg capsule 500 mg PO DAILY 07/17/21 10/15/21 History simethicone 180 mg capsule 180 mg PO BID PRN 07/17/21 10/15/21 History (Phazyme) coenzyme Q10 100 mg capsule 200 mg PO BID cap 09/13/21 10/15/21 History (CoQ-10) zinc gluconate 30 mg tablet 30 mg PO DAILY 09/13/21 10/15/21 History famotidine 40 mg tablet 40 mg PO HS 10/13/21 10/15/21 History pantoprazole 40 mg tablet,delayed 40 mg PO BID #60 tab 10/13/21 10/15/21 Rx release rosuvastatin 10 mg tablet (Crestor) 10 mg PO HS 10/15/21 10/15/21 History Past Med/Surg History Medical History Acute severe vertigo Allergic rhinitis Asthma inhaler prn Mckeon's esophagus determined by endoscopy CAD (coronary artery disease) Chronic back pain Chronic pelvic pain in female Diabetes mellitus Dyslipidemia GERD (gastroesophageal reflux disease) Hiatal hernia HTN (hypertension) Irritable bowel syndrome with diarrhea Lower esophageal ring Occlusion of left vertebral artery Osteoarthritis Small intestinal bacterial overgrowth Urgency incontinence Surgical History History of colonoscopy History of dilatation and curettage x2 History of esophagogastroduodenoscopy (EGD) (04/2016) History of oophorectomy, unilateral History of root canal procedure History of total abdominal hysterectomy and additional unilateral oophorectomy History of wisdom tooth extraction S/P coronary artery stent placement Family History Father , age 73 Family history of diabetes mellitus Myocardial infarction Mother , 46 Scleroderma Son Heart disease cardiomyopathy Stroke Family history of diabetes mellitus Sister Ovarian cancer Family history of diabetes mellitus Brother Family history of diabetes mellitus Other No family history of adverse response to anesthesia Social History Smoking Status: Never smoker Second Hand Exposure: Yes (father smoked); Hx Alcohol Use: No Hx Substance Use: No Preferred Language: Tamaz[place] Communication Ability: Effective Podiatric Technician Required: No Beliefs That Will Affect Care: None marital status: Current Living Situation: Spouse Current Living Situation Comment: Carlos Manuel Hyman current occupational status: retired 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 No diarrhea or constipation. No leg swelling. Physical Exam Constitutional: WD/WN, vitals as above Eyes: PERRL, conjunctivae normal, anicteric sclerae ENMT: external ear and nose normal, oropharynx normal Neck: trachea midline, no thyromegaly Respiratory: normal respiratory effort, lungs clear to auscultation Cardiovascular: RRR, no murmur, no edema Chest (Breasts): Chest: normal inspection of chest Gastrointestinal (Abdomen): normal bowel sounds, soft, nontender, no hepatosplenomegaly Musculoskeletal: Extremities: extremities normal to inspection; no cyanosis and no clubbing Skin: no rashes, warm and dry Neurologic: moves all extremities and awake; no focal motor deficits Psychiatric: A+Ox3, euthymic affect Lymphatic: no lymphedema Results & Data Results & Data ([facility]) Vital Signs (Past 12 Hours) Vital Signs Temp Pulse Resp BP Pulse Ox 10/15/21 13:50 75 22 98 10/15/21 13:40 70 16 98 10/15/21 13:30 71 13 158/80 H 97 10/15/21 13:20 75 18 95 10/15/21 13:17 68 14 149/63 H 99 10/15/21 13:10 67 18 10/15/21 12:50 76 27 H 98 10/15/21 12:40 74 22 99 10/15/21 12:38 78 21 186/132 H 98 10/15/21 12:35 81 18 10/15/21 12:25 36.7 C 80 18 209/86 H 99 Laboratory Results 10/15/21 10/15/21 10/15/21 Range/Units 12:50 12:35 12:35 WBC 7.41 (4.8-10.8) K/uL RBC 4.82 (4.2-5.4) M/uL Hgb 13.7 (12.0-16.0) g/dL Hct 41.4 (37-47) % MCV 85.9 (80-100) fL MCH 28.4 (25-34) pg MCHC 33.1 (32-36) g/dL RDW Std Deviation 38.9 (36.4-46.3) fL RDW Coeff of Marie 12.4 (11.5-14.5) % Plt Count 230 (130-400) K/uL MPV 10.7 H (7.4-10.4) fL Immature Gran % (Auto) 0.0 % Neut % (Auto) 70.0 % Lymph % (Auto) 19.4 % Gaston % (Auto) 8.5 % Eos % (Auto) 2.0 % Baso % (Auto) 0.1 % Neut # (Auto) 5.18 (1.4-6.5) K/uL Lymph # (Auto) 1.44 (1.2-3.4) K/uL Gaston # (Auto) 0.63 H (0.11-0.59) K/uL Eos # (Auto) 0.15 (0-0.5) K/uL Baso # (Auto) 0.01 (0-0.2) K/uL Immature Gran # (Auto) 0.00 (0.00-0.02) K/uL Sodium 139 (136-145) mmol/L Potassium 3.9 (3.5-5.1) mmol/L Chloride 105 (98-107) mmol/L Carbon Dioxide 29 (21-32) mmol/L Anion Gap 5 (3-11) BUN 18 (6-23) mg/dl Creatinine 0.94 (0.6-1.2) mg/dl Est Cr Clr Drug Dosing 50.8 ml/min Est GFR ( Amer) 69.3 ml/min Est GFR (Non-Af Amer) 59.8 ml/min BUN/Creatinine Ratio 19.1 (10-20) Glucose 164 H (70-99(Fasting)) mg/dl Calcium 9.3 (8.5-10.1) mg/dl Total Bilirubin 0.5 (0.2-1.0) mg/dl AST 19 (13-39) U/L ALT 16 (7-52) U/L Alkaline Phosphatase 71 (34-104) U/L Troponin I High Sens 3.5 (0-14) pg/ml Total Protein 7.4 (6.0-8.3) gm/dl Albumin 4.3 (3.4-5.0) gm/dl Globulin 3.1 (2.5-4.0) gm/dl Albumin/Globulin Ratio 1.4 (0.9-2) Lipase 22 (11-82) U/L SARS-CoV-2, RNA, NAAT NEGATIVE (NEGATIVE) Diagnostic Findings Chest X-Ray 10/15/21 12:41 SINGLE VIEW CHEST CLINICAL HISTORY: Atypical chest pain FINDINGS: An AP, portable, upright chest radiograph is compared to chest x-ray and chest CT dated 03/06/2021. The cardiomediastinal silhouette is unremarkable noting atherosclerotic calcification of the thoracic aorta. There are scattered calcified granulomas. The lungs and pleural spaces are otherwise clear. No pneumothorax is seen. The skeletal structures are osteopenic. The bony thorax is grossly intact. IMPRESSION: No active disease in the chest. ACT 112: Negative or not required by law. Electronically signed by: Harpreet Bender M.D. 10/15/2021 1:24 PM ECG Additional Comments: ECG on 10/15/2021 at 1224 with normal sinus rhythm, rate 79, no acute ischemic changes Code Status & VTE Plan Code Status Full code VTE Prophylaxis Plan VTE Prophylaxis will be ordered: Yes PG Care Time/CCT Total # of Minutes Spent Total Time Spent with Patient: Total time spent is greater than 50% in coordination of care (as documented) at patient's floor/unit and/or counseling patient: Coding Level of Care Code INT OBSERVATION CARE 70M LVL 3 Diagnoses Barretts esophagus K22.70 CAD (coronary artery disease) I25.10 GERD (gastroesophageal reflux disease) K21.9 HTN (hypertension) I10 Hypertension type: unspecified Dyslipidemia E78.5 Exertional angina I20.8 Diabetes mellitus E11.9 Asthma J45.20 Asthma complication type: uncomplicated Asthma persistence: intermittent Asthma severity: mild Occlusion of left vertebral artery I65.02 (1) HTN (hypertension) Hypertension type: unspecified Qualified Code(s): I10 - Essential (primary) hypertension (2) Asthma Asthma complication type: uncomplicated Asthma persistence: intermittent Asthma severity: mild Qualified Code(s): J45.20 - Mild intermittent asthma, uncomplicated
[2021-10-15] MEDS ORDERED: ONDANSETRON INJ 2 MG/ML 2 ML VIAL IV PRN (17:53)
[2021-10-15] MEDS ORDERED: GLUCOSE 10 TABS/TUBE PO PRN (17:53)
[2021-10-15] MEDS ORDERED: DEXTROSE 50% 50 ML SYRINGE IV PRN (17:53)
[2021-10-15] MEDS ORDERED: CARBOHYDRATES FOR HYPOGLYCEMIA PO PRN (17:53)
[2021-10-15] MEDS ORDERED: GLUCAGON FOR INJ 1 MG VIAL SQ PRN (17:53)
[2021-10-15] MEDS ORDERED: NITROGLYCERIN SL 0.4 MG/TAB TAB SL PRN (17:53)
[2021-10-15] MEDS ORDERED: GLUCOSE 40% GEL 15 GM TUBE PO PRN (17:53)
[2021-10-15] MEDS ORDERED: ALBUTEROL HFA 8 GM INHALER INH PRN (17:53)
[2021-10-15] MEDS ORDERED: LORATADINE 10 MG TAB PO PRN (17:53)
[2021-10-15] MEDS ORDERED: POLYETHYLENE (MIRALAX) 17 GM PACK PO PRN (17:53)
[2021-10-15] MEDS ORDERED: ACETAMINOPHEN 325 MG TAB PO PRN (17:53)
[2021-10-15] MEDS ORDERED: SODIUM CHLORIDE 0.65% NA SOLN 45 ML (OCEAN) NAE PRN (17:53)
[2021-10-15] MEDS ORDERED: Nursing to Pharmacy Communication SCH (18:15)
[2021-10-15] MEDS: INSULIN ASPART PER UNIT SC SCH ×2 (18:28→22:12)
[2021-10-15] MEDS: LOSARTAN POTASSIUM 50 MG TAB PO SCH (18:31)
[2021-10-15] MEDS: PANTOprazole 40 MG TAB PO SCH (18:32)
[2021-10-15] MEDS ORDERED: ENOXAPARIN INJ 40 MG/0.4 ML SYR SQ SCH (19:00)
[2021-10-15] MEDS: DOCUSATE SODIUM 100 MG CAP PO SCH (20:59)
[2021-10-15] MEDS: ASCORBIC ACID 500 MG TAB PO SCH (20:59)
[2021-10-15] MEDS ORDERED: NON-FORMULARY MEDICATION (Coenzyme Q10 [Coq-10] 100 mg capsule) PO SCH (21:00)
[2021-10-15] MEDS ORDERED: ROSUVASTATIN CALCIUM 10 MG TAB PO SCH (21:00)
[2021-10-15] MEDS: ARTIFICIAL TEARS OP SCH (21:00)
[2021-10-15] MEDS ORDERED: PANTOprazole 40 MG TAB PO SCH (21:00)
[2021-10-15] MEDS ORDERED: CHOLECALCIFEROL 5,000 UNITS 125 MCG TAB PO SCH (21:00)
[2021-10-15] MEDS ORDERED: FAMOTIDINE 40 MG TABLET PO SCH (21:00)
[2021-10-15] MEDS ORDERED: PREMARIN VAG CRM 14 APPLN/30 GM TUBE PV SCH (21:00)
--- NOTE | 2021-10-15 23:00 | Electrocardiogram Report ---
Test Reason : Blood Pressure : / mmHG Vent. Rate : 079 BPM Atrial Rate : 079 BPM P-R Int : 166 ms QRS Dur : 080 ms QT Int : 382 ms P-R-T Axes : 072 050 049 degrees QTc Int : 438 ms Normal sinus rhythm Possible Left atrial enlargement Nonspecific ST abnormality Abnormal ECG When compared with ECG of 05-APR-2021 13:33, No significant change was found Confirmed by Sha New ([id number]) on 10/15/2021 10:59:48 PM Referred By: REFERRED SELF Confirmed By:Sha New
--- NOTE | 2021-10-16 08:02 | Cardiology Consultation ---
Date of Consultation October 16, 2021 Assessment & Plan (1) CAD (coronary artery disease): (2) S/P coronary artery stent placement: (3) Chest pain: (4) Dyslipidemia: (5) HTN (hypertension): ASSESSMENT/PLAN: 1. Chest pain: Exertional and accompanied by belching. Initially described as similar as prior angina however when reviewing old records, it is now described differently than prior angina in February of 2021. High sensitivity troponin is quite reassuring, especially with prolonged episode 1 day prior to presentation. However, given exertional symptoms and overall description, recommend stress echo. Was seen by GI on 10/13/2021 and Protonix was increased to b.i.d. 2. CAD s/p LAD PCI: Plan as above. Continue anti-platelet therapy indefinitely in the form of aspirin 81 mg daily. Continue Plavix. Continue statin therapy as tolerated. Continue beta-bia. 3. Hypertension: Blood pressure well controlled. No changes made at this time. 4. Dyslipidemia: Continue statin therapy as tolerated. Has had myalgias in the past with statins. LDL well controlled. Goal LDL < 70. 5. Disposition: If stress echo is unremarkable, can be discharged home from a cardiology perspective. If symptoms persist, EGD is being considered by GI. Patient care discussed with Dr. Carvajal of the primary hospitalist service. Thank you for allowing me to participate in the care of your patient. Please call for any other questions or concerns. Sincerely, Jerry Roque M.D. History of Present Illness Reason for Consultation: Chest pain, known CAD Requesting Physician: Dr. Hussein Attending Physician: Daron Carvajal DO History of Present Illness Mrs. Avina is a very pleasant 76-year-old female with a history significant for CAD s/p LAD PCI, hypertension, dyslipidemia, pre diabetes, and strong family history of CAD. She was admitted on 03/06/2021 with exertional chest discomfort. Angina was described as burning across her chest with mild dyspnea. Her troponins were negative. Presenting ECG was unremarkable. A stress echo was ordered by the primary hospitalist service and abnormal, suggesting LAD ischemia (distal inferior wall and apex). Cardiac catheterization demonstrated severe mid LAD CAD and she underwent PCI. She has had the following studies/procedures: 1. Stress echo 03/07/2021 [facility] : Abnormal suggesting LAD ischemia hypertensive blood pressure response. EF 60-65%. Normal wall motion at rest. No significant valvular abnormalities. RVSP 20. 2. Cardiac catheterization 03/07/2021 [facility]: Ostial LAD 30%. Mid LAD 95%. Distal LAD 20%. Proximal large OM1 20%. Dominant RCA. Mid RCA diffuse 10- 20%. LVEDP 8. No .Underwent PCI with 3 x 18 mm resolute MIGDALIA. 3. 48 hour Holter 04/2021: Sinus rhythm with an average rate of 73 bpm. Range 52-104 bpm. No significant pauses or AV block. Very rare isolated PACs and PVCs. No complex atrial or ventricular arrhythmia. Symptoms/event had no correlate. She was hospitalized on 10/15/2021 for chest discomfort. She described her chest discomfort as a pressure that could occur on the right side of her chest, the left side of her chest, or both. It was exertional only but also tended to occur with exertion after eating. Her longest episode was on 10/14/2021, lasting approximately 1 hour before spontaneously subsiding. Her last episode of chest discomfort was on 10/15/2021, the day of presentation. There was no associated shortness of breath and no radiation of the pain. She believes that the discomfort is similar to prior angina however now it is accompanied by belching and she wonders if it could be gas. She did not try nitroglycerin as most symptoms resolved quickly. When reviewing records, her angina in the past was described as burning. She has occasional nausea but not associated with her presenting symptoms. She exercises 4 days per week for at least 30 minutes at the gym and then also goes for a walk in the evenings, including inclines. She has been noticing exertional chest discomfort intermittently since 09/12/2021. She is sometimes able to exert herself without symptoms. She denies syncope, near-syncope, palpitations, edema, melena, hematochezia, hematuria, shortness of breath, orthopnea, or vomiting. Review of systems:As above. Review of systems otherwise negative/unremarkable. Family history:Father at 73 with LA. Brother at 60 with LA. Sister had CABG near 65 years of age. Daughter has elevated lipids. Son with CHF with severe LV systolic dysfunction diagnosed at the age of 50. He also had strokes. Grandchild with cancer. Social history:She denies tobacco or drug abuse. Rare alcohol. She lives at home with her . Two children (son and daughter Fiorella Beckford). She has grandchildren. She is retired. She was unaccompanied. Allergies Allergy/AdvReac Type Severity Reaction Status Date / Time codeine Allergy Severe TROUBLE Verified 10/15/21 12:56 BREATHING Home Medications Medication Instructions Recorded Confirmed Type albuterol sulfate 90 mcg/actuation 2 puff INHALATION BID PRN 05/23/18 10/15/21 History aerosol inhaler aspirin 81 mg tablet,delayed 81 mg PO QAM 05/23/18 10/15/21 History release cholecalciferol (vitamin D3) 25 5,000 unit PO QPM 05/23/18 10/15/21 History mcg (1,000 unit) capsule (Vitamin D3) docusate sodium 100 mg capsule 1 tab PO BID 05/23/18 10/15/21 History (Stool Softener) loratadine 10 mg tablet (Claritin) 10 mg PO QAM PRN 05/23/18 10/15/21 History propylene glycol 0.6 % eye drops 1 - 2 drp OPHTHALMIC (EYE) BID 05/23/18 10/15/21 History (Systane Balance) sodium chloride 0.65 % nasal spray 1 - 2 spray INTRANASAL DAILY PRN 05/23/18 10/15/21 History aerosol (Nasal Moisturizing) conjugated estrogens 0.625 mg/gram 0.625 mg PV 2XWK gm 01/20/19 10/15/21 History vaginal cream trolamine salicylate 10 % topical 1 applic TOPICAL BID PRN 03/23/19 10/15/21 History cream (Arthricream) vitamin K2 40 mcg tablet 100 mcg PO QAM tab 04/21/19 10/15/21 History cyanocobalamin (vitamin B-12) 1,000 mcg PO DAILY 03/06/21 10/15/21 History 1,000 mcg tablet (Vitamin B-12) clopidogrel 75 mg tablet 75 mg PO QAM #90 tab 03/13/21 10/15/21 Rx metoprolol succinate 25 mg 25 mg PO DAILY #90 tab 03/13/21 10/15/21 Rx tablet,extended release 24 hr (Toprol XL) nitroglycerin 0.4 mg sublingual 0.4 mg SUBLINGUAL Q5M PRN #25 tab 05/22/21 10/15/21 Rx tablet acetaminophen 325 mg capsule 325 mg PO QID PRN 07/17/21 10/15/21 History (Tylenol) ascorbate calcium (vitamin C) 500 500 mg PO BID 07/17/21 10/15/21 History mg tablet glutamine 500 mg capsule 500 mg PO DAILY 07/17/21 10/15/21 History simethicone 180 mg capsule 180 mg PO BID PRN 07/17/21 10/15/21 History (Phazyme) coenzyme Q10 100 mg capsule 200 mg PO BID cap 09/13/21 10/15/21 History (CoQ-10) zinc gluconate 30 mg tablet 30 mg PO DAILY 09/13/21 10/15/21 History famotidine 40 mg tablet 40 mg PO HS 10/13/21 10/15/21 History pantoprazole 40 mg tablet,delayed 40 mg PO BID #60 tab 10/13/21 10/15/21 Rx release rosuvastatin 10 mg tablet (Crestor) 10 mg PO HS 10/15/21 10/15/21 History Patient History Medical History Acute severe vertigo Allergic rhinitis Asthma inhaler prn Mckeon's esophagus determined by endoscopy CAD (coronary artery disease) Chronic back pain Chronic pelvic pain in female Diabetes mellitus Dyslipidemia GERD (gastroesophageal reflux disease) Hiatal hernia HTN (hypertension) Irritable bowel syndrome with diarrhea Lower esophageal ring Occlusion of left vertebral artery Osteoarthritis Small intestinal bacterial overgrowth Urgency incontinence Surgical History History of colonoscopy History of dilatation and curettage x2 History of esophagogastroduodenoscopy (EGD) (04/2016) History of oophorectomy, unilateral History of root canal procedure History of total abdominal hysterectomy and additional unilateral oophorectomy History of wisdom tooth extraction S/P coronary artery stent placement Family History Father , age 73 Family history of diabetes mellitus Myocardial infarction Mother , 46 Scleroderma Son Heart disease cardiomyopathy Stroke Family history of diabetes mellitus Sister Ovarian cancer Family history of diabetes mellitus Brother Family history of diabetes mellitus Other No family history of adverse response to anesthesia Social History Smoking Status: Never smoker Second Hand Exposure: Yes (father smoked); Hx Alcohol Use: No Hx Substance Use: No Preferred Language: Amharic Communication Ability: Effective 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 Alert and oriented. HEENT: Anicteric sclera. Neck: No JVD. No bruit. Normal carotid upstrokes bilaterally. Cardiac: No ventricular heave. Regular. Normal S1-S2. No murmurs, rubs, or gallops. Pulmonary: Clear to auscultation bilaterally without wheezes, rales, or rhonchi. Abdomen: Soft, nontender, nondistended, with normoactive bowel sounds. No bruits noted. Extremities: 2+ radial pulses bilaterally. 2+ posterior tibialis pulses bilaterally. No edema or cyanosis. Psychiatric: Affect appears appropriate. Chest: Nontender to palpation. Results & Data ([facility]) Vital Signs (Past 12 Hours) Vital Signs Temp Pulse Pulse Resp BP Pulse Ox 10/16/21 07:57 36.5 C 64 17 137/82 98 10/16/21 07:28 62 10/16/21 03:30 36.7 C 64 17 117/72 98 10/16/21 01:35 61 10/15/21 23:15 36.6 C 60 18 119/68 97 Laboratory Results Laboratory Results - last 24 hr 10/15/21 10/15/21 10/15/21 18:10 18:26 20:48 POC Glucose 113 H 152 H Troponin I High Sens 5.0 10/15/21 10/16/21 10/16/21 23:47 00:31 12:00 POC Glucose 108 H 115 H Troponin I High Sens 4.2 Diagnostic Findings Telemetry personally reviewed: Sinus rhythm. No arrhythmia. Echo 10/16/2021: Normal LV size, wall motion, systolic function. EF 60-65%. Mild LVH. No significant valvular abnormalities. RVSP 31. ECGs personally reviewed: ECG 10/15/2021 at 12:24 p.m.: Sinus rhythm 79 beats per minute. Nonspecific ST abnormality. ECG 10/16/2021 at 3:34 a.m.: Sinus rhythm 64 beats per minute. The Chest x-ray 10/15/2021: No active disease in the chest per Radiology. Medications Administered Current Inpatient Medications Acetaminophen (Acetaminophen 325 Mg Tab) 650 mg PO Q4H PRN PRN Reason: Pain or Fever Stop: 11/14/21 17:52 Albuterol (Albuterol Hfa 8 Gm Inhaler) 2 puffs INH BID PRN PRN Reason: sob Stop: 11/14/21 17:52 Artificial Tears (Artificial Tears) 2 drops OP BID HARRIS Stop: 11/14/21 20:59 Last Admin: 10/16/21 09:01 Dose: 2 drops Documented by: Ascorbic Acid (Ascorbic Acid 500 Mg Tab) 500 mg PO BID HARRIS Stop: 11/14/21 20:59 Last Admin: 10/16/21 08:59 Dose: 500 mg Documented by: Aspirin (Aspirin 81 Mg Ectab) 81 mg PO QAM HARRIS Stop: 11/15/21 08:59 Last Admin: 10/16/21 09:00 Dose: 81 mg Documented by: Clopidogrel Bisulfate (Clopidogrel Bisulfate 75 Mg Tab) 75 mg PO QAM HARRIS Stop: 11/15/21 08:59 Last Admin: 10/16/21 09:00 Dose: 75 mg Documented by: Cyanocobalamin (Cyanocobalamin (B-12) 500 Mcg Tablet) 1,000 mcg PO DAILY HARRIS Stop: 11/15/21 08:59 Last Admin: 10/16/21 09:01 Dose: 1,000 mcg Documented by: Dextrose (Dextrose 50% 50 Ml Syringe) 25 - 50 ml IV UD PRN; Protocol PRN Reason: Hypoglycemia Protocol Stop: 11/14/21 17:52 Docusate Sodium (Docusate Sodium 100 Mg Cap) 100 mg PO BID HARRIS Stop: 11/14/21 20:59 Last Admin: 10/16/21 08:59 Dose: 100 mg Documented by: Enoxaparin Sodium (Enoxaparin Inj 40 Mg/0.4 Ml Syr) 40 mg SQ Q24H HARRIS Stop: 11/14/21 18:59 Last Admin: 10/15/21 18:32 Dose: 40 mg Documented by: Estrogens Conjugated (Premarin Vag Crm 14 Appln/30 Gm Tube) 1 appln PV SuTh@HS [facility] Stop: 11/14/21 20:59 Last Admin: 10/15/21 21:03 Dose: Not Given Documented by: Famotidine (Famotidine 40 Mg Tablet) 40 mg PO HS [facility] Stop: 11/14/21 20:59 Last Admin: 10/15/21 20:59 Dose: 40 mg Documented by: Glucagon (Glucagon For Inj 1 Mg Vial) 1 mg SQ UD PRN; Protocol PRN Reason: Hypoglycemia Protocol Stop: 11/14/21 17:52 Glucose (Glucose 10 Tabs/Tube) 4 - 8 tabs PO UD PRN; Protocol PRN Reason: Hypoglycemia Protocol Stop: 11/14/21 17:52 Glucose (Glucose 40% Gel 15 Gm Tube) 15 - 30 gm PO UD PRN; Protocol PRN Reason: Hypoglycemia Protocol Stop: 11/14/21 17:52 Insulin Aspart (Insulin Aspart Per Unit) 0 units SC ACHS [facility] Stop: 11/14/21 17:52 Last Admin: 10/16/21 12:12 Dose: Not Given Documented by: Loratadine (Loratadine 10 Mg Tab) 10 mg PO QAM PRN PRN Reason: allergies Stop: 11/14/21 17:52 Losartan Potassium (Losartan Potassium 50 Mg Tab) 50 mg PO QAM [facility] Stop: 11/14/21 17:52 Last Admin: 10/16/21 09:00 Dose: 50 mg Documented by: Metoprolol Succinate (Metoprolol Succ 25mg Ext Rel Tab) 25 mg PO DAILY [facility] Stop: 11/15/21 08:59 Last Admin: 10/16/21 09:00 Dose: 25 mg Documented by: Miscellaneous (Carbohydrates For Hypoglycemia ) 15 - 30 gm PO UD PRN PRN Reason: Hypoglycemia Protocol Stop: 11/14/21 17:52 Nitroglycerin (Nitroglycerin Sl 0.4 Mg/Tab Tab) 0.4 mg SL Q5M PRN PRN Reason: chest pain Stop: 11/14/21 17:52 Ondansetron HCl (Ondansetron Inj 2 Mg/Ml 2 Ml Vial) 4 mg IV Q6H PRN PRN Reason: Nausea Stop: 11/14/21 17:52 Pantoprazole Sodium (Pantoprazole 40 Mg Tab) 40 mg PO BID@0700,1600 [facility] Stop: 11/14/21 18:59 Last Admin: 10/16/21 09:00 Dose: 40 mg Documented by: Polyethylene Glycol (Polyethylene (Miralax) 17 Gm Pack) 17 gm PO DAILY PRN PRN Reason: Constipation Stop: 11/14/21 17:52 Rosuvastatin Calcium (Rosuvastatin Calcium 10 Mg Tab) 10 mg PO HS HARRIS Stop: 11/14/21 20:59 Last Admin: 10/15/21 20:59 Dose: 10 mg Documented by: Sodium Chloride (Sodium Chloride 0.65% Na Soln 45 Ml ([place])) 2 sprays ANNIE DAILY PRN PRN Reason: dryness Stop: 11/14/21 17:52 Vitamin D (Cholecalciferol 5,000 Units 125 Mcg Tab) 5,000 units PO QPM HARRIS Stop: 11/14/21 20:59 Last Admin: 10/15/21 20:59 Dose: 5,000 units Documented by: PG Care Time/CCT Total # of Minutes Spent Total Time Spent with Patient: Total time spent is greater than 50% in coordination of care (as documented) at patient's floor/unit and/or counseling patient: Coding Level of Care Code 15020 Office/Outpt Visit, Est Diagnoses CAD (coronary artery disease) I25.10 S/P coronary artery stent placement Z95.5 Chest pain R07.9 Chest pain type: unspecified Dyslipidemia E78.5 HTN (hypertension) I10 Hypertension type: unspecified (1) Chest pain Chest pain type: unspecified Qualified Code(s): R07.9 - Chest pain, unspecified (2) HTN (hypertension) Hypertension type: unspecified Qualified Code(s): I10 - Essential (primary) hypertension
[2021-10-16] MEDS: INSULIN ASPART PER UNIT SC SCH ×3 (08:03→17:22)
[2021-10-16] MEDS: DOCUSATE SODIUM 100 MG CAP PO SCH (08:59)
[2021-10-16] MEDS: ASCORBIC ACID 500 MG TAB PO SCH (08:59)
[2021-10-16] MEDS ORDERED: METOPROLOL SUCC 25MG EXT REL TAB PO SCH (09:00)
[2021-10-16] MEDS ORDERED: CYANOCOBALAMIN (B-12) 500 MCG TABLET PO SCH (09:00)
[2021-10-16] MEDS ORDERED: CLOPIDOGREL BISULFATE 75 MG TAB PO SCH (09:00)
[2021-10-16] MEDS: PANTOprazole 40 MG TAB PO SCH ×2 (09:00→17:14)
[2021-10-16] MEDS ORDERED: ASPIRIN 81 MG ECTAB PO SCH (09:00)
[2021-10-16] MEDS: LOSARTAN POTASSIUM 50 MG TAB PO SCH (09:00)
[2021-10-16] MEDS: ARTIFICIAL TEARS OP SCH (09:01)
--- NOTE | 2021-10-16 11:03 | XCELERA ---
[id number]___[id number]
--- NOTE | 2021-10-16 16:53 | Discharge Summary ---
Date of Service October 16, 2021 Admission HPI Per Admitting Provider Pt is a 76-year-old female with a h/o CAD s/p LAD PCI, hypertension, dyslipidemia, DM 2, chronic occlusion of left vertebral artery, GERD, SIBO, DM2, IBS, asthma, and urinary incontinence, who presents to the hospital with chest pressure coming and going for the last several weeks. It is described as a tightness all across the chest that sometimes radiates around to the left scapula. The pain comes on with exertion and at rest at times. Sometimes it comes on with walking, but then at other times she is able to do all of her exercises including rowing and does not have any chest pressure. It has been coming on more frequent and lasting longer lately despite increasing her PPI to twice daily as per her GI provider. She reports today the chest pressure came on while she was just sitting at [employer] and lasted approximately an hour. She reports some associated nausea but no diaphoresis or shortness of breath. She does have a mild headache now but this started after the Nitropaste was placed in the ER. There was outpatient planning for stress echocardiogram as per patient. She presented to the ER for further evaluation. Her initial troponin was negative, her ECG was without ischemic changes. Labs were otherwise unremarkable, chest x-ray negative. She was quite hypertensive initially but reports that she often has high blood pressures around doctors but that her blood pressures at home are consistently in the 120s over 80s. She will be admitted for cardiac evaluation with underlying known history of CAD. Principal Diagnosis chest pain - likely rib related Discharge Exam gen aaox3 pleasant nad heent nc at mmm breathing unlabored no accessory muscles msk/ost - L sided ribs tender decreased ROM reproduces tenderness/discomfort/tightness some Discharge Data Allergies Allergy/AdvReac Type Severity Reaction Status Date / Time codeine Allergy Severe TROUBLE Verified 10/15/21 12:56 BREATHING Consultations 10/15/21 14:12 ED Decision to Admit Stat 10/15/21 17:53 Consult Cardiology Routine Hospital Course (1) Chest pain: ddx was MSK (rib related - doing more chest exercises, started then, somewhat erratic when it comes vs not) vs cardiac (felt a lot like prior angina, was exertional, has known CAD) -IL ruled out w negative serial troponins -stress echo negative on discussion with cardiology ---therefore unlikely to be cardiac --- safe/stable for home Total Time Total Time Spent Total Time Spent (In Minutes): <30 Discharge Plan Discharge Items Patient Disposition: Home - Self-Care Reason For Visit: CHEST PAIN Follow-up/Referrals: Charles Chen MD [Primary Care Provider] - Stand-Alone Forms: My [facility] [employer], Smoking Cessation Medications and DC Order Prescriptions: No Action nitroglycerin 0.4 mg tablet, sublingual 0.4 mg sublingual Q5M PRN (Reason: chest pain) Qty: 25 RF: 6 conjugated estrogens 0.625 mg/gram cream 0.625 mg PV 2XWK RF: 0 clopidogrel 75 mg tablet 75 mg PO QAM Qty: 90 RF: 3 metoprolol succinate [Toprol XL] 25 mg tablet extended release 24 hr 25 mg PO DAILY Qty: 90 RF: 3 zinc gluconate 30 mg tablet 30 mg PO DAILY RF: 0 glutamine 500 mg capsule 500 mg PO DAILY RF: 0 ascorbate calcium (vitamin C) 500 mg tablet 500 mg PO BID RF: 0 acetaminophen [Tylenol] 325 mg capsule 325 mg PO QID PRN (Reason: Pain) RF: 0 simethicone [Phazyme] 180 mg capsule 180 mg PO BID PRN (Reason: Gastric Reflux) RF: 0 coenzyme Q10 [CoQ-10] 100 mg capsule 200 mg PO BID RF: 0 famotidine 40 mg tablet 40 mg PO HS RF: 0 pantoprazole 40 mg tablet,delayed release (DR/EC) 40 mg PO BID Qty: 60 RF: 2 albuterol sulfate 90 mcg/actuation Hfa Aerosol Inhaler 2 puff INHALATION BID PRN (Reason: sob) RF: 0 aspirin 81 mg Tablet,Delayed Release (Dr/Ec) 81 mg PO QAM RF: 0 cholecalciferol (vitamin D3) [Vitamin D3] 1,000 unit Capsule 5,000 unit PO QPM RF: 0 docusate sodium [Stool Softener] 100 mg Capsule 1 tab PO BID RF: 0 loratadine [Claritin] 10 mg Tablet 10 mg PO QAM PRN (Reason: allergies) RF: 0 Systane Balance 0.6 % Drops 1 - 2 drp OPHTHALMIC (EYE) BID RF: 0 Nasal Moisturizing 0.65 % Aerosol,[place] 1 - 2 spray INTRANASAL DAILY PRN (Reason: dryness) RF: 0 trolamine salicylate [Arthricream] 10 % Cream 1 applic TOPICAL BID PRN (Reason: Pain) RF: 0 vitamin K2 40 mcg tablet 100 mcg PO QAM RF: 0 rosuvastatin [Crestor] 10 mg tablet 10 mg PO HS RF: 0 cyanocobalamin (vitamin B-12) [Vitamin B-12] 1,000 mcg Tablet 1,000 mcg PO DAILY RF: 0 Admission Data Admit Date/Time: 10/15/21 15:38 Attending Provider: Daron Carvajal Admit Provider: Corine Hussein Primary Care Provider: Charles Chen Other Providers: Corine Hussein ; Rachid Roque Coding Level of Care Code 12405 OBS Care - Discharge Diagnoses Chest pain R07.9 Chest pain type: unspecified
--- NOTE | 2021-10-16 22:38 | XCELERA ---
[id number]
--- NOTE | 2021-10-18 06:03 | Electrocardiogram Report ---
Test Reason : Blood Pressure : / mmHG Vent. Rate : 064 BPM Atrial Rate : 064 BPM P-R Int : 164 ms QRS Dur : 076 ms QT Int : 428 ms P-R-T Axes : 064 044 044 degrees QTc Int : 441 ms Normal sinus rhythm Normal ECG When compared with ECG of 15-OCT-2021 12:24, No significant change was found Confirmed by Rachid Roque ([id number]) on 10/18/2021 6:03:18 AM Referred By: REFERRED SELF Confirmed By:Rachid Roque
== END 2021-10-16 17:59 | disposition home or self-care (01) ==
LOC: 2S 12:20 → ED 12:20 → SUATTDRO 15:38 → 2S 17:13